=== PATIENT | female | born 1935 | race Caucasian/White ===

== ENCOUNTER 2016-10-28 05:38 | Inpatient (IN) | payer MEDICARE ==
[2016-10-28] MEDS ORDERED: Hydromorphone 1 mg/ml Ampule IV ONE (06:05)
[2016-10-28] MEDS ORDERED: Sodium Chloride 0.9% 1000 ML 1,000 ML IV STA (06:05)
[2016-10-28] MEDS ORDERED: Phenergan 25 MG INJ IV ONE (06:05)
[2016-10-28] MEDS ORDERED: Sodium Chloride 0.9% 1000 ML 1,000 ML ONE (06:12)
[2016-10-28] MEDS ORDERED: Hydromorphone 1 mg/ml Ampule ONE (06:12)
[2016-10-28] MEDS ORDERED: Phenergan 25 MG INJ ONE (06:12)
--- NOTE | 2016-10-28 06:12 | ERPHSYRPT ---
- History of Present Illness Historian: patient Exam Limitations: no limitations Patient Subjective Stated Complaint: pt states she has been vomiting all night and hasnt felt good since yesterday at supper. [facility] staff states she has a hx of bowel obstr and vomit has begun to smell like stool. Triage Nursing Assessment: pt alert and oriented to person, place, and time. repetitive speech noted. skin pink warm and dry. respirations nonlabored with lungs cta. bowel sounds to all 4 quads hypo. pt states she was passing flatus with her last bm at approx 1900 yesterday. no vomiting at this time. Timing/Duration: yesterday Quality: cramping Abdominal Pain Onset Location: generalized abdomen Severity of Pain-Max: moderate Severity of Pain-Current: moderate Modifying Factors: Improves With: eating Associated Symptoms: vomiting (fecal-smelling emesis) Previous symptoms: same symptoms as today (with prior SBO) Hx Tetanus, Diphtheria Vaccination/Date Given: Yes Hx Influenza Vaccination/Date Given: Yes Hx Pneumococcal Vaccination/Date Given: Yes Immunizations Up to Date: No <EVIN JOSE - Last Filed: 10/28/16 07:29> <JAY DE LEON - Last Filed: 10/28/16 07:44> - History of Present Illness Time Seen by Provider: 10/28/16 06:01 Physician History: FOR THE PAST 11 HOURS PT HAS HAD 3 EPISODES OF VOMITING WITHOUT BLOOD AND DIARRHEA X1 WITH MID ABDOMINAL PAIN AND NAUSEA. PT DENIES CHEST PAIN, SHORTNESS OF AIR, FEVER. (EVIN JOSE) Allergies/Adverse Reactions: No Known Drug Allergies Allergy (Verified 10/28/16 06:02) Home Medications: Potassium Chloride 20 Meq Tab [Potassium Chloride 20 MEQ TABLET] 20 meq PO BID 10/23/14 [History] Rosuvastatin Calcium [Crestor] 10 mg PO HS 10/23/14 [History] Furosemide [Lasix] 40 mg PO 0800 11/04/14 [History] Magnesium Oxide 400 mg [Mag-Ox 400] 800 mg PO 08,199906/03/15 [History] Omeprazole 20 MG [Prilosec 20 mg] 20 mg PO BID 06/03/15 [History] Acetaminophen 325 mg [Tylenol 325 mg] 650 mg PO Q4HPRN PRN 11/26/15 [ History] Docusate Sodium 100 mg [Colace 100 MG] 1 cap PO DAILY 11/26/15 [History] Lorazepam 0.5 mg [Ativan 0.5 MG] 1 tab PO HSPRN PRN 11/26/15 [History] Glucagon 1 mg [GlucaGen 1 MG] 1 mg IM UD PRN 03/31/16 [History] Na Phos,M-B/Na Phos,Di-Ba [Enema] 1 applic RC DAILY PRN PRN 03/31/16 [History] Tramadol HCl 50 mg [Ultram 50 mg] 50 mg PO Q6HPRN PRN 03/31/16 [History] Guaifenesin [Q-Tussin] 100 mg PO Q4HPRN PRN 10/28/16 [History] - Review of Systems Constitutional: No Fever Eyes: No Symptoms Ears, Nose, & Throat: No Symptoms Respiratory: No Dyspnea Cardiac: No Chest Pain Abdominal/Gastrointestinal: Abdominal Pain, Nausea, Vomiting, Diarrhea Neurological: No Symptoms Psychological: No Symptoms Endocrine: No Symptoms Hematologic/Lymphatic: No Symptoms All Other Systems: Reviewed and Negative <EVIN JOSE - Last Filed: 10/28/16 07:29> - Past Medical History Pertinent Past Medical History: Yes Neurological History: Dementia ENT History: No Pertinent History Cardiac History: High Cholesterol, Hypertension Respiratory History: No Pertinent History Endocrine Medical History: Diabetes Type II Musculoskeletal History: No Pertinent History GI Medical History: GERD History: No Pertinent History Psycho-Social History: No Pertinent History Female Reproductive Disorders: No Pertinent History Other Medical History: post procedural HTN, kidney infections, bowel obstructions - Past Surgical History Past Surgical History: Yes Neuro Surgical History: No Pertinent History Cardiac: No Pertinent History Respiratory: No Pertinent History Gastrointestinal: Cholecystectomy Musculoskeletal: No Pertinent History Female Surgical History: Hysterectomy Other Surgical History: Tonsils removed as child, son [facility] did a stomach ulcer surgery about a year ago - Social History Smoking Status: Never smoker Exposure to second hand smoke: No Drug Use: none Patient Lives Alone: No - Female History Hx Last Menstrual Period: post <EVIN JOSE - Last Filed: 10/28/16 07:29> - Physical Exam General Appearance: alert Eye Exam: PERRL/EOMI Ears, Nose, Throat Exam: pharynx normal, dry mucous membranes Neck Exam: normal inspection Respiratory Exam: lungs clear Cardiovascular Exam: normal heart sounds Gastrointestinal/Abdomen Exam: soft, tenderness (MILD DIFFUSE ABDOMINAL TENDERNESS), other (B.S. MILDLY HYPERACTIVE AND NORMOTONIC.) Back Exam: normal range of motion Extremity Exam: normal inspection Neurologic Exam: alert, cooperative Skin Exam: warm, dry SpO2 Interpretation: normal SpO2: 94 Oxygen Delivery: Room Air <DAMONEVIN VELASQUEZLASHAE - Last Filed: 10/28/16 07:29> <JAY DE LEON - Last Filed: 10/28/16 07:44> - Nursing Vital Signs Nursing Vital Signs: Initial Vital Signs Temperature 97.8 F Temperature Source Oral Pulse Rate 91 Respiratory Rate 18 Blood Pressure [] 128/68 Pain Intensity 4 - Course Nursing assessment & vital signs reviewed: Yes - CT Exams Abdomen/Pelvis CT Interpretation: Tele-radiologist Report (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 Grossly unchanged. Recurrent severe SBO with transition point not identified, likely mid ileum.) <DAMONEVIN - Last Filed: 10/28/16 07:29> - Progress Progress: unchanged Discussed with DrJulia: Ezra (accepts admit.), Other (Dr. Kenia Deluca notified with recs for NG to low wall int suction and Mefoxin 1 gm Q6 hours IV. ) Counseled pt/family regarding: lab results, diagnosis, need for follow-up, rad results <DAMONEVIN TASHA - Last Filed: 10/28/16 07:29> - Departure Time of Disposition: 07:30 Departure Disposition: In-patient Admission Critical Care Time: Yes Critical Care Time(excluding separately billable procedures): 30-74 minutes <DAMONEVIN EDLASHAE - Last Filed: 10/28/16 07:29> - Departure Critical Care Time: Yes Critical Care Time(excluding separately billable procedures): 30-74 minutes <JAY DE LEON - Last Filed: 10/28/16 07:44> - Departure Clinical Impression: Small bowel obstruction Diabetes mellitus Qualifiers: Diabetes mellitus type: type 2 Diabetes mellitus complication status: without complication Diabetes mellitus residential insulin use: unspecified residential insulin use status Qualified Code(s): E11.9 - Type 2 diabetes mellitus without complications Condition: Stable Referrals: ARI DAMICO MD [Primary Care Provider] -
[2016-10-28 06:31] LABS: BASOPHIL % 0.1 % (0.0-0.4); Eosinophil % 0.1 % (0.00-5.0); Granulocytes % 87.3 % (36.0-66.0); Lymphocytes % 8.2 % (24.0-44.0); Mean Cell Volume 89.9 fl (78-100); Mean Corpuscular Hemoglobin 28.8 pg (26-32); Mean Platelet Volume 9.6 fl (6-9.5); Monocytes % 4.3 % (0.0-12.0); Platelet Count 284 K/mm3 (150-450); Red Blood Count 5.34 M/mm3 (4.1-5.4)
[2016-10-28 06:40] LABS: Bacteria FEW /HPF (NEGATIVE); COMPLETE URINE MICROSCOPIC? YES; Collection Type CATH; Mucus SLIGHT /HPF (NEGATIVE)
[2016-10-28 06:56] LABS: ALBUMIN 4.6 g/dL (3.4-5.0); ANION GAP 15.7 MEQ/L (5-15); BILIRUBIN,TOTAL 0.4 mg/dL (0.2-1.0); Carbon Dioxide 31.5 mEq/L (21-32); Potassium 4.2 mEq/L (3.5-5.1); Total Protein 8.8 gm/dL (6.4-8.2)
[2016-10-28] MEDS ORDERED: MEFOXIN 1 Gm/ D5W 50 Ml** 50 ML IV ONE (07:44)
[2016-10-28] MEDS ORDERED: MORPHINE SULFATE 2 MG INJ IV PRN (08:55)
[2016-10-28] MEDS ORDERED: NovoLOG Insulin SQ PRN (08:55)
[2016-10-28] MEDS: PROTONIX 40 MG IV IV SCH (10:04)
[2016-10-28] MEDS: Sodium Chloride 0.9% 1000 ML 1,000 ML IV SCH (10:04)
--- NOTE | 2016-10-28 10:10 | XRAY ---
Indication: Left abdomen and pelvic pain. Nausea. Multiple contiguous images obtained through the abdomen and pelvis without contrast as ordered. Comparison: March 31, 2016. Lung bases again demonstrates minimal left base atelectasis/scarring. Heart is not enlarged and again demonstrates tiny anterior pericardial effusion/thickening. There is partially visualized known right anterior mediastinal soft tissue mass. Stable moderate-sized hiatal hernia. Noncontrasted stomach and small bowel loops again abnormally fluid distended to the level of the pelvis with asynchronous fluid leveling favoring distal small bowel obstruction. Small bowel loops are distended up to 5.3 cm. There remains little bowel gas in the colon. Stable scattered colonic diverticulosis. No free fluid/air. Stable hepatic calcified granuloma, cholecystectomy, hysterectomy, and previous reported appendectomy. 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 New Huang catheter empties the bladder. Remaining liver, pancreas, spleen, adrenal glands, kidneys, and ureters are unremarkable for noncontrast exam. Impression: 1. Again abnormal CT abdomen/pelvis exam favoring distal small bowel obstruction. 2. Stable hiatal hernia and colonic diverticulosis. 3. Partially visualized known anterior mediastinal mass that was detailed on CT chest study November 27, 2015. Comment: Preliminary interpretation was made by [facility]. No discrepancy. CTDI 21.67
[2016-10-28] MEDS: MEFOXIN 1 Gm/ D5W 50 Ml** 50 ML IV SCH ×2 (12:51→17:15)
[2016-10-28] MEDS ORDERED: Ativan 2 MG/1 ML VIAL IV ONE (13:02)
[2016-10-28] MEDS: Zofran 4 MG/2 ML VIAL IV PRN (13:16)
--- NOTE | 2016-10-28 15:03 | XRAY ---
Indication: NG tube placement. NG tube was inserted in patient's left nostril and advanced into the stomach lumen under fluoroscopic control. The tip was positioned in the antral stomach. Impression: Technically successful fluoroscopic NG tube insertion. 1.5 minute fluoroscopy used.
--- NOTE | 2016-10-28 16:39 | PCM.HP ---
History of Present Illness - Chief Complaint Chief Complaint: SBO History of Present Illness: is a 81 year old female who [facility] with a 2 day history of abdominal pain, apparently she vomited all night and vomitus smelled of feces, she has had a history of SBO in the past. She reports normal bowel movements yesterday x 3, no blood in the stool, no diarrhea of constipation. - Review of Systems Constitutional: No Fever, No Chills Respiratory: No Cough, No Short Of Breath Cardiac: No Chest Pain, No Edema, No Syncope Abdominal/Gastrointestinal: Abdominal Pain, Nausea, Vomiting, No Diarrhea, No Constipation Skin: No Rash All Other Systems: Reviewed and Negative Medications & Allergies Home Medications: Home Medication List Potassium Chloride 20 Meq Tab [Potassium Chloride 20 MEQ TABLET] 20 meq PO BID 10/23/14 [History Confirmed 10/28/16] Rosuvastatin Calcium [Crestor] 10 mg PO HS 10/23/14 [History Confirmed 10/28/16] Furosemide [Lasix] 40 mg PO DAILY 11/04/14 [History Confirmed 10/28/16] Magnesium Oxide 400 mg [Mag-Ox 400] 800 mg PO BID 06/03/15 [History Confirmed 10/28/16] Omeprazole 20 MG [Prilosec 20 mg] 20 mg PO BID 06/03/15 [History Confirmed 10/28] Acetaminophen 325 mg [Tylenol 325 mg] 650 mg PO Q4HPRN PRN 11/26/15 [ History Confirmed 10/28/16] Docusate Sodium 100 mg [Colace 100 MG] 1 cap PO DAILY 11/26/15 [History Confirmed 10/28/16] Lorazepam 0.5 mg [Ativan 0.5 MG] 1 tab PO HS 11/26/15 [History Confirmed 10/28/16] Glucagon 1 mg [GlucaGen 1 MG] 1 mg IM UD PRN 03/31/16 [History Confirmed 10/28/16] Na Phos,M-B/Na Phos,Di-Ba [Enema] 1 applic RC DAILY PRN PRN 03/31/16 [History Confirmed 10/28/16] Tramadol HCl 50 mg [Ultram 50 mg] 50 mg PO Q6HPRN PRN 03/31/16 [History Confirmed 10/28/16] Guaifenesin [Q-Tussin] 100 mg PO Q4HPRN PRN 10/28/16 [History Confirmed 10/28/16 ] Allergies/Adverse Reactions: Allergies Allergy/AdvReac Type Severity Reaction Status Date / Time No Known Drug Allergies Allergy Verified 10/28/16 06:02 - Past Medical History Past Medical History: Yes Neurological History: Dementia ENT History: No Pertinent History Cardiac History: High Cholesterol, Hypertension Respiratory History: No Pertinent History Endocrine Medical History: Diabetes Type II Musculoskelatal History: No Pertinent History GI Medical History: GERD History: No Pertinent History Pyscho-Social History: No Pertinent History Reproductive Disorders: No Pertinent History Comment: post procedural HTN, kidney infections, bowel obstructions - Female History Hx Last Menstrual Period: hysterectomy Are you now?: No - Past Surgical History Past Surgical History: Yes Neuro Surgical History: No Pertinent History Cardiac History: No Pertinent History Respiratory Surgery: No Pertinent History GI Surgical History: Cholecystectomy Musculskeletal Surgical Hx: No Pertinent History Female Surgical History: Hysterectomy Other Surgical History: Tonsils removed as child, son states [facility] did a stomach ulcer surgery about a year ago - Social History Smoking Status: Never smoker Exposure to second hand smoke: No Alcohol: None Drug Use: none - Physical Exam Vital Signs: Vital Signs - 24 hr Temp Pulse Resp BP Pulse Ox 10/28/16 12:00 98.8 F 76 18 143/74 93 L 10/28/16 09:35 98.4 F 93 H 18 184/85 93 L 10/28/16 08:55 93 L 10/28/16 08:07 88 20 130/70 10/28/16 07:40 94 L 10/28/16 07:25 91 H 18 128/68 10/28/16 06:52 80 18 96 10/28/16 05:48 97.8 F 89 18 150/66 94 L General Appearance: no apparent distress, alert Respiratory Exam: normal breath sounds, lungs clear, No respiratory distress Cardiovascular Exam: regular rate/rhythm, normal heart sounds, normal peripheral pulses Gastrointestinal/Abdomen Exam: No normal bowel sounds, No tenderness, No guarding, No rebound Extremity Exam: normal inspection, normal range of motion, pelvis stable Skin Exam: normal color, warm, dry, No rash Results - Labs Lab/Micro Results: Accuchecks Date 10/28/16 Time 11:30 Accuchecks Date 10/28/16 Time 11:30 - Radiology Impressions Radiology Exams & Impressions: Radiology Procedures Category Date Time Status NG TUBE PLACEMENT Routine Exams 10/28/16 13:05 Completed Assessment/Plan (1) Small bowel obstruction Current Visit: No Status: Acute Assessment & Plan: NG in place to LIS, NPO and surgery has been consulted. will follow at this time. receiving mefoxin Code(s): K56.69 - OTHER INTESTINAL OBSTRUCTION (2) Diabetes mellitus Current Visit: Yes Status: Chronic Qualifiers: Diabetes mellitus type: type 2 Diabetes mellitus complication status: without complication Diabetes mellitus senior living insulin use: unspecified senior living insulin use status Qualified Code(s): E11.9 - Type 2 diabetes mellitus without complications Assessment & Plan: monitor blood sugar and cover with low dose SSI Code(s): E11.9 - TYPE 2 DIABETES MELLITUS WITHOUT COMPLICATIONS
[2016-10-29] MEDS: MEFOXIN 1 Gm/ D5W 50 Ml** 50 ML IV SCH ×5 (06:05→23:00)
--- NOTE | 2016-10-29 07:37 | PCM.NOTE ---
Date and Time: 10/29/16 07 Subjective Assessment: she has some burning in her upper abdomen and the NG is bothering her. She has not had a BM but says she is passing gas but also has some confusion at times and does not recall talking with Dr. Deluca or Ezra yesterday. Objective Exam General Appearance: no apparent distress Neurologic Exam: alert, cooperative Skin Exam: warm, dry Eye Exam: No scleral icterus, No pale conjunctivae Ears, Nose, Throat Exam: moist mucous membranes Neck Exam: non-tender, supple Lymphatic Exam: No adenopathy Respiratory Exam: lungs clear Cardiovascular Exam: regular rate/rhythm, normal heart sounds, No edema Gastrointestinal/Abdomen Exam: soft, normal bowel sounds, other (NG in right nare with yellow / brown output), No tenderness, No distention, No guarding Extremity Exam: normal inspection, No calf tenderness, No pedal edema OBJECTIVE DATA Vital Signs: Vital Signs - 24 hr Temp Pulse Resp BP Pulse Ox 10/29/16 04:00 98.5 F 81 18 143/65 93 L 10/28/16 23:55 98.6 F 88 16 139/63 92 L 10/28/16 20:00 98.7 F 93 H 17 140/65 92 L 10/28/16 16:00 99.2 F 90 18 181/75 91 L 10/28/16 12:00 98.8 F 76 18 143/74 93 L 10/28/16 09:35 98.4 F 93 H 18 184/85 93 L 10/28/16 08:55 93 L 10/28/16 08:07 88 20 130/70 10/28/16 07:40 94 L Pain Assessment - Last Documented Pain Scale Used 0-10 Pain Scale Intake and Output: Intake & Output 10/26/16 10/27/16 10/28/16 10/29/16 11:59 11:59 11:59 11:59 Intake Total 0 1425 Output Total 1950 Balance 0 -525 Weight 88.195 kg 88.042 kg Lab Results: Accuchecks Date 10/29/16 Date 10/29/16 Date 10/28/16 Date 10/28/16 Time 06:00 Time 00:00 Time 11:30 Accucheck Value: 114 Accucheck Value: 159 Accucheck Value: 165 Radiology Exams: Radiology Procedures Category Date Time Status NG TUBE PLACEMENT Routine Exams 10/28/16 13:05 Completed Assessment/Plan (1) Small bowel obstruction Current Visit: Yes Status: Acute Assessment & Plan: Dr. Deluca consulted continue NG per surgery orders some discrepencie in the charting of NG output but looks like 1350 mL out NG Code(s): K56.69 - OTHER INTESTINAL OBSTRUCTION (2) Diabetes mellitus Current Visit: Yes Status: Chronic Qualifiers: Diabetes mellitus type: type 2 Diabetes mellitus complication status: without complication Diabetes mellitus local intermodal truck driver insulin use: unspecified intermediate insulin use status Qualified Code(s): E11.9 - Type 2 diabetes mellitus without complications Code(s): E11.9 - TYPE 2 DIABETES MELLITUS WITHOUT COMPLICATIONS (3) Dementia Current Visit: Yes Status: Chronic Qualifiers: Dementia type: unspecified type Code(s): F03.90 - UNSPECIFIED DEMENTIA WITHOUT BEHAVIORAL DISTURBANCE (4) Acute kidney failure Current Visit: Yes Status: Acute Assessment & Plan: secondary to dehydration continue iv hydration and NG tube repeat labs renea m
[2016-10-29] MEDS: PROTONIX 40 MG IV IV SCH (09:51)
[2016-10-29] MEDS: Sodium Chloride 0.9% 1000 ML 1,000 ML IV SCH ×4 (11:28→22:53)
[2016-10-30] MEDS: MEFOXIN 1 Gm/ D5W 50 Ml** 50 ML IV SCH ×4 (05:11→23:50)
[2016-10-30 06:05] LABS: ANION GAP 12.4 MEQ/L (5-15); Mean Cell Volume 92.5 fl (78-100); Mean Corpuscular Hemoglobin 28.9 pg (26-32); Mean Platelet Volume 9.3 fl (6-9.5); Platelet Count 245 K/mm3 (150-450); Potassium 3.6 mEq/L (3.5-5.1); Red Blood Count 4.29 M/mm3 (4.1-5.4); Red Cell Distribution Width 14.1 % (11.5-14.0); White Blood Count 9.2 K/mm3 (4.0-10.5)
[2016-10-30] MEDS: PROTONIX 40 MG IV IV SCH (09:06)
[2016-10-30] MEDS: Zofran 4 MG/2 ML VIAL IV PRN (09:44)
--- NOTE | 2016-10-30 10:05 | PCM.NOTE ---
Date and Time: 10/30/16 1000 Subjective Assessment: No nausea currently she removed her own NG tube yesterday morning about 10 am. It has been out since that time and there has been no vomiting. There is still some intermittent discomfort she states in her abdomen. no bowel movement she states she is passing flatulence Objective Exam General Appearance: no apparent distress Neurologic Exam: alert, cooperative Skin Exam: warm, dry Eye Exam: No scleral icterus, No pale conjunctivae Ears, Nose, Throat Exam: moist mucous membranes Neck Exam: non-tender, supple Respiratory Exam: normal breath sounds, lungs clear Cardiovascular Exam: regular rate/rhythm, No edema Gastrointestinal/Abdomen Exam: soft, tenderness, other (bowel sounds improved this am and normal currently intermittently dimished per nursing. has some mild diffuse tenderness mostly in the left lower quadrant it appears.), No distention, No guarding, No ecchymosis, No rebound Extremity Exam: No pedal edema, No swelling OBJECTIVE DATA Vital Signs: Vital Signs - 24 hr Temp Pulse Resp BP Pulse Ox 10/30/16 07:35 98.6 F 85 18 147/70 93 L 10/30/16 04:00 98.3 F 94 H 18 170/70 90 L 10/29/16 23:01 99 F 83 16 139/62 92 L 10/29/16 19:49 98.2 F 84 20 138/62 93 L 10/29/16 16:00 84 18 133/59 92 L 10/29/16 12:00 98.1 F 77 18 134/63 92 L Pain Assessment - Last Documented Pain Scale Used 0-10 Pain Scale Intake and Output: Intake & Output 10/27/16 10/28/16 10/29/16 10/30/16 11:59 11:59 11:59 11:59 Intake Total 0 1425 1812 Output Total 1950 650 Balance 0 -525 1162 Weight 88.195 kg 88.042 kg 93.259 kg Lab Results: Accuchecks Date 10/30/16 Date 10/30/16 Date 10/29/16 Date 10/29/16 Time 06:00 Time 00:00 Accucheck Value: 92 Accucheck Value: 97 Accucheck Value: 107 Accucheck Value: 99 Lab Results-Last 24 Hours 10/30/16 10/30/16 Range/Units 05:15 05:15 WBC 9.2 (4.0-10.5) K/mm3 RBC 4.29 (4.1-5.4) M/mm3 Hgb 12.4 (12.0-16.0) gm/dl Hct 39.7 (35-47) % MCV 92.5 (78-100) fl MCH 28.9 (26-32) pg MCHC 31.2 L (32-36) g/dl RDW 14.1 H (11.5-14.0) % Plt Count 245 (150-450) K/mm3 MPV 9.3 (6-9.5) fl Sodium 145 (136-145) mEq/L Potassium 3.6 (3.5-5.1) mEq/L Chloride 106 (98-107) mEq/L Carbon Dioxide 30.0 (21-32) mEq/L Anion Gap 12.4 (5-15) MEQ/L BUN 40 H (9-20) mg/dL Creatinine 1.40 H (0.55-1.30) mg/dl Estimated GFR 38 ML/MIN Glucose 99 (70-110) MG/DL Calcium 8.7 (8.5-10.1) mg/dL Radiology Exams: Radiology Procedures Category Date Time Status NG TUBE PLACEMENT Routine Exams 10/28/16 13:05 Completed Assessment/Plan (1) Small bowel obstruction Current Visit: Yes Status: Acute Assessment & Plan: she pulled out her NG tube yesterday there was still significant output from the tube when she pulled it. it has been out now for 24 hours no vomiting she is having better bowel sounds continue the ceftin d/c laure[place] she will try some ice chips but don't want to advance diet any further today unless doing much better and ok'd by surgery scd's and attempt ambulation protonix Code(s): K56.69 - OTHER INTESTINAL OBSTRUCTION (2) Diabetes mellitus Current Visit: Yes Status: Chronic Qualifiers: Diabetes mellitus type: type 2 Diabetes mellitus complication status: without complication Diabetes mellitus manager terminal insulin use: unspecified manager terminal insulin use status Qualified Code(s): E11.9 - Type 2 diabetes mellitus without complications Assessment & Plan: controlled currently Code(s): E11.9 - TYPE 2 DIABETES MELLITUS WITHOUT COMPLICATIONS (3) Dementia Current Visit: Yes Status: Chronic Qualifiers: Dementia type: unspecified type Code(s): F03.90 - UNSPECIFIED DEMENTIA WITHOUT BEHAVIORAL DISTURBANCE (4) Acute kidney failure Current Visit: Yes Status: Acute Assessment & Plan: continue iv hydration
[2016-10-30] MEDS: Sodium Chloride 0.9% 1000 ML 1,000 ML IV SCH (13:01)
[2016-10-31] MEDS: Sodium Chloride 0.9% 1000 ML 1,000 ML IV SCH (00:32)
[2016-10-31] MEDS: MEFOXIN 1 Gm/ D5W 50 Ml** 50 ML IV SCH ×2 (05:17→12:42)
--- NOTE | 2016-10-31 07:54 | PCM.NOTE ---
Date and Time: 10/31/16 0752 Subjective Assessment: pt pulled out her own NG tube this weekend, didn't tolerate clears. refuses to have another NG tube placed. vomited x 1 this morning despite being NPO over night Objective Exam General Appearance: no apparent distress, alert Respiratory Exam: normal breath sounds, lungs clear, No respiratory distress Cardiovascular Exam: regular rate/rhythm, normal heart sounds Gastrointestinal/Abdomen Exam: soft, No normal bowel sounds, No tenderness, No distention Extremity Exam: normal inspection, normal range of motion OBJECTIVE DATA Vital Signs: Vital Signs - 24 hr Temp Pulse Resp BP Pulse Ox 10/31/16 04:00 98.3 F 70 20 147/67 92 L 10/31/16 00:00 98.5 F 78 20 145/69 93 L 10/30/16 20:00 98.9 F 85 18 166/77 92 L 10/30/16 16:07 97.7 F 78 20 138/70 95 10/30/16 12:00 97.9 F 81 18 149/66 94 L Pain Assessment - Last Documented Pain Scale Used 0-10 Pain Scale Intake and Output: Intake & Output 10/28/16 10/29/16 10/30/16 10/31/16 11:59 11:59 11:59 11:59 Intake Total 0 1425 1812 2605 Output Total 9942 601 3981 Balance 0 -525 1162 -95 Weight 88.195 kg 88.042 kg 93.259 kg 92.306 kg Lab Results: Accuchecks Date 10/31/16 Date 10/31/16 Date 10/30/16 Date 10/30/16 Time 04:40 Time 00:00 Time 18:00 Time 12:00 Accucheck Value: 87 Accucheck Value: 93 Accucheck Value: 126 Accucheck Value: 95 Radiology Exams: Radiology Procedures Category Date Time Status ABDOMEN 2 VIEW Routine Exams 10/31/16 08:00 Ordered Assessment/Plan (1) Small bowel obstruction Current Visit: Yes Status: Acute Assessment & Plan: discussed need for decompression, patient doesn't want another NG tube. wants to drink at this time. will see surgery opinion, needs NG replaced but refuses Code(s): K56.69 - OTHER INTESTINAL OBSTRUCTION (2) Diabetes mellitus Current Visit: Yes Status: Chronic Qualifiers: Diabetes mellitus type: type 2 Diabetes mellitus complication status: without complication Diabetes mellitus penitentiary insulin use: unspecified long term care administrator insulin use status Qualified Code(s): E11.9 - Type 2 diabetes mellitus without complications Code(s): E11.9 - TYPE 2 DIABETES MELLITUS WITHOUT COMPLICATIONS
[2016-10-31] MEDS: PROTONIX 40 MG IV IV SCH (08:40)
--- NOTE | 2016-10-31 08:49 | XRAY ---
Indication: Bowel obstruction. Comparison: CT abdomen/pelvis October 28, 2016. 2 views of the abdomen demonstrates mild small bowel synchronous fluid leveling favoring ileus. There is rectal bowel gas. No focal bowel dilatation or free air. Solid organs obscured. Osseous structures intact with lumbar degenerative changes. Lung bases clear with small hiatal hernia. Impression: Small bowel synchronous fluid leveling favoring ileus. No focal bowel dilatation/obstruction. Small hiatal hernia.
[2016-10-31] MEDS ORDERED: Dulcolax 10 MG SUPP PR ONE (12:28)
[2016-10-31 16:00] VITALS: BP 163/77; PULSE 71; O2SAT 94
== END 2016-10-31 15:15 | DRG 390 ==
LOC: ED 05:38 → MED SURG 08:50
PROVIDERS: ADMIT Family Medicine; ATTEND Family Medicine
DX: K56.69 Other intestinal obstruction (principal); E11.9 Type 2 diabetes mellitus without complications; F03.90 Unspecified dementia, unspecified severity, without behavioral disturbance, psychotic disturbance, mood disturbance, and anxiety; N19 Unspecified kidney failure; E86.0 Dehydration; Z79.899 Other long term (current) drug therapy
CPT/HCPCS: 36415; 43752; 51702; 74020; 74176; 80048; 80053; 81000; 82150; 82962; 83605; 83690; 83735; 85025; 85027; 87040; 96360; 96361; 96365; 96374; 96375; 99285; J0694; J1170; J2060; J2405; J2550; A9270-GY

== ENCOUNTER 2017-03-28 11:04 | Inpatient (IN) | payer MEDICARE ==
[2017-03-28] MEDS ORDERED: Sodium Chloride 0.9% 1000 ML 1,000 ML IV SCH (12:00)
[2017-03-28] MEDS ORDERED: PROTONIX 40 MG IV IV ONE ×2 (12:00→12:11)
[2017-03-28] MEDS ORDERED: Zofran 4 MG/2 ML VIAL IV ONE (12:00)
--- NOTE | 2017-03-28 12:00 | ERPHSYRPT ---
- History of Present Illness Time Seen by Provider: 03/28/17 11:25 Historian: patient, EMS Exam Limitations: clinical condition Patient Subjective Stated Complaint: senior care reports pt began vomitng this morning. states pt has had Hx of bowel obstruction in the past. pt states she felt fine last pm at supper and this started this morning. Triage Nursing Assessment: pt pink, warm, moist. abdomen obese. bowel sounds hypoactive in bilateral lower quads. active in bilateral upper quads. pt alert and oriented x3. Physician History: Emesis yellowish and smells fecal here. Last BM last pm. Timing/Duration: today Activities at Onset: rest Quality: aching Abdominal Pain Onset Location: generalized abdomen Pain Radiation: no radiation Severity of Pain-Max: mild Severity of Pain-Current: mild Modifying Factors: Improves With: vomiting Associated Symptoms: fever/chills Previous symptoms: same symptoms as today (with prior bowel obstruction) Allergies/Adverse Reactions: No Known Drug Allergies Allergy (Verified 03/28/17 11:13) Home Medications: Potassium Chloride 20 Meq Tab [Potassium Chloride 20 MEQ TABLET] 20 meq PO BID 10/23/14 [History] Rosuvastatin Calcium [Crestor] 10 mg PO HS 10/23/14 [History] Furosemide [Lasix] 40 mg PO DAILY 11/04/14 [History] Magnesium Oxide 400 mg [Mag-Ox 400] 800 mg PO BID 06/03/15 [History] Omeprazole 20 MG [Prilosec 20 mg] 20 mg PO BID 06/03/15 [History] Acetaminophen 325 mg [Tylenol 325 mg] 650 mg PO Q4HPRN PRN 11/26/15 [ History] Docusate Sodium 100 mg [Colace 100 MG] 1 cap PO DAILY 11/26/15 [History] Lorazepam 0.5 mg [Ativan 0.5 MG] 1 tab PO HS 11/26/15 [History] Glucagon 1 mg [GlucaGen 1 MG] 1 mg IM UD PRN 03/31/16 [History] Na Phos,M-B/Na Phos,Di-Ba [Enema] 1 applic RC DAILY PRN PRN 03/31/16 [History] Guaifenesin [Q-Tussin] 100 mg PO Q4HPRN PRN 10/28/16 [History] Escitalopram Oxalate 10 mg [Lexapro 10 MG] 10 mg PO DAILY 03/28/17 [History] Hx Tetanus, Diphtheria Vaccination/Date Given: Yes (unknown) Hx Influenza Vaccination/Date Given: Yes Hx Pneumococcal Vaccination/Date Given: Yes Immunizations Up to Date: Yes - Review of Systems Constitutional: No Symptoms Eyes: No Symptoms Ears, Nose, & Throat: No Symptoms Respiratory: No Symptoms Cardiac: No Symptoms Abdominal/Gastrointestinal: Abdominal Pain, Nausea, Vomiting Genitourinary Symptoms: No Symptoms Musculoskeletal: No Symptoms Skin: No Symptoms Neurological: No Symptoms Psychological: No Symptoms Endocrine: No Symptoms Hematologic/Lymphatic: No Symptoms Immunological/Allergic: No Symptoms - Past Medical History Pertinent Past Medical History: Yes Neurological History: Dementia ENT History: No Pertinent History Cardiac History: High Cholesterol, Hypertension Respiratory History: No Pertinent History Endocrine Medical History: Diabetes Type II Musculoskeletal History: No Pertinent History GI Medical History: GERD History: No Pertinent History Psycho-Social History: No Pertinent History Female Reproductive Disorders: No Pertinent History Other Medical History: post procedural HTN, kidney infections, bowel obstructions - Past Surgical History Past Surgical History: Yes Neuro Surgical History: No Pertinent History Cardiac: No Pertinent History Respiratory: No Pertinent History Gastrointestinal: Cholecystectomy Musculoskeletal: No Pertinent History Female Surgical History: Hysterectomy Other Surgical History: Tonsils removed as child, son [facility] did a stomach ulcer surgery about a year ago - Social History Smoking Status: Never smoker Exposure to second hand smoke: No Drug Use: none Patient Lives Alone: No - Nursing Vital Signs Nursing Vital Signs: Initial Vital Signs Temperature 98.4 F 03/28/17 11:05 Pulse Rate 93 H 03/28/17 11:05 Respiratory Rate 18 03/28/17 11:05 Blood Pressure 140/80 03/28/17 11:05 O2 Sat by Pulse Oximetry 94 L 03/28/17 11:05 Pain Scale Pain Intensity 0 - Physical Exam General Appearance: mild distress Eye Exam: eyes nml inspection, No scleral icterus Ears, Nose, Throat Exam: normal ENT inspection, pharynx normal, dry mucous membranes Neck Exam: normal inspection, non-tender, supple, full range of motion Respiratory Exam: normal breath sounds, lungs clear, airway intact, No respiratory distress Cardiovascular Exam: regular rate/rhythm, normal heart sounds, normal peripheral pulses Gastrointestinal/Abdomen Exam: soft, other (quiet bowel sounds. ) Extremity Exam: normal inspection, normal range of motion, pelvis stable Neurologic Exam: alert, cooperative, normal mood/affect Skin Exam: warm, dry, pale SpO2 Interpretation: normal SpO2: 94 Oxygen Delivery: Room Air - Course Nursing assessment & vital signs reviewed: Yes Ordered Tests: Active Orders 24 hr Category Date Time Status IV Insertion STAT Care 03/28/17 11:44 Active cath [Cath for Specimen-Straight] STAT Care 03/28/17 11:45 Active ABDOMEN AND PELVIS W/0 CONTRAS [CT] Stat Exams 03/28/17 12:00 Completed CHEST 1 VIEW (PORTABLE) Stat Exams 03/28/17 12:00 Completed BLOOD CULTURE Stat Lab 03/28/17 12:05 Received CBC W DIFF Stat Lab 03/28/17 12:00 Completed CMP Stat Lab 03/28/17 12:00 Completed CULTURE,URINE Stat Lab 03/28/17 11:55 Received LIPASE Stat Lab 03/28/17 12:00 Completed Lactic Acid Stat Lab 03/28/17 13:04 Completed Manual Differential NC Stat Lab 03/28/17 12:00 Completed PROTIME WITH INR Stat Lab 03/28/17 12:00 Completed UA W/RFX UR CULTURE Stat Lab 03/28/17 11:55 Completed Medication Summary Generic Name Dose Route Start Last Admin Trade Name Freq PRN Reason Stop Dose Admin Sodium Chloride 1,000 mls @ 50 mls/hr 03/28/17 12:00 03/28/17 12:14 Sodium Chloride 0.9% 1000 Ml IV 04/27/17 11:59 50 mls/hr .Q20H LESLY Administration Discontinued Medications Generic Name Dose Route Start Last Admin Trade Name Freq PRN Reason Stop Dose Admin Ondansetron HCl 4 mg 03/28/17 12:00 03/28/17 12:14 Zofran 4 Mg/2 Ml Vial IV 03/28/17 12:01 4 mg STAT ONE Administration Ondansetron HCl Confirm 03/28/17 12:10 Zofran 4 Mg/2 Ml Vial Administered 03/28/17 12:11 Dose 4 mg .ROUTE .STK-MED ONE Pantoprazole Sodium 40 mg 03/28/17 12:00 03/28/17 12:14 Protonix 40 Mg Iv IV 03/28/17 12:01 40 mg STAT ONE Administration Pantoprazole Sodium Confirm 03/28/17 12:11 Protonix 40 Mg Iv Administered 03/28/17 12:12 Dose 40 mg IV .STK-MED ONE Lab/Rad Data: Laboratory Result Diagrams 03/28/17 12:00 03/28/17 12:00 Laboratory Results 03/28/17 03/28/17 03/28/17 Range/Units 13:04 12:00 12:00 WBC (4.0-10.5) K/mm3 RBC (4.1-5.4) M/mm3 Hgb (12.0-16.0) gm/dl Hct (35-47) % MCV (78-100) fl MCH (26-32) pg MCHC (32-36) g/dl RDW (11.5-14.0) % Plt Count (150-450) K/mm3 MPV (6-9.5) fl Segmented Neutrophils (36.0-66.0) % Band Neutrophils (0.0-2.0) % Lymphocytes (Manual) (24-44) % Monocytes (Manual) (0.0-12.0) % Differential Comment Platelet Estimate (NORMAL) INR 0.96 (0.8-3.0) Sodium 139 (136-145) mEq/L Potassium 4.1 (3.5-5.1) mEq/L Chloride 99 (98-107) mEq/L Carbon Dioxide 26.4 (21-32) mEq/L Anion Gap 17.8 H (5-15) MEQ/L BUN 34 H (9-20) mg/dL Creatinine 1.27 (0.55-1.30) mg/dl Estimated GFR 43 ML/MIN Glucose 187 H (70-110) MG/DL Lactic Acid 1.3 (0.4-2.0) Calcium 10.7 H (8.5-10.1) mg/dL Total Bilirubin 0.30 (0.2-1.0) mg/dL AST 15 (15-37) U/L ALT 18 (12-78) U/L Alkaline Phosphatase 122 H (46-116) U/L Serum Total Protein 8.9 H (6.4-8.2) gm/dL Albumin 4.8 (3.4-5.0) g/dL Lipase 132 (73-393) U/L Ur Collection Type Urine Color (YELLOW) Urine Appearance (CLEAR) Urine pH (5-6) Ur Specific Hammond (1.005-1.025) Urine Protein (Negative) Urine Ketones (NEGATIVE) Urine Blood (0-5) Santy/ul Urine Nitrite (NEGATIVE) Urine Bilirubin (NEGATIVE) Urine Urobilinogen (0-1) mg/dL Ur Leukocyte Esterase (NEGATIVE) Urine Glucose (NEGATIVE) mg/dL Specimen Received 03/28/17 03/28/17 Range/Units 12:00 11:55 WBC 20.4 H (4.0-10.5) K/mm3 RBC 5.53 H (4.1-5.4) M/mm3 Hgb 15.4 (12.0-16.0) gm/dl Hct 48.3 H (35-47) % MCV 87.3 (78-100) fl MCH 27.8 (26-32) pg MCHC 31.9 L (32-36) g/dl RDW 14.6 H (11.5-14.0) % Plt Count 298 (150-450) K/mm3 MPV 9.3 (6-9.5) fl Segmented Neutrophils 90 H (36.0-66.0) % Band Neutrophils 3 H (0.0-2.0) % Lymphocytes (Manual) 5 L (24-44) % Monocytes (Manual) 2 (0.0-12.0) % Differential Comment NORMAL Platelet Estimate NORMAL (NORMAL) INR (0.8-3.0) Sodium (136-145) mEq/L Potassium (3.5-5.1) mEq/L Chloride (98-107) mEq/L Carbon Dioxide (21-32) mEq/L Anion Gap (5-15) MEQ/L BUN (9-20) mg/dL Creatinine (0.55-1.30) mg/dl Estimated GFR ML/MIN Glucose (70-110) MG/DL Lactic Acid (0.4-2.0) Calcium (8.5-10.1) mg/dL Total Bilirubin (0.2-1.0) mg/dL AST (15-37) U/L ALT (12-78) U/L Alkaline Phosphatase (46-116) U/L Serum Total Protein (6.4-8.2) gm/dL Albumin (3.4-5.0) g/dL Lipase (73-393) U/L Ur Collection Type CATH Urine Color YELLOW (YELLOW) Urine Appearance SLIGHTLY CLOUDY (CLEAR) Urine pH 5.0 (5-6) Ur Specific Hammond 1.030 (1.005-1.025) Urine Protein TRACE (Negative) Urine Ketones NEGATIVE (NEGATIVE) Urine Blood 50 (0-5) Santy/ul Urine Nitrite NEGATIVE (NEGATIVE) Urine Bilirubin NEGATIVE (NEGATIVE) Urine Urobilinogen NORMAL (0-1) mg/dL Ur Leukocyte Esterase NEGATIVE (NEGATIVE) Urine Glucose NEGATIVE (NEGATIVE) mg/dL Specimen Received 03-28-17 1243 - Progress Progress: improved Discussed with : Tonia (accepts pt. for admission) Will see patient in: hospital (full admit) Counseled pt/family regarding: lab results, diagnosis, need for follow-up, rad results - Departure Time of Disposition: 13:30 Departure Disposition: In-patient Admission Clinical Impression: SBO (small bowel obstruction) Condition: Stable Critical Care Time: No Referrals: FAHEEM MCDONALD [Primary Care Provider] -
[2017-03-28] MEDS ORDERED: Zofran 4 MG/2 ML VIAL ONE (12:10)
[2017-03-28 12:14] LABS: INR 0.96 (0.8-3.0); PROTIME 10.9 SECONDS (9.95-12.35)
[2017-03-28 12:21] LABS: ALBUMIN 4.8 g/dL (3.4-5.0); ANION GAP 17.8 MEQ/L (5-15); BILIRUBIN,TOTAL 0.3 mg/dL (0.2-1.0); Carbon Dioxide 26.4 mEq/L (21-32); Potassium 4.1 mEq/L (3.5-5.1); Total Protein 8.9 gm/dL (6.4-8.2)
[2017-03-28 12:23] LABS: Mean Cell Volume 87.3 fl (78-100); Mean Corpuscular Hemoglobin 27.8 pg (26-32); Mean Platelet Volume 9.3 fl (6-9.5); Platelet Count 298 K/mm3 (150-450); Red Blood Count 5.53 M/mm3 (4.1-5.4); Red Cell Distribution Width 14.6 % (11.5-14.0); White Blood Count 20.4 K/mm3 (4.0-10.5)
--- NOTE | 2017-03-28 12:36 | XRAY ---
Indication: Vomiting. Comparison: November 04, 2014. Portable chest again demonstrates right apical and left base fibrosis/scarring. No focal infiltrate, consolidation, or large effusion. Heart is not enlarged. Bony thorax intact again with tiny left humeral head bone island. Impression: Stable nonacute chest with chronic features.
[2017-03-28 12:43] LABS: Collection Type CATH
[2017-03-28 12:44] LABS: ADD URINE CULTURE? YES (NO); Bilirubin NEGATIVE (NEGATIVE); Blood 50 Ery/ul (0-5); COMPLETE URINE MICROSCOPIC? NO; Glucose NEGATIVE (NEGATIVE); Leukocyte Esterase NEGATIVE (NEGATIVE)
[2017-03-28 12:47] LABS: BAND 3 % (0.0-2.0); Total Cells Counted 100
[2017-03-28 12:48] LABS: Platelet Estimate NORMAL (NORMAL)
--- NOTE | 2017-03-28 13:11 | XRAY ---
Indication: Nausea and vomiting. Multiple contiguous images obtained through the abdomen and pelvis without contrast as ordered. Comparison: October 28, 2016. Lung bases again demonstrates minimal left base atelectasis/scarring. Heart is not enlarged. Stable moderate-sized hiatal hernia. Noncontrasted stomach and small bowel loops again abnormally fluid distended with small bowel dilatation up to 5 cm. Transition point identified left mid abdomen consistent with small bowel obstruction. The more distal small bowel loops are decompressed and there remains little bowel gas in the colon. Stable scattered colonic diverticulosis. No free fluid/air. Stable hepatic calcified granuloma, cholecystectomy, hysterectomy, and previous reported appendectomy. 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 Remaining liver, pancreas, spleen, adrenal glands, kidneys, and ureters unremarkable for noncontrast exam. There remains heavy aortoiliac calcifications without AAA. Osseous structures intact again with mild degenerative changes throughout the spine and dextroscoliosis. Impression: 1. Again abnormal CT abdomen/pelvis exam favoring distal small bowel obstruction. Transition point somewhere left mid abdomen. 2. Stable hiatal hernia and colonic diverticulosis. CTDI 22.15
[2017-03-28] MEDS ORDERED: FLAGYL 500 MG IVPB 500 MG/100 ML BAG IV STA (14:05)
[2017-03-28] MEDS ORDERED: Zosyn 3.375GM/100 Ml D5W 3.375 GM/100 ML IVPB IV STA (14:05)
[2017-03-28] MEDS ORDERED: Zosyn 3.375GM/100 Ml D5W 3.375 GM/100 ML IVPB IV ONE (14:14)
[2017-03-28] MEDS ORDERED: MORPHINE SULFATE 2 MG INJ IV PRN (14:49)
[2017-03-28] MEDS ORDERED: NovoLIN R SQ PRN (14:49)
[2017-03-28] MEDS: Sodium Chloride 0.9% W/ 20 mEq KCl/LITER 1,000 ML IV SCH (16:04)
[2017-03-28] MEDS ORDERED: FEVERALL 650 MG RC PRN (17:02)
[2017-03-28] MEDS: FLAGYL 500 MG IVPB 500 MG/100 ML BAG IV SCH (21:39)
[2017-03-28] MEDS: Zosyn 3.375GM/100 Ml D5W 3.375 GM/100 ML IVPB IV SCH (21:58)
[2017-03-29] MEDS: Zosyn 3.375GM/100 Ml D5W 3.375 GM/100 ML IVPB IV SCH ×4 (02:04→17:12)
[2017-03-29] MEDS: FLAGYL 500 MG IVPB 500 MG/100 ML BAG IV SCH ×2 (02:09→05:23)
[2017-03-29] MEDS: Zofran 4 MG/2 ML VIAL IV PRN ×2 (04:30→17:16)
[2017-03-29 05:45] LABS: Mean Cell Volume 87.7 fl (78-100); Mean Corpuscular Hemoglobin 28.3 pg (26-32); Mean Platelet Volume 9.3 fl (6-9.5); Platelet Count 273 K/mm3 (150-450); Red Blood Count 4.87 M/mm3 (4.1-5.4); Red Cell Distribution Width 14.8 % (11.5-14.0); White Blood Count 16.7 K/mm3 (4.0-10.5)
--- NOTE | 2017-03-29 07:58 | PCM.HP ---
History of Present Illness - Chief Complaint Chief Complaint: Small bowel obstruction Date: 03/29/17 History of Present Illness: is a 81 year old female. in her normal state at [facility] where she suffers from mild to moderate alzheimers. She began vomiting recurrently yesterday am of fecal like material per the nursing staff and was sent to ED. She had NG placed with decompression last night and has been doing well except she is hungry and has a headache. She has not had a BM since arrival she is unsure if she has had flatulance. She does not recall discussing a mediastinal mass in the past. - Review of Systems Constitutional: No Fever, No Chills Eyes: No Symptoms Ears, Nose, & Throat: No Symptoms Respiratory: No Cough, No Short Of Breath Cardiac: No Chest Pain, No Edema, No Syncope Abdominal/Gastrointestinal: Vomiting, No Abdominal Pain, No Nausea, No Diarrhea Genitourinary Symptoms: No Dysuria Musculoskeletal: No Back Pain, No Neck Pain Skin: No Rash Neurological: No Dizziness, No Focal Weakness, No Sensory Changes Psychological: No Symptoms Endocrine: No Symptoms Hematologic/Lymphatic: No Symptoms Immunological/Allergic: No Symptoms Medications & Allergies Home Medications: Home Medication List Potassium Chloride 20 Meq Tab [Potassium Chloride 20 MEQ TABLET] 20 meq PO BID 10/23/14 [History Confirmed 03/28/17] Rosuvastatin Calcium [Crestor] 10 mg PO HS 10/23/14 [History Confirmed 03/28/17] Furosemide [Lasix] 40 mg PO DAILY 11/04/14 [History Confirmed 03/28/17] Magnesium Oxide 400 mg [Mag-Ox 400] 800 mg PO BID 06/03/15 [History Confirmed 03/28/17] Omeprazole 20 MG [Prilosec 20 mg] 20 mg PO BID 06/03/15 [History Confirmed 03/28] Acetaminophen 325 mg [Tylenol 325 mg] 650 mg PO Q4HPRN PRN 11/26/15 [ History Confirmed 03/28/17] Docusate Sodium 100 mg [Colace 100 MG] 1 cap PO DAILY 11/26/15 [History Confirmed 03/28/17] Lorazepam 0.5 mg [Ativan 0.5 MG] 0.25 mg PO HS 11/26/15 [History Confirmed 03/28/17] Glucagon 1 mg [GlucaGen 1 MG] 1 mg IM UD PRN 03/31/16 [History Confirmed 03/28/17] Na Phos,M-B/Na Phos,Di-Ba [Enema] 1 applic RC DAILY PRN PRN 03/31/16 [History Confirmed 03/28/17] Guaifenesin [Q-Tussin] 100 mg PO Q4HPRN PRN 10/28/16 [History Confirmed 03/28/17 ] Acetaminophen 325 mg [Tylenol 325 mg] 650 mg PO DAILY 03/28/17 [History Confirmed 03/28/17] Escitalopram Oxalate 10 mg [Lexapro 10 MG] 10 mg PO DAILY 03/28/17 [History Confirmed 03/28/17] Allergies/Adverse Reactions: Allergies Allergy/AdvReac Type Severity Reaction Status Date / Time No Known Drug Allergies Allergy Verified 03/28/17 11:13 - Past Medical History Past Medical History: Yes Neurological History: Dementia ENT History: No Pertinent History Cardiac History: High Cholesterol, Hypertension Respiratory History: No Pertinent History Endocrine Medical History: Diabetes Type II Musculoskelatal History: No Pertinent History GI Medical History: GERD, Other History: No Pertinent History Pyscho-Social History: No Pertinent History Reproductive Disorders: No Pertinent History Comment: post procedural HTN, kidney infections, bowel obstructions & paralytic ileus - Female History Hx Last Menstrual Period: N/A Are you now?: No - Past Surgical History Past Surgical History: Yes Neuro Surgical History: No Pertinent History Cardiac History: No Pertinent History Respiratory Surgery: No Pertinent History GI Surgical History: Cholecystectomy Musculskeletal Surgical Hx: No Pertinent History Female Surgical History: Hysterectomy Other Surgical History: Tonsils removed as child, son states [facility] did a stomach ulcer surgery about a year ago - Social History Smoking Status: Never smoker Exposure to second hand smoke: No Alcohol: None Drug Use: none - Physical Exam Vital Signs: Vital Signs - 24 hr Temp Pulse Resp BP Pulse Ox 03/29/17 04:10 98.4 F 101 H 18 141/71 92 L 03/29/17 00:27 99.1 F 106 H 18 136/71 91 L 03/28/17 20:39 98.5 F 106 H 19 150/69 91 L 03/28/17 15:28 98.2 F 99 H 18 152/69 94 L 03/28/17 14:49 98.2 F 99 H 18 152/69 94 L 03/28/17 14:09 100 H 20 156/79 03/28/17 14:05 94 L 03/28/17 12:50 91 H 20 163/74 03/28/17 12:18 97 H 16 137/67 98 03/28/17 11:05 98.4 F 93 H 18 140/80 94 L General Appearance: no apparent distress, alert Neurologic Exam: alert, oriented x 3, cooperative, normal mood/affect, nml cerebellar function, nml station & gait, sensation nml, No motor deficits Eye Exam: PERRL/EOMI, eyes nml inspection Ears, Nose, Throat Exam: normal ENT inspection, TMs normal, pharynx normal, moist mucous membranes Neck Exam: normal inspection, non-tender, supple, full range of motion Respiratory Exam: normal breath sounds, lungs clear, No respiratory distress Cardiovascular Exam: regular rate/rhythm, normal heart sounds, normal peripheral pulses Gastrointestinal/Abdomen Exam: soft, other (NG in place with yellow drainage), No normal bowel sounds (hypoactive), No tenderness, No mass Back Exam: normal inspection, normal range of motion, No CVA tenderness, No vertebral tenderness Extremity Exam: normal inspection, normal range of motion, pelvis stable Skin Exam: normal color, warm, dry, No rash Lymphatic Exam: No adenopathy Results - Labs Lab/Micro Results: Accuchecks Date 03/28/17 Time 22:04 Accucheck Value: 152 Accucheck Value: 187 Lab Results-Last 24 Hours 03/28/17 03/29/17 Range/Units 15:30 05:15 WBC 16.7 H (4.0-10.5) K/mm3 RBC 4.87 (4.1-5.4) M/mm3 Hgb 13.8 (12.0-16.0) gm/dl Hct 42.7 (35-47) % MCV 87.7 (78-100) fl MCH 28.3 (26-32) pg MCHC 32.3 (32-36) g/dl RDW 14.8 H (11.5-14.0) % Plt Count 273 (150-450) K/mm3 MPV 9.3 (6-9.5) fl Hemoglobin A1c 5.4 (4.5-6.2) Accuchecks Date 03/28/17 Time 22:04 Accucheck Value: 152 Accucheck Value: 187 - Radiology Impressions Radiology Exams & Impressions: Radiology Procedures Category Date Time Status ABDOMEN 2 VIEW Routine Exams 03/29/17 06:00 Ordered KUB Urgent Exams 03/28/17 20:10 Taken KUB Urgent Exams 03/28/17 21:30 Taken Assessment/Plan (1) Small bowel obstruction Current Visit: Yes Status: Acute Assessment & Plan: recurrent SBO currently NG in place she has no abdominal pain not septic stop the flagyl continue with just the zosyn with adequate coverage with just the zosyn appreciate surgery recommendations repeat labs in am Code(s): K56.69 - OTHER INTESTINAL OBSTRUCTION (2) Dementia Current Visit: No Status: Chronic Qualifiers: Dementia type: unspecified type Code(s): F03.90 - UNSPECIFIED DEMENTIA WITHOUT BEHAVIORAL DISTURBANCE (3) Mediastinal mass Current Visit: Yes Status: Acute Assessment & Plan: this was originally reported on a CT of the chest in 10/2015 it is unclear what the plan was at this time patient does not recall this discussion will get in touch with her daughter and POA about further work up vs expectant mgmt
--- NOTE | 2017-03-29 08:23 | CONS ---
CONSULT DATE: 03/28/2017 HISTORY: The patient is a rather poor historian so history is mainly taken from the chart. The patient currently denies any abdominal pain, denies any nausea or vomiting. She said she has been having bowel movements fine. She was in the retirement and had some vomiting. She apparently did fine at supper last night and had some vomiting this morning. PAST MEDICAL/SURGICAL HISTORY: Includes hypertension, hypercholesterolemia, diabetes mellitus type 2, history of reflux, History of kidney infection in the past. Poor historian. She does have right subcostal. She had cholecystectomy the past. She also has question of hysterectomy and had tonsillectomy in the past. The patient told us that she had some sort of stomach ulcer procedure at [facility] a year or so ago. HOME MEDICATIONS: Acetaminophen, potassium chloride, Crestor, Lasix, Prilosec, Tylenol, Colace, Advair, Glucagon, Fleet's enema PRN. She takes guaifenesin PRN as well as some Bystolic as well she also takes Lexapro. ALLERGIES: NKDA. REVIEW OF SYSTEMS: Twelve systems reviewed. She denies any chest pain. She denies any shortness of breath or palpitations. She denies any abdominal pain, denies nausea and vomiting. She said she had a bowel movement. She denies any bloody stools. She does have history of some dementia. Other systems negative or noncontributory as above and per preadmission questionnaire. SOCIAL HISTORY: No smoking or alcohol abuse currently. FAMILY HISTORY: Negative in regards to this specific problem but again the patient is a poor historian. PHYSICAL EXAMINATION: She is afebrile, vital signs stable on admission. Temperature 98.4F earlier. Pulse 93, blood pressure 140/80. GENERAL: No acute distress. HEENT: Sclera nonicteric. NECK: No JVD. CHEST: Equal excursion, nonlabored breathing. CVS: Regular rate and rhythm. ABDOMEN: She had some mild to moderate distention. No rebound. No guarding. No significant tenderness on my exam. She is quite soft. No peritoneal signs. EXTREMITIES: No significant edema. NEURO: Alert, moving extremities grossly symmetrically. LAB DATA AND TESTS: White blood cell count of 20,000, hemoglobin 15.4, PLT 298,000. Lipase 132, AST 15, ALT 18, total bilirubin 0.3, creatinine 1.27. CT scan showed some dilated loops of small bowel, no free air, no collections. There is stool and gas in the colon, question whether she has got a bowel obstruction. She said she has had bowel movements, question whether partial in nature. Either way given the fluid-filled loops of small bowel she definitely needs a trial NG decompression, conservative management, general surgeon management, NG decompression, IV hydration, bowel rest, follow serial labs, exams and films. At this time she is initially refusing NG decompression. She will talk it over with her son later this evening. I definitely recommend this as it may allow avoiding an operation or make operation much better results if needed. Unsure if she would warrant any surgical interventions if needed. At this time she will discuss with her son. She was explained that without NG tube should bowel continue to be distended could result in perforation, sepsis, peritonitis and poor chance of survival. She understands this. She will discuss with her son later this evening. If she is not agreeable to NG tube which she would need if she had any surgical intervention anyway and other option would be comfort measures as there would not be any goal for surgical intervention. She is not agreeing to NG decompression. She expressed understanding of this. So if she fails to agree I recommend trial of NG and likely I would sign off and continue comfort measures if she further deteriorates. At this time she will talk it over with her son to see if he is in agreement with decompression. Continue IV hydration, bowel rest, follow serial exams in the meantime as there is some report that she had some sort ulcer procedure at [facility]. I am waiting on those operative reports.
--- NOTE | 2017-03-29 08:28 | XRAY ---
Indication: NG tube placement. Limited KUB centered over the lower chest/upper abdomen demonstrates partially visualized NG tube tip midline projecting over the T7 segment presumed mid esophagus. Recommend further advancement into the stomach.
--- NOTE | 2017-03-29 08:29 | XRAY ---
Indication: NG tube placement. Comparison: Taken earlier in the day. Limited KUB centered over the lower chest/upper abdomen demonstrates interval advancement of the NG tube with the tip now in the mid to proximal stomach.
--- NOTE | 2017-03-29 09:41 | XRAY ---
Indication: Small bowel obstruction. Comparison: October 31, 2016. 2 views of the abdomen again demonstrates small bowel air-fluid leveling with paucity of distal colonic bowel gas favoring small bowel obstruction. Solid organs obscured. Osseous structures intact again with osteopenia and degenerative changes. There is now left base infiltrate/atelectasis. NG tube is slightly withdrawn with respect to KUB one day earlier with the catheter tip now barely in the stomach. Impression: 1. Small bowel obstruction as detailed. 2. Left lung base infiltrate/atelectasis. 3. NG tube tip barely in the stomach. Consider further advancement.
[2017-03-30] MEDS: Zosyn 3.375GM/100 Ml D5W 3.375 GM/100 ML IVPB IV SCH ×2 (00:08→05:38)
[2017-03-30] MEDS: Zofran 4 MG/2 ML VIAL IV PRN (02:45)
[2017-03-30 05:56] LABS: Mean Cell Volume 87.8 fl (78-100); Mean Platelet Volume 9.4 fl (6-9.5); Platelet Count 293 K/mm3 (150-450); Red Cell Distribution Width 14.9 % (11.5-14.0); White Blood Count 14.5 K/mm3 (4.0-10.5)
[2017-03-30 05:57] LABS: ANION GAP 14.7 MEQ/L (5-15); Carbon Dioxide 29.8 mEq/L (21-32)
[2017-03-30] MEDS ORDERED: Sodium Chloride 0.9% 1000 ML 1,000 ML IV STA (08:06)
--- NOTE | 2017-03-30 08:15 | PCM.NOTE ---
Date and Time: 03/30/17 08 Subjective Assessment: The patient is hungry but otherwise without complaints nursing reports she was having some epigastric discomfort with the ice chips. She has not had BM, unclear if any flatulance she thinks so. She has no chest pain or shortness of breath. Objective Exam General Appearance: no apparent distress, obese Neurologic Exam: alert, oriented x 3, cooperative Skin Exam: warm, dry Ears, Nose, Throat Exam: moist mucous membranes Neck Exam: non-tender, supple Respiratory Exam: normal breath sounds, lungs clear Cardiovascular Exam: regular rate/rhythm, normal heart sounds Gastrointestinal/Abdomen Exam: soft, No normal bowel sounds (hypoactive bowel sounds), No tenderness, No distention, No guarding Extremity Exam: normal inspection, No calf tenderness OBJECTIVE DATA Vital Signs: Vital Signs - 24 hr Temp Pulse Resp BP Pulse Ox 03/30/17 04:02 98.9 F 98 H 18 143/76 92 L 03/30/17 00:28 97.9 F 90 19 161/78 92 L 03/29/17 19:48 98.5 F 84 19 175/77 91 L 03/29/17 11:45 97.6 F 82 18 127/71 92 L Pain Assessment - Last Documented Pain Intensity 0 Pain Scale Used FLACC Intake and Output: Intake & Output 03/27/17 03/28/17 03/29/17 03/30/17 11:59 11:59 11:59 11:59 Intake Total 120 120 Output Total 2100 1900 Balance -1979 -178 Weight 86.727 kg 86.455 kg Lab Results: Accuchecks Date 03/30/17 Date 03/29/17 Date 03/29/17 Date 03/29/17 Time 07:29 Time 22:00 Time 16:30 Time 11:30 Accucheck Value: 146 Accucheck Value: 128 Accucheck Value: 123 Accucheck Value: 138 Lab Results-Last 24 Hours 03/30/17 03/30/17 Range/Units 05:10 05:10 WBC 14.5 H (4.0-10.5) K/mm3 RBC 5.10 (4.1-5.4) M/mm3 Hgb 14.3 (12.0-16.0) gm/dl Hct 44.8 (35-47) % MCV 87.8 (78-100) fl MCH 28.0 (26-32) pg MCHC 31.9 L (32-36) g/dl RDW 14.9 H (11.5-14.0) % Plt Count 293 (150-450) K/mm3 MPV 9.4 (6-9.5) fl Sodium 140 (136-145) mEq/L Potassium 4.0 (3.5-5.1) mEq/L Chloride 99 (98-107) mEq/L Carbon Dioxide 29.8 (21-32) mEq/L Anion Gap 14.7 (5-15) MEQ/L BUN 59 H (9-20) mg/dL Creatinine 2.26 H (0.55-1.30) mg/dl Estimated GFR 22 ML/MIN Glucose 146 H (70-110) MG/DL Calcium 9.2 (8.5-10.1) mg/dL Radiology Exams: Radiology Procedures Category Date Time Status ABDOMEN 2 VIEW Routine Exams 03/29/17 06:00 Completed KUB Urgent Exams 03/28/17 20:10 Completed KUB Urgent Exams 03/28/17 21:30 Completed Assessment/Plan (1) Small bowel obstruction Current Visit: Yes Status: Resolved Assessment & Plan: very hypoactive bowel sounds and no bm still with some NG output surgery following Her I/0 only reports 120 mL in over last 24h. She had NaCl ordered at 75mL/h it appears this was turned off at some point and possibly restarted at about 04:00 today, subsequently she has significant fluid deficit and acute kidney injury from the dehydration. Will Give 1L bolus increase rate to 100mL/h repeat labs in am monitor NG output she has soft abdomen afebrile and no other evidence of infection given edmar will hold the zosyn now and change to less nephrotoxic rocephin with the + urine culture for gram neg rods pending ID and sensitivity Code(s): K56.69 - OTHER INTESTINAL OBSTRUCTION (2) Dementia Current Visit: No Status: Chronic Qualifiers: Dementia type: unspecified type Code(s): F03.90 - UNSPECIFIED DEMENTIA WITHOUT BEHAVIORAL DISTURBANCE (3) Mediastinal mass Current Visit: Yes Status: Acute Assessment & Plan: on clinical improvement will need to further discuss with family was seen on CT 10/2015 but no follow up appears to be found in medical history she has no symptoms associated with this currently
[2017-03-30] MEDS: ROCEPHIN 1 Gm-D5w 50 ml Bag** 1 G/50 ML IVPB IV SCH (11:19)
[2017-03-30] MEDS: Sodium Chloride 0.9% W/ 20 mEq KCl/LITER 1,000 ML IV SCH ×2 (11:19→22:30)
[2017-03-30] MEDS: PROTONIX 40 MG IV IV SCH (11:19)
[2017-03-31 08:19] LABS: BASOPHIL % 0.5 % (0.0-0.4); Eosinophil % 0.4 % (0.00-5.0); Lymphocytes % 15.5 % (24.0-44.0); Mean Cell Volume 90.4 fl (78-100); Mean Corpuscular Hemoglobin 28.3 pg (26-32); Mean Platelet Volume 9.7 fl (6-9.5); Monocytes % 6.6 % (0.0-12.0); Platelet Count 235 K/mm3 (150-450); Red Blood Count 4.81 M/mm3 (4.1-5.4); Red Cell Distribution Width 14.5 % (11.5-14.0)
[2017-03-31] MEDS: Sodium Chloride 0.9% W/ 20 mEq KCl/LITER 1,000 ML IV SCH (08:35)
[2017-03-31] MEDS: PROTONIX 40 MG IV IV SCH (08:35)
[2017-03-31] MEDS: ROCEPHIN 1 Gm-D5w 50 ml Bag** 1 G/50 ML IVPB IV SCH (08:35)
[2017-03-31 12:32] LABS: ANION GAP 16.5 MEQ/L (5-15); Carbon Dioxide 27.4 mEq/L (21-32); Potassium 4.1 mEq/L (3.5-5.1)
--- NOTE | 2017-03-31 18:05 | PCM.NOTE ---
Date and Time: 03/31/17 1758 Subjective Assessment: This am she continued to feel well and was persitent in wanting to eat. She had no abdominal pain as she has not since arrival. She wanted to go back to [facility]. She was till having large amounts of NG output. At 13:00 she pulled her NG (or it became dislodged) she was demanding to be able to eat she was passing gas and had bowel sounds since last night. She was given clear liquids and tolerated well and then she pulled out her IV this evening. She continues to not have abdominal pain. Objective Exam General Appearance: no apparent distress, alert, obese Neurologic Exam: alert, cooperative, normal mood/affect, nml cerebellar function , sensation nml, No motor deficits Skin Exam: normal color, warm, dry Eye Exam: PERRL, EOMI, eyes nml inspection Ears, Nose, Throat Exam: normal ENT inspection, pharynx normal, moist mucous membranes Neck Exam: normal inspection, non-tender, supple, full range of motion Respiratory Exam: normal breath sounds, lungs clear, No respiratory distress Cardiovascular Exam: regular rate/rhythm, normal heart sounds Gastrointestinal/Abdomen Exam: soft, No tenderness, No mass Extremity Exam: normal inspection, normal range of motion Back Exam: normal inspection, normal range of motion, No CVA tenderness, No vertebral tenderness Pelvic Exam: deferred Rectal Exam: deferred OBJECTIVE DATA Vital Signs: Vital Signs - 24 hr Temp Pulse Resp BP Pulse Ox 03/31/17 11:52 98.2 F 62 19 139/61 93 L 03/31/17 04:07 98.2 F 92 H 18 190/82 96 03/31/17 00:18 98.1 F 85 19 185/85 94 L 03/30/17 20:00 97.9 F 81 18 142/70 91 L Pain Assessment - Last Documented Pain Intensity 0 Pain Scale Used 0-10 Pain Scale Intake and Output: Intake & Output 03/29/17 03/30/17 03/31/17 04/01/17 11:59 11:59 11:59 11:59 Intake Total 674 325 7158 Output Total 2100 1900 2450 Balance -1980 -1780 -172 Weight 86.727 kg 86.455 kg 90.855 kg 86.455 kg Lab Results: Accuchecks Date 03/30/17 Time 22:00 Accucheck Value: 79 Accucheck Value: 87 Accucheck Value: 89 Accucheck Value: 95 Lab Results-Last 24 Hours 03/31/17 03/31/17 Range/Units 08:12 08:12 WBC 11.0 H (4.0-10.5) K/mm3 RBC 4.81 (4.1-5.4) M/mm3 Hgb 13.6 (12.0-16.0) gm/dl Hct 43.5 (35-47) % MCV 90.4 (78-100) fl MCH 28.3 (26-32) pg MCHC 31.3 L (32-36) g/dl RDW 14.5 H (11.5-14.0) % Plt Count 235 (150-450) K/mm3 MPV 9.7 H (6-9.5) fl Gran % 77.0 H (36.0-66.0) % Lymphocytes % 15.5 L (24.0-44.0) % Monocytes % 6.6 (0.0-12.0) % Eosinophils % 0.4 (0.00-5.0) % Basophils % 0.5 (0.0-0.4) % Basophils # 0.05 (0-0.4) Sodium 143 (136-145) mEq/L Potassium 4.1 (3.5-5.1) mEq/L Chloride 103 (98-107) mEq/L Carbon Dioxide 27.4 (21-32) mEq/L Anion Gap 16.5 H (5-15) MEQ/L BUN 41 H (9-20) mg/dL Creatinine 1.15 (0.55-1.30) mg/dl Estimated GFR 48 ML/MIN Glucose 101 (70-110) MG/DL Calcium 9.1 (8.5-10.1) mg/dL Radiology Exams: Radiology Procedures Category Date Time Status UGI W/SMALL BOWEL FOLLOW THRU Urgent Exams 04/04/17 Ordered Multi-Disciplinary Progress Notes: Multi-Disciplinary Progress Notes 03/31/17 08:50 (created 03/31/17 13:42) Case Management Note by Susan Rodriguez FAMILY CONTINUE TO PLAN FOR PT TO RETURN TO [facility] ON DISCHARGE. PT REPORTS FEELING BETTER. HOPING FOR N/G TUBE TO BE REMOVED TODAY. DENIES ADDNL NEEDS AT PRESENT. WILL FOLLOW. Initialized on 03/31/17 13:42 - END OF NOTE Assessment/Plan (1) Small bowel obstruction Current Visit: Yes Status: Resolved Assessment & Plan: normal bowel sounds today passing gas she has self d/c her NG at noon and then after demanding to eat for all afternoon she was given trial of clears and after this she pulled out her IV. Surgery is following van balbuena she was to have small bowel follow through but can't have until Monday. She wants to go back to [facility]' She has recurrent partial SBO and typically resolve in a couple days if stable and tolerating po tomorrow we could go back to [facility] with small bowel follow through as an outpatient Code(s): K56.69 - OTHER INTESTINAL OBSTRUCTION (2) Dementia Current Visit: Yes Status: Chronic Qualifiers: Dementia type: unspecified type Assessment & Plan: mild she usually feeds herself does her own activities, she is wheechair bound. she does well with her day to day tasks at [facility] as well Code(s): F03.90 - UNSPECIFIED DEMENTIA WITHOUT BEHAVIORAL DISTURBANCE (3) Mediastinal mass Current Visit: Yes Status: Acute Assessment & Plan: we discussed this in detail today from the CT of the chest in 10/2015 without follow up she stated she did not want any evaluation of this at this time she wants to go home to [facility] and does not want to have any work up or recheck on this mass until she gets better and is eating again. she is asymptomatic it was found incidentally in 2016 and she is unaware of any and no evidence of any f/u on it in the medical records. we discussed possible complications of not diagnosing properly such as invasion of a mass into the heart or lungs blocking the blood supply causing pain bleeding or and she says she understands but is doing well now and doesn' t want it done now. will f/u as outpatient and contact her brother as well
[2017-04-01 07:23] VITALS: BP 138/80; PULSE 86; O2SAT 95
[2017-04-01] MEDS: ROCEPHIN 1 Gm-D5w 50 ml Bag** 1 G/50 ML IVPB IV SCH (08:10)
[2017-04-01] MEDS: PROTONIX 40 MG IV IV SCH (08:11)
--- NOTE | 2017-04-01 13:53 | PCM.DS ---
Discharge Summary Date of Admission: 03/28/17 14:31 Admitting Physician: DREW MCDONALD Consults: Consults on Case 03/28/17 16:05 Consult Surgery ROUTINE Primary Care Provider: DREW MCDONALD Allergies Allergies No Known Drug Allergies Allergy (Verified 03/28/17 11:13) Hospital Summary - Hospital Course Hospital Course: Pt of Dr. Debbie Mcdonald admitted from [facility] with SBO. Surgery was consulted and pt had NG tube which she then self d/c'd. She has been tolerating CLD since then , ate 100% today with no issues. she also had a small bowel movement this morning (all confirmed by nurse and [employer]PACK[employer] MANAGER). She will be transferred back to [facility], with possible small bowel follow through as outpatient. - Vitals & Intake/Output Vital Signs: Vital Signs Temperature 97.6 F 04/01/17 07:22 Pulse Rate 86 04/01/17 07:22 Respiratory Rate 20 04/01/17 07:22 Blood Pressure 138/80 04/01/17 07:22 O2 Sat by Pulse Oximetry 95 04/01/17 07:22 Intake & Output: Intake & Output 03/30/17 03/31/17 04/01/17 04/02/17 11:59 11:59 11:59 11:59 Intake Total 120 2278 860 Output Total 1900 2450 900 Balance -1780 -172 -40 Weight 86.455 kg 90.855 kg 86.545 kg - Lab Result Diagrams: 03/31/17 08:12 03/31/17 08:12 Lab Results-Last 24 Hrs: Accuchecks Date 04/01/17 Date 04/01/17 Date 03/31/17 Time 11:30 Time 07:30 Time 22:00 Accucheck Value: 101 Accucheck Value: 108 Accucheck Value: 84 Accucheck Value: 79 Micro Results-Entire Visit: Accuchecks Date 04/01/17 Date 04/01/17 Date 03/31/17 Time 11:30 Time 07:30 Time 22:00 Accucheck Value: 101 Accucheck Value: 108 Accucheck Value: 84 Accucheck Value: 79 - Radiology Exams Ordered Rad Exams-Entire Visit: Radiology Procedures Category Date Time Status UGI W/SMALL BOWEL FOLLOW THRU Urgent Exams 04/04/17 Ordered - Procedures and Test Procedures and Tests throughout Hospitalization: Therapy Orders & Screens 03/28/17 17:07 ST Screen per Nursing Assess once Comment: Protocol Order Physician Instructions: Greater than [address] Admission Screening Reason For Exam: Triggered on Admission Diagnosis: Small bowel obstruction CVA/Dyshpagia/Aphasia: No Cognitive Deficits: Yes Dehydration/Nutrition Deficit: No Reflux: Yes Oral-Motor Difficulties: No Pneumonia: No Halfway Resident: Yes Total Points: 11 Discharge Exam General Appearance: no apparent distress Neurologic Exam: alert, cooperative Skin Exam: normal color, warm, dry Eye Exam: eyes nml inspection Respiratory Exam: normal breath sounds, lungs clear, No crackles/rales, No rhonchi, No wheezing Cardiovascular Exam: regular rate/rhythm, normal heart sounds, No murmur Gastrointestinal/Abdomen Exam: soft, normal bowel sounds, No tenderness, No distention, No mass, No guarding, No rebound Extremity Exam: No swelling, No tenderness Final Diagnosis/Problem List - Final Discharge Diagnosis/Problem (1) Small bowel obstruction Current Visit: Yes Status: Acute Assessment & Plan: Appears to have resolved. Would advance her diet slowly, would do full liquids x 1 day then bland diet for 2-3 days then back to her normal diet. (2) Mediastinal mass Current Visit: Yes Status: Acute Assessment & Plan: Dr. Mcdonald discussed with pt at length per his notes, he will discuss any workup outpatient. (3) Dementia Current Visit: Yes Status: Chronic (4) Diabetes mellitus Current Visit: No Status: Chronic Assessment & Plan: [phone] here. Back to [facility] on home meds. - Discharge Disposition: Skilled Care @ [facility] Condition: Stable Prescriptions: Continue Rosuvastatin Calcium [Crestor] 10 mg PO HS Potassium Chloride 20 Meq Tab [Potassium Chloride 20 MEQ TABLET] 20 meq PO BID Furosemide [Lasix] 40 mg PO DAILY Omeprazole 20 MG [Prilosec 20 mg] 20 mg PO BID Magnesium Oxide 400 mg [Mag-Ox 400] 800 mg PO BID Lorazepam 0.5 mg [Ativan 0.5 MG] 0.25 mg PO HS Docusate Sodium 100 mg [Colace 100 MG] 1 cap PO DAILY Acetaminophen 325 mg [Tylenol 325 mg] 650 mg PO Q4HPRN PRN PRN Reason: Pain And/Or Fever Glucagon 1 mg [GlucaGen 1 MG] 1 mg IM UD PRN PRN Reason: Hypoglycemia Na Phos,M-B/Na Phos,Di-Ba [Enema] 1 applic RC DAILY PRN PRN PRN Reason: Constipation Guaifenesin [Q-Tussin] 100 mg PO Q4HPRN PRN PRN Reason: Cough Escitalopram Oxalate 10 mg [Lexapro 10 MG] 10 mg PO DAILY Acetaminophen 325 mg [Tylenol 325 mg] 650 mg PO DAILY Follow up with: DREW MCDONALD [Primary Care Provider] - 1 Week Forms: Patient Portal Information
== END 2017-04-01 14:15 | DRG 388 ==
LOC: ED 11:04 → MED SURG 14:31
PROVIDERS: ADMIT Family Medicine; ATTEND Family Medicine
DX: K56.60 Unspecified intestinal obstruction (principal); J98.59 Other diseases of mediastinum, not elsewhere classified; F03.90 Unspecified dementia, unspecified severity, without behavioral disturbance, psychotic disturbance, mood disturbance, and anxiety; E11.9 Type 2 diabetes mellitus without complications; Z79.4 Long term (current) use of insulin; I10 Essential (primary) hypertension; K21.9 Gastro-esophageal reflux disease without esophagitis
CPT/HCPCS: 36000; 36415; 71010; 74000; 74020; 74176; 80048; 80053; 81002; 82962; 83036; 83605; 83690; 85025; 85027; 85610; 87040; 87077; 87086; 87186; 96360; 96361; 96374; 96375; 99285; J0696; J2405; J2543; P9612

== ENCOUNTER 2017-04-29 04:51 | Inpatient (IN) | payer MEDICARE ==
[2017-04-29] MEDS ORDERED: Zofran 4 MG/2 ML VIAL IV ONE (05:11)
[2017-04-29] MEDS ORDERED: Sodium Chloride 0.9% 1000 ML 1,000 ML IV STA (05:11)
[2017-04-29] MEDS ORDERED: Pepcid 20 MG VIAL IV ONE ×2 (05:11→05:50)
--- NOTE | 2017-04-29 05:38 | ERPHSYRPT ---
- History of Present Illness Time Seen by Provider: 04/29/17 05:35 Historian: patient, EMS Exam Limitations: no limitations Patient Subjective Stated Complaint: pt states she was fine ate supper and then this am she vomted undigested food times 2 no pain no diarrhea no fever staff at [facility] worried about a bowel obstruction which pt has had before Triage Nursing Assessment: pt is awake and alert and able to answer questions states she feels fine on arr Physician History: pt states she was fine ate supper and then this am she vomited undigested food X 2 no pain no diarrhea no fever staff at [facility] worried about a bowel obstruction which patient has had before. no abdominal distension Timing/Duration: today Activities at Onset: none Severity of Pain-Max: none Severity of Pain-Current: none Modifying Factors: Improves With: nothing Associated Symptoms: nausea, vomiting Previous symptoms: same symptoms as today (of bowel obstruction) Allergies/Adverse Reactions: No Known Drug Allergies Allergy (Verified 04/29/17 05:25) Home Medications: Potassium Chloride 20 Meq Tab [Potassium Chloride 20 MEQ TABLET] 20 meq PO BID 10/23/14 [History] Rosuvastatin Calcium [Crestor] 10 mg PO HS 10/23/14 [History] Furosemide [Lasix] 40 mg PO DAILY 11/04/14 [History] Magnesium Oxide 400 mg [Mag-Ox 400] 800 mg PO BID 06/03/15 [History] Omeprazole 20 MG [Prilosec 20 mg] 20 mg PO BID 06/03/15 [History] Acetaminophen 325 mg [Tylenol 325 mg] 650 mg PO Q4HPRN PRN 11/26/15 [ History] Docusate Sodium 100 mg [Colace 100 MG] 1 cap PO DAILY 11/26/15 [History] Lorazepam 0.5 mg [Ativan 0.5 MG] 0.25 mg PO HS 11/26/15 [History] Glucagon 1 mg [GlucaGen 1 MG] 1 mg IM UD PRN 03/31/16 [History] Sodium Phosphate,[place]-Dibasic [Enema] 1 applic RC DAILY PRN PRN 03/31/16 [ History] Guaifenesin [Q-Tussin] 100 mg PO Q4HPRN PRN 10/28/16 [History] Acetaminophen 325 mg [Tylenol 325 mg] 650 mg PO DAILY 03/28/17 [History] Escitalopram Oxalate 10 mg [Lexapro 10 MG] 10 mg PO DAILY 03/28/17 [History] Hx Tetanus, Diphtheria Vaccination/Date Given: Yes (unknown) Hx Influenza Vaccination/Date Given: Yes Hx Pneumococcal Vaccination/Date Given: Yes - Review of Systems Constitutional: No Fever, No Chills Eyes: No Symptoms Ears, Nose, & Throat: No Symptoms Respiratory: No Cough, No Dyspnea Cardiac: No Chest Pain, No Edema, No Syncope Abdominal/Gastrointestinal: Nausea, Vomiting, No Abdominal Pain, No Diarrhea Genitourinary Symptoms: No Dysuria Musculoskeletal: No Back Pain, No Neck Pain Skin: No Rash Neurological: No Dizziness, No Focal Weakness, No Sensory Changes Psychological: No Symptoms Endocrine: No Symptoms All Other Systems: Reviewed and Negative - Past Medical History Pertinent Past Medical History: Yes Neurological History: Dementia ENT History: No Pertinent History Cardiac History: High Cholesterol, Hypertension Respiratory History: No Pertinent History Endocrine Medical History: Diabetes Type II Musculoskeletal History: No Pertinent History GI Medical History: GERD, Other History: No Pertinent History Psycho-Social History: No Pertinent History Female Reproductive Disorders: No Pertinent History Other Medical History: post procedural HTN, kidney infections, bowel obstructions & paralytic ileus - Past Surgical History Past Surgical History: Yes Neuro Surgical History: No Pertinent History Cardiac: No Pertinent History Respiratory: No Pertinent History Gastrointestinal: Cholecystectomy Musculoskeletal: No Pertinent History Female Surgical History: Hysterectomy Other Surgical History: Tonsils removed as child, son [facility] did a stomach ulcer surgery about a year ago - Social History Smoking Status: Never smoker Exposure to second hand smoke: No Drug Use: none Patient Lives Alone: No - Female History Hx Last Menstrual Period: na - Nursing Vital Signs Nursing Vital Signs: Initial Vital Signs Temperature 98 F 04/29/17 05:00 Pulse Rate 96 H 04/29/17 05:00 Respiratory Rate 16 04/29/17 05:00 Blood Pressure 143/94 04/29/17 05:00 O2 Sat by Pulse Oximetry 95 04/29/17 05:00 Pain Scale Pain Intensity 0 - Physical Exam General Appearance: no apparent distress, alert Eye Exam: PERRL/EOMI, eyes nml inspection Ears, Nose, Throat Exam: normal ENT inspection, pharynx normal, moist mucous membranes Neck Exam: normal inspection, non-tender, supple, full range of motion Respiratory Exam: normal breath sounds, lungs clear, No respiratory distress Cardiovascular Exam: regular rate/rhythm, normal heart sounds Gastrointestinal/Abdomen Exam: soft, No tenderness, No mass Back Exam: normal inspection, normal range of motion, No CVA tenderness, No vertebral tenderness Extremity Exam: normal inspection, normal range of motion, pelvis stable Neurologic Exam: alert, oriented x 3, cooperative, normal mood/affect, nml cerebellar function, sensation nml, No motor deficits Skin Exam: normal color, warm, dry SpO2: 95 Oxygen Delivery: Room Air - Course Nursing assessment & vital signs reviewed: Yes - CT Exams Abdomen/Pelvis CT Interpretation: Tele-radiologist Report Ordered Tests: Active Orders 24 hr Category Date Time Status ABDOMEN AND PELVIS W/0 CONTRAS [CT] Stat Exams 04/29/17 05:12 Taken AMYLASE Stat Lab 04/29/17 05:55 Completed CBC W DIFF Stat Lab 04/29/17 05:55 Completed CMP Stat Lab 04/29/17 05:55 Completed LIPASE Stat Lab 04/29/17 05:55 Completed Lactic Acid Stat Lab 04/29/17 05:55 Completed Manual Differential NC Stat Lab 04/29/17 05:55 Completed TROPONIN Stat Lab 04/29/17 05:55 Completed UA W/ MICROSCOPIC Stat Lab 04/29/17 05:40 Results Transfer Order Routine Transfer 04/29/17 Ordered Medication Summary Generic Name Dose Route Start Last Admin Trade Name Freq PRN Reason Stop Dose Admin Ceftriaxone Sodium/Dextrose 1 g in 50 mls @ 100 mls/hr 04/29/17 06:22 Rocephin 1 Gm-D5w 50 Ml Bag IV 04/29/17 06:51 STAT STA Discontinued Medications Generic Name Dose Route Start Last Admin Trade Name Freq PRN Reason Stop Dose Admin Famotidine 20 mg 04/29/17 05:11 04/29/17 05:52 Pepcid 20 Mg Vial IV 04/29/17 05:12 20 mg STAT ONE Administration Famotidine Confirm 04/29/17 05:50 Pepcid 20 Mg Vial Administered 04/29/17 05:51 Dose 20 mg IV .STK-MED ONE Sodium Chloride 1,000 mls @ 999 mls/hr 04/29/17 05:11 04/29/17 05:51 Sodium Chloride 0.9% 1000 Ml IV 04/29/17 06:11 999 mls/hr .Q1H1M STA Administration Sodium Chloride Confirm 04/29/17 05:50 Sodium Chloride 0.9% 1000 Ml Administered 04/29/17 05:51 Dose 1,000 mls @ ud .ROUTE .STK-MED ONE Ceftriaxone Sodium/Dextrose Confirm 04/29/17 06:30 Rocephin 1 Gm-D5w 50 Ml Bag Administered 04/29/17 06:31 Dose 1 g in 50 mls @ ud IV .STK-MED ONE Ondansetron HCl 4 mg 04/29/17 05:11 04/29/17 05:52 Zofran 4 Mg/2 Ml Vial IV 04/29/17 05:12 4 mg STAT ONE Administration Ondansetron HCl Confirm 04/29/17 05:49 Zofran 4 Mg/2 Ml Vial Administered 04/29/17 05:50 Dose 4 mg .ROUTE .STK-MED ONE Lab/Rad Data: Laboratory Result Diagrams 04/29/17 05:55 04/29/17 05:55 Laboratory Results 04/29/17 04/29/17 04/29/17 Range/Units 05:55 05:55 05:55 WBC (4.0-10.5) K/mm3 RBC (4.1-5.4) M/mm3 Hgb (12.0-16.0) gm/dl Hct (35-47) % MCV (78-100) fl MCH (26-32) pg MCHC (32-36) g/dl RDW (11.5-14.0) % Plt Count (150-450) K/mm3 MPV (6-9.5) fl Sodium 141 (136-145) mEq/L Potassium 4.3 (3.5-5.1) mEq/L Chloride 101 (98-107) mEq/L Carbon Dioxide 27.4 (21-32) mEq/L Anion Gap 16.6 H (5-15) MEQ/L BUN 26 H (9-20) mg/dL Creatinine 1.20 (0.55-1.30) mg/dl Estimated GFR 46 ML/MIN Glucose 185 H (70-110) MG/DL Lactic Acid 1.7 (0.4-2.0) Calcium 10.6 H (8.5-10.1) mg/dL Total Bilirubin 0.30 (0.2-1.0) mg/dL AST 15 (15-37) U/L ALT 13 (12-78) U/L Alkaline Phosphatase 110 (46-116) U/L Troponin I < 0.017 (0.000-0.056) ng/ml Serum Total Protein 8.2 (6.4-8.2) gm/dL Albumin 4.5 (3.4-5.0) g/dL Amylase 71 (25-115) U/L Lipase 145 (73-393) U/L Ur Collection Type Urine Color Urine Appearance Urine pH Ur Specific [place] Urine Protein Urine Ketones Urine Blood Urine Nitrite Urine Bilirubin Urine Urobilinogen Ur Leukocyte Esterase Urine Glucose Specimen Received 04/29/17 04/29/17 Range/Units 05:55 05:40 WBC 16.4 H (4.0-10.5) K/mm3 RBC 5.38 (4.1-5.4) M/mm3 Hgb 15.1 (12.0-16.0) gm/dl Hct 47.5 H (35-47) % MCV 88.3 (78-100) fl MCH 28.1 (26-32) pg MCHC 31.8 L (32-36) g/dl RDW 15.2 H (11.5-14.0) % Plt Count 242 (150-450) K/mm3 MPV 9.9 H (6-9.5) fl Sodium (136-145) mEq/L Potassium (3.5-5.1) mEq/L Chloride (98-107) mEq/L Carbon Dioxide (21-32) mEq/L Anion Gap (5-15) MEQ/L BUN (9-20) mg/dL Creatinine (0.55-1.30) mg/dl Estimated GFR ML/MIN Glucose (70-110) MG/DL Lactic Acid (0.4-2.0) Calcium (8.5-10.1) mg/dL Total Bilirubin (0.2-1.0) mg/dL AST (15-37) U/L ALT (12-78) U/L Alkaline Phosphatase (46-116) U/L Troponin I (0.000-0.056) ng/ml Serum Total Protein (6.4-8.2) gm/dL Albumin (3.4-5.0) g/dL Amylase (25-115) U/L Lipase (73-393) U/L Ur Collection Type Pending Urine Color Pending Urine Appearance Pending Urine pH Pending Ur Specific [place] Pending Urine Protein Pending Urine Ketones Pending Urine Blood Pending Urine Nitrite Pending Urine Bilirubin Pending Urine Urobilinogen Pending Ur Leukocyte Esterase Pending Urine Glucose Pending Specimen Received Pending - Progress Progress: improved, re-examined (normal GI exam) Counseled pt/family regarding: lab results, diagnosis, need for follow-up, rad results - Departure Time of Disposition: 06:32 Departure Disposition: Observation Clinical Impression: Small bowel obstruction Condition: Stable Critical Care Time: Yes Critical Care Time(excluding separately billable procedures): 30-74 minutes Referrals: DREW MCDNOALD [Primary Care Provider] -
[2017-04-29] MEDS ORDERED: Zofran 4 MG/2 ML VIAL ONE (05:49)
[2017-04-29] MEDS ORDERED: Sodium Chloride 0.9% 1000 ML 1,000 ML ONE (05:50)
[2017-04-29 06:02] LABS: Mean Cell Volume 88.3 fl (78-100); Mean Corpuscular Hemoglobin 28.1 pg (26-32); Mean Platelet Volume 9.9 fl (6-9.5); Platelet Count 242 K/mm3 (150-450); Red Blood Count 5.38 M/mm3 (4.1-5.4); Red Cell Distribution Width 15.2 % (11.5-14.0); White Blood Count 16.4 K/mm3 (4.0-10.5)
[2017-04-29 06:14] LABS: Collection Type VOID
[2017-04-29 06:15] LABS: Bilirubin NEGATIVE (NEGATIVE); Glucose NEGATIVE (NEGATIVE); Leukocyte Esterase TRACE (NEGATIVE)
[2017-04-29 06:18] LABS: Blood 250 Ery/ul (0-5); COMPLETE URINE MICROSCOPIC? YES
[2017-04-29] MEDS ORDERED: ROCEPHIN 1 Gm-D5w 50 ml Bag** 1 G/50 ML IVPB IV STA (06:22)
[2017-04-29 06:29] LABS: ALBUMIN 4.5 g/dL (3.4-5.0); ANION GAP 16.6 MEQ/L (5-15); BILIRUBIN,TOTAL 0.3 mg/dL (0.2-1.0); Carbon Dioxide 27.4 mEq/L (21-32); Potassium 4.3 mEq/L (3.5-5.1); Total Protein 8.2 gm/dL (6.4-8.2)
[2017-04-29] MEDS ORDERED: ROCEPHIN 1 Gm-D5w 50 ml Bag** 1 G/50 ML IVPB IV ONE (06:30)
[2017-04-29 06:34] LABS: ADD URINE CULTURE? YES (NO); Bacteria FEW /HPF (NEGATIVE); Epithelial Cells MODERATE /HPF (FEW); WBC 0-2 /HPF (0-5)
[2017-04-29 07:00] LABS: BAND 2 % (0.0-2.0); Basophil 1 % (0.0-1.0); Eosinophil 1 % (0.00-3.0); Platelet Estimate NORMAL (NORMAL); Total Cells Counted 100
[2017-04-29] MEDS ORDERED: Phenergan 25 MG INJ ONE (07:30)
[2017-04-29] MEDS ORDERED: Zofran 4 MG/2 ML VIAL IV PRN (07:32)
[2017-04-29] MEDS ORDERED: Phenergan 25 MG INJ IV PRN (07:32)
[2017-04-29] MEDS ORDERED: ROCEPHIN 1 Gm-D5w 50 ml Bag** 1 G/50 ML IVPB IV SCH (10:00)
[2017-04-29] MEDS: Sodium Chloride 0.9% W/ 20 mEq KCl/LITER 1,000 ML IV SCH (10:20)
--- NOTE | 2017-04-29 11:22 | PCM.HP ---
History of Present Illness - Chief Complaint Chief Complaint: small bowel obstruction History of Present Illness: is a 81 year old female pt of Dr. Jere Lovelace from [facility] who came to ER last night after vomiting undigested food. She has a history of SBO , was here within the past few months with an NG placed. She gradually resolved and was sent back to [facility]. She is refusing the NG tube at this time. She tells me this morning she feels "fine" that nothing has been painful. She says she continues to have bowel movements. She is oriented to place. Knows it is March, thought it was "Monday or Monday" (today is Monday) and for the year she responded, "1996... but I know that's not right." - Review of Systems Abdominal/Gastrointestinal: Vomiting All Other Systems: Reviewed and Negative (however, pt with some disorientation) Medications & Allergies Home Medications: Home Medication List Potassium Chloride 20 Meq Tab [Potassium Chloride 20 MEQ TABLET] 20 meq PO BID 10/23/14 [History Confirmed 04/29/17] Rosuvastatin Calcium [Crestor] 10 mg PO HS 10/23/14 [History Confirmed 04/29/17] Furosemide [Lasix] 40 mg PO DAILY 11/04/14 [History Confirmed 04/29/17] Magnesium Oxide 400 mg [Mag-Ox 400] 800 mg PO BID 06/03/15 [History Confirmed 04/29/17] Omeprazole 20 MG [Prilosec 20 mg] 20 mg PO BID 06/03/15 [History Confirmed 04/29] Acetaminophen 325 mg [Tylenol 325 mg] 650 mg PO DAILY 11/26/15 [History Confirmed 04/29/17] Docusate Sodium 100 mg [Colace 100 MG] 1 cap PO DAILY 11/26/15 [History Confirmed 04/29/17] Glucagon 1 mg [GlucaGen 1 MG] 1 mg IM UD PRN 03/31/16 [History Confirmed 04/29/17] Guaifenesin [Q-Tussin] 100 mg PO Q4HPRN PRN 10/28/16 [History Confirmed 04/29/17 ] Acetaminophen 325 mg [Tylenol 325 mg] 650 mg PO HS 03/28/17 [History Confirmed 04/29/17] Atorvastatin Calcium 20 mg PO HS 04/29/17 [History Confirmed 04/29/17] Allergies/Adverse Reactions: Allergies Allergy/AdvReac Type Severity Reaction Status Date / Time No Known Drug Allergies Allergy Verified 04/29/17 05:25 - Past Medical History Past Medical History: Yes Neurological History: Dementia ENT History: No Pertinent History Cardiac History: High Cholesterol, Hypertension Respiratory History: No Pertinent History Endocrine Medical History: Diabetes Type II Musculoskelatal History: No Pertinent History GI Medical History: GERD, Other History: No Pertinent History Pyscho-Social History: No Pertinent History Reproductive Disorders: No Pertinent History Comment: post procedural HTN, kidney infections, bowel obstructions & paralytic ileus - Female History Hx Last Menstrual Period: na - Past Surgical History Past Surgical History: Yes Neuro Surgical History: No Pertinent History Cardiac History: No Pertinent History Respiratory Surgery: No Pertinent History GI Surgical History: Cholecystectomy Musculskeletal Surgical Hx: No Pertinent History Female Surgical History: Hysterectomy Other Surgical History: Tonsils removed as child, [facility] did a stomach ulcer surgery about a year ago - Social History Smoking Status: Never smoker Exposure to second hand smoke: No Alcohol: None Drug Use: none - Physical Exam Vital Signs: Vital Signs - 24 hr Temp Pulse Resp BP Pulse Ox 04/29/17 07:46 98 F 86 20 180/95 96 04/29/17 07:36 98 F 86 20 180/95 95 General Appearance: no apparent distress, alert Neurologic Exam: cooperative, other (oriented to place, only partially oriented to time) Eye Exam: eyes nml inspection Neck Exam: normal inspection Respiratory Exam: normal breath sounds, lungs clear, No crackles/rales, No rhonchi, No wheezing Cardiovascular Exam: regular rate/rhythm, normal heart sounds, No murmur Gastrointestinal/Abdomen Exam: soft, distention, other (bowel sounds hypoactive) , No tenderness, No mass, No guarding, No rebound Back Exam: normal inspection Extremity Exam: No pedal edema, No swelling Skin Exam: normal color, warm, dry Results - Labs Lab/Micro Results: Accuchecks Date 04/29/17 Time 11:02 Accucheck Value: 141 Accuchecks Date 04/29/17 Time 11:02 Accucheck Value: 141 Assessment/Plan (1) Small bowel obstruction Current Visit: Yes Status: Acute Assessment & Plan: With leukocytosis. changed IV rocephin to zosyn. She is refusing NG tube. Surgery has been consulted, thank you. I explained to the patient that there could be some concern for malignancy with this recurrent SBO. Will have nursing get ahold of her family to discuss with them. Code(s): K56.69 - OTHER INTESTINAL OBSTRUCTION (2) Dementia Current Visit: No Status: Chronic Qualifiers: Dementia type: unspecified type Code(s): F03.90 - UNSPECIFIED DEMENTIA WITHOUT BEHAVIORAL DISTURBANCE (3) Diabetes mellitus Current Visit: No Status: Chronic Qualifiers: Diabetes mellitus type: type 2 Diabetes mellitus complication status: without complication Diabetes mellitus rn long term care insulin use: unspecified care home insulin use status Qualified Code(s): E11.9 - Type 2 diabetes mellitus without complications Assessment & Plan: will observe. First accucheck 141 here. Code(s): E11.9 - TYPE 2 DIABETES MELLITUS WITHOUT COMPLICATIONS (4) Renal failure Current Visit: No Status: Chronic Qualifiers: Renal failure chronicity: chronic Chronic kidney disease stage: stage 3 ( moderate) Qualified Code(s): N18.3 - Chronic kidney disease, stage 3 (moderate ) Assessment & Plan: Will observe. (5) Elevated blood pressure reading Current Visit: Yes Status: Acute Assessment & Plan: she's not on antihypertensives at [facility]. Will add IV medicine now as her BP has been 173/103, 180/95. Code(s): R03.0 - ELEVATED BLOOD-PRESSURE READING, W/O DIAGNOSIS OF HTN
[2017-04-29] MEDS ORDERED: TRANDATE 100 MG/20 ML MDV FOR DRIP IV PRN (11:45)
[2017-04-29] MEDS: PROTONIX 40 MG IV IV SCH (11:53)
[2017-04-29] MEDS: Lasix 20 MG/2 ML IV SCH (11:54)
[2017-04-29] MEDS: Zosyn 3.375GM/100 Ml D5W 3.375 GM/100 ML IVPB IV SCH ×4 (11:55→23:31)
[2017-04-29] MEDS: ENOXAPARIN SODIUM SQ SCH (12:19)
--- NOTE | 2017-04-29 20:18 | XRAY ---
Indication: Emesis. History of bowel obstruction. Multiple contiguous axial images obtained through the abdomen and pelvis without contrast as ordered. Comparison: March 28, 2017. Lung bases again demonstrates minimal left base atelectasis/scarring. Heart is not enlarged. Stable moderate-sized hiatal hernia. Noncontrasted stomach and small bowel loops again abnormally fluid distended with small bowel dilatation today up to 5.3 cm. Transition point identified left lower abdomen consistent with small bowel obstruction. The more distal small bowel loops are decompressed and there remains little bowel gas in the colon. Stable scattered colonic diverticulosis. No free fluid/air. Stable hepatic calcified granuloma, cholecystectomy, hysterectomy, and previous reported appendectomy. 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 Remaining liver, pancreas, spleen, adrenal glands, kidneys, and ureters unremarkable for noncontrast exam. There remains heavy aortoiliac calcifications without AAA. Osseous structures intact again with mild degenerative changes throughout the spine and scoliosis. Impression: 1. Again abnormal CT abdomen/pelvis exam favoring distal small bowel obstruction similar in appearance to the previous study. 2. Stable hiatal hernia and colonic diverticulosis. Comment: Preliminary interpretation was made by C. No discrepancy. CTDI 21.19
--- NOTE | 2017-04-29 21:14 | XRAY ---
Indication: NG tube placement. Comparison: March 28, 2017. Portable chest demonstrates new NG tube traversing the chest with the tip coiled in the stomach. Stable right apical and left base fibrosis/scarring. Remaining lungs clear. Heart is not enlarged. Vascularity normal. Impression: New NG tube tip coiled in the stomach. Remaining chest nonacute again with chronic features. Comment: Preliminary interpretation was made by [facility]. No discrepancy.
[2017-04-30] MEDS: Zosyn 3.375GM/100 Ml D5W 3.375 GM/100 ML IVPB IV SCH ×3 (05:36→21:16)
[2017-04-30 06:55] LABS: BASOPHIL % 0.2 % (0.0-0.4); Eosinophil % 0.7 % (0.00-5.0); Granulocytes % 69.3 % (36.0-66.0); Lymphocytes % 20.9 % (24.0-44.0); Mean Cell Volume 90.8 fl (78-100); Mean Corpuscular Hemoglobin 28.3 pg (26-32); Mean Platelet Volume 9.7 fl (6-9.5); Monocytes % 8.9 % (0.0-12.0); Platelet Count 267 K/mm3 (150-450); Red Blood Count 4.48 M/mm3 (4.1-5.4); Red Cell Distribution Width 15.6 % (11.5-14.0); White Blood Count 9.2 K/mm3 (4.0-10.5)
[2017-04-30 07:14] LABS: ALBUMIN 3.4 g/dL (3.4-5.0); ANION GAP 9.6 MEQ/L (5-15); BILIRUBIN,TOTAL 0.4 mg/dL (0.2-1.0); Carbon Dioxide 31.5 mEq/L (21-32); Potassium 4.3 mEq/L (3.5-5.1); Total Protein 6.6 gm/dL (6.4-8.2)
[2017-04-30] MEDS: Sodium Chloride 0.9% W/ 20 mEq KCl/LITER 1,000 ML IV SCH (08:40)
[2017-04-30] MEDS ORDERED: FLUZONE HIGH-DOSE 2017-18 SYR IM ONE (10:00)
[2017-04-30] MEDS: ENOXAPARIN SODIUM SQ SCH (10:00)
--- NOTE | 2017-04-30 11:27 | PCM.NOTE ---
Date and Time: 04/30/17 1122 Subjective Assessment: Pt got her NG yesterday. Still has no complaints today. Is oriented to place but thinks the month is October. Doesn't remember seeing me yesterday. Dr. Basil Deluca saw her yesterday, would like to consider conservative treatment. - Review of Systems Constitutional: No Fever Abdominal/Gastrointestinal: No Abdominal Pain Objective Exam General Appearance: no apparent distress, alert Neurologic Exam: cooperative, disoriented (to time) Skin Exam: normal color, warm, dry Ears, Nose, Throat Exam: other (NG in place) Neck Exam: normal inspection Respiratory Exam: normal breath sounds, lungs clear, No crackles/rales, No rhonchi, No wheezing Cardiovascular Exam: regular rate/rhythm, normal heart sounds, No murmur Gastrointestinal/Abdomen Exam: soft, normal bowel sounds, No tenderness, No distention, No mass, No guarding, No rebound Extremity Exam: No pedal edema, No swelling OBJECTIVE DATA Vital Signs: Vital Signs - 24 hr Temp Pulse Resp BP Pulse Ox 04/30/17 11:13 98 F 86 20 148/88 96 04/30/17 07:23 97.7 F 77 20 160/72 96 04/30/17 04:00 98.4 F 81 18 137/64 97 04/30/17 00:00 98.1 F 86 20 138/66 94 L 04/29/17 20:00 98.4 F 92 H 18 141/61 93 L 04/29/17 16:02 97.8 F 96 H 18 140/66 97 04/29/17 12:36 97.8 F 86 20 174/88 94 L Pain Assessment - Last Documented Pain Intensity 0 Pain Scale Used 0-10 Pain Scale Intake and Output: Intake & Output 04/27/17 04/28/17 04/29/17 04/30/17 11:59 11:59 11:59 11:59 Intake Total 3638 Output Total 1200 Balance 2438 Lab Results: Accuchecks Date 04/30/17 Date 04/30/17 Date 04/29/17 Time 01:12 Time 22:00 Time 15:59 Accucheck Value: 112 Accucheck Value: 118 Lab Results-Last 24 Hours 04/30/17 04/30/17 Range/Units 05:35 05:35 WBC 9.2 (4.0-10.5) K/mm3 RBC 4.48 (4.1-5.4) M/mm3 Hgb 12.7 (12.0-16.0) gm/dl Hct 40.7 (35-47) % MCV 90.8 (78-100) fl MCH 28.3 (26-32) pg MCHC 31.2 L (32-36) g/dl RDW 15.6 H (11.5-14.0) % Plt Count 267 (150-450) K/mm3 MPV 9.7 H (6-9.5) fl Gran % 69.3 H (36.0-66.0) % Lymphocytes % 20.9 L (24.0-44.0) % Monocytes % 8.9 (0.0-12.0) % Eosinophils % 0.7 (0.00-5.0) % Basophils % 0.2 (0.0-0.4) % Basophils # 0.02 (0-0.4) Sodium 144 (136-145) mEq/L Potassium 4.3 (3.5-5.1) mEq/L Chloride 107 (98-107) mEq/L Carbon Dioxide 31.5 (21-32) mEq/L Anion Gap 9.6 (5-15) MEQ/L BUN 31 H (9-20) mg/dL Creatinine 1.34 H (0.55-1.30) mg/dl Estimated GFR 40 ML/MIN Glucose 118 H (70-110) MG/DL Calcium 8.6 (8.5-10.1) mg/dL Total Bilirubin 0.40 (0.2-1.0) mg/dL AST 14 L (15-37) U/L ALT 14 (12-78) U/L Alkaline Phosphatase 86 (46-116) U/L Serum Total Protein 6.6 (6.4-8.2) gm/dL Albumin 3.4 (3.4-5.0) g/dL Radiology Exams: Radiology Procedures Category Date Time Status CHEST 1 VIEW (PORTABLE) Stat Exams 04/29/17 19:19 Completed Multi-Disciplinary Progress Notes: Multi-Disciplinary Progress Notes 04/29/17 14:26 Case Management Note by Alida Salvador DISCHARGE PLAN REVIEWED. PT NORMALLY LIVES AT [facility], ET DOES RECIEVE HELP WITH HER ADL'S, BUT IS ALERT AND MOSTLY ORIENTED AND MAKES HER OWN DECISIONS. PLAN TO RETURN TO [facility] AT PRE EPISODIC LEVEL OF FUNCTION. WILL CONTINUE TO MONITOR FOR ALL D/C NEEDS. Initialized on 04/29/17 14:26 - END OF NOTE Assessment/Plan (1) Small bowel obstruction Current Visit: Yes Status: Acute Assessment & Plan: Clinically, she looks like she feels better than yesterday. Conservative mgmt per surgery, thank you. NG in place. Code(s): K56.69 - OTHER INTESTINAL OBSTRUCTION (2) Dementia Current Visit: No Status: Chronic Qualifiers: Dementia type: unspecified type Code(s): F03.90 - UNSPECIFIED DEMENTIA WITHOUT BEHAVIORAL DISTURBANCE (3) Diabetes mellitus Current Visit: No Status: Chronic Qualifiers: Diabetes mellitus type: type 2 Diabetes mellitus complication status: without complication Diabetes mellitus supervisor intermediates insulin use: unspecified prison insulin use status Qualified Code(s): E11.9 - Type 2 diabetes mellitus without complications Assessment & Plan: BS 112-140 here. Code(s): E11.9 - TYPE 2 DIABETES MELLITUS WITHOUT COMPLICATIONS (4) Renal failure Current Visit: No Status: Chronic Qualifiers: Renal failure chronicity: chronic Chronic kidney disease stage: stage 3 ( moderate) Qualified Code(s): N18.3 - Chronic kidney disease, stage 3 (moderate ) Assessment & Plan: Cr is 1.34, slightly higher than yesterday. Will increase her fluids slightly, from 100cc/hr to 125 cc/hr. (5) HTN (hypertension) Current Visit: Yes Status: Acute Assessment & Plan: BP up to 160s systolic, interspersed with some 130s-140s systolic. I will go ahead and start her on a low dose clonidine patch, will avoid oral as she can't take it currently and she has had multiple SBO so could take this med regardless of ability to take po. Code(s): I10 - ESSENTIAL (PRIMARY) HYPERTENSION
[2017-04-30] MEDS ORDERED: Catapres-TTS 1 PATCH TOP SCH (11:30)
[2017-04-30] MEDS: PROTONIX 40 MG IV IV SCH (11:34)
[2017-04-30] MEDS: Lasix 20 MG/2 ML IV SCH (11:34)
[2017-04-30] MEDS: Lactated Ringers 1,000 ML IV SCH ×2 (12:37→21:16)
[2017-05-01] MEDS: Zosyn 3.375GM/100 Ml D5W 3.375 GM/100 ML IVPB IV SCH (06:29)
[2017-05-01 06:45] LABS: Mean Cell Volume 91.6 fl (78-100); Mean Corpuscular Hemoglobin 28.4 pg (26-32); Mean Platelet Volume 9.3 fl (6-9.5); Platelet Count 213 K/mm3 (150-450); Red Blood Count 4.18 M/mm3 (4.1-5.4); White Blood Count 6.9 K/mm3 (4.0-10.5)
[2017-05-01 06:52] LABS: ANION GAP 13.9 MEQ/L (5-15); BLOOD UREA NITROGEN 22 mg/dL (9-20); CHLORIDE 109 mEq/L (98-107); Carbon Dioxide 26.7 mEq/L (21-32); Glucose 91 MG/DL (70-110); Potassium 3.6 mEq/L (3.5-5.1); SODIUM 146 mEq/L (136-145)
--- NOTE | 2017-05-01 09:07 | XRAY ---
Indication: Follow-up small bowel obstruction. Comparison: March 29, 2017. 2 views of the abdomen again demonstrates central small bowel air-fluid leveling less distended today. There is distal colonic/rectal bowel gas. Solid organs unremarkable. Osseous structures intact again with osteopenia, degenerative changes, and scoliosis. Impression: Partial small bowel obstruction improved since the previous study and the more recent CT abdomen/pelvis 3 days ago.
[2017-05-01] MEDS ORDERED: ZOFRAN ODT 4 MG PO PRN (12:50)
--- NOTE | 2017-05-01 12:56 | CONS ---
CONSULT DATE: 05/01/2017 REASON FOR CONSULT: Bowel obstruction. HISTORY: The patient was in a few weeks ago with bowel obstruction. She was here nearly two weeks. She had a very slow resolution of an ileus I think secondary to a urinary tract infection or stress fracture. She now presents with abdominal distention and vomiting. She initially refused nasogastric tube. A nasogastric tube was placed. It is fairly clear. Her abdomen has very mild distention. Her labs are normal. She appears nontoxic. She is alert and oriented. Her abdomen has no peritoneal signs. IMPRESSION: Recurrent partial small bowel obstruction. PLAN: She is basically not a surgical candidate and I would suspect this will resolve on its own as it has in the past. We are available if needed.
[2017-05-01] MEDS: Levofloxacin 250MG Tablet PO SCH (13:52)
[2017-05-01] MEDS: ENOXAPARIN SODIUM SQ SCH (13:52)
[2017-05-01] MEDS: Protonix 40MG Tablet PO SCH (13:52)
[2017-05-01] MEDS: PROTONIX 40 MG IV IV SCH (13:57)
--- NOTE | 2017-05-01 17:59 | PCM.NOTE ---
Date and Time: 05/01/17 1754 Subjective Assessment: she denies any pain and had some clear liquids for lunch and just had full liquids for dinner she has not had a bowel movement. she continues to be slightly more confused then her baseline she thinks she is in [place] now. she is easily redirected she does not recall the last few days events acurately and as very confused yesterday it appears. Objective Exam General Appearance: no apparent distress, alert Neurologic Exam: alert, oriented x 3, cooperative, normal mood/affect, nml cerebellar function, sensation nml, No motor deficits Skin Exam: normal color, warm, dry Eye Exam: PERRL, EOMI, eyes nml inspection Ears, Nose, Throat Exam: normal ENT inspection, pharynx normal, moist mucous membranes Neck Exam: normal inspection, non-tender, supple, full range of motion Respiratory Exam: normal breath sounds, lungs clear, No respiratory distress Cardiovascular Exam: regular rate/rhythm, normal heart sounds Gastrointestinal/Abdomen Exam: soft, normal bowel sounds, No tenderness, No mass Extremity Exam: normal inspection, normal range of motion Back Exam: normal inspection, normal range of motion, No CVA tenderness, No vertebral tenderness Pelvic Exam: deferred Rectal Exam: deferred OBJECTIVE DATA Vital Signs: Vital Signs - 24 hr Temp Pulse Resp BP Pulse Ox 05/01/17 16:10 97.6 F 97 H 20 146/84 96 05/01/17 13:20 97.8 F 89 20 170/88 98 05/01/17 07:29 98 F 90 20 168/84 96 05/01/17 04:00 97.9 F 82 20 139/74 96 04/30/17 23:43 98.2 F 78 20 138/90 95 04/30/17 20:00 98.1 F 99 H 20 156/84 95 Pain Assessment - Last Documented Pain Intensity 0 Pain Scale Used 0-10 Pain Scale Intake and Output: Intake & Output 04/29/17 04/30/17 05/01/17 05/02/17 11:59 11:59 11:59 11:59 Intake Total 3638 1265 1080 Output Total 1200 500 700 Balance 2438 765 380 Lab Results: Accuchecks Date 04/30/17 Time 21:00 Accucheck Value: 85 Accucheck Value: 79 Accucheck Value: 80 Accucheck Value: 78 Lab Results-Last 24 Hours 05/01/17 05/01/17 Range/Units 05:35 05:35 WBC 6.9 (4.0-10.5) K/mm3 RBC 4.18 (4.1-5.4) M/mm3 Hgb 11.9 L (12.0-16.0) gm/dl Hct 38.3 (35-47) % MCV 91.6 (78-100) fl MCH 28.4 (26-32) pg MCHC 31.1 L (32-36) g/dl RDW 15.0 H (11.5-14.0) % Plt Count 213 (150-450) K/mm3 MPV 9.3 (6-9.5) fl Sodium 146 H (136-145) mEq/L Potassium 3.6 (3.5-5.1) mEq/L Chloride 109 H (98-107) mEq/L Carbon Dioxide 26.7 (21-32) mEq/L Anion Gap 13.9 (5-15) MEQ/L BUN 22 H (9-20) mg/dL Creatinine 0.95 (0.55-1.30) mg/dl Estimated GFR > 60 ML/MIN Glucose 91 (70-110) MG/DL Calcium 9.0 (8.5-10.1) mg/dL Radiology Exams: Radiology Procedures Category Date Time Status ABDOMEN 2 VIEW Routine Exams 05/01/17 06:00 Completed CHEST 1 VIEW (PORTABLE) Stat Exams 04/29/17 19:19 Completed Multi-Disciplinary Progress Notes: Multi-Disciplinary Progress Notes 05/01/17 10:00 (created 05/01/17 15:43) Case Management Note by Susan Rodriguez DISCHARGE PLAN REVIEWED, PT/SON CONTINUE TO PLAN FOR PT TO RETURN TO [facility] ON DISCHARGE. DECLINED ADDNL NEEDS. WILL FOLLOW FOR ALL DC NEEDS. Initialized on 05/01/17 15:43 - END OF NOTE Assessment/Plan (1) Small bowel obstruction Current Visit: Yes Status: Acute Assessment & Plan: advancing diet as tolerated still no bm she self removed the NG and the iv and refused reinsertion if able to tolerate full diet without vomiting will be stable for d/c back to [facility] will work on follow up with surgery given her multiple recurrences resulting in hospitalization Code(s): K56.69 - OTHER INTESTINAL OBSTRUCTION * DO NOT USE * (2) HTN (hypertension) Current Visit: Yes Status: Chronic Code(s): I10 - ESSENTIAL (PRIMARY) HYPERTENSION (3) Dementia Current Visit: Yes Status: Chronic Qualifiers: Dementia type: unspecified type Assessment & Plan: mild Code(s): F03.90 - UNSPECIFIED DEMENTIA WITHOUT BEHAVIORAL DISTURBANCE (4) UTI (urinary tract infection) Current Visit: Yes Status: Acute Assessment & Plan: change to po levaquin Code(s): N39.0 - URINARY TRACT INFECTION, SITE NOT SPECIFIED (5) Delirium Current Visit: Yes Status: Acute Assessment & Plan: secondary to infection sbo and the chronic dementia Code(s): R41.0 - DISORIENTATION, UNSPECIFIED
[2017-05-02 04:47] VITALS: PULSE 67
[2017-05-02 07:56] VITALS: BP 170/74; O2SAT 97
--- NOTE | 2017-05-02 08:16 | PCM.DCORD ---
- Discharge Discharge Date: 05/02/17 Disposition: DC TO [facility] Condition: Stable Prescriptions: New Lorazepam 0.5 mg [Ativan 0.5 MG] 0.25 mg PO HS #15 tablet Ciprofloxacin HCl [Cipro] 250 mg PO BID #10 tablet Escitalopram Oxalate 10 mg [Lexapro 10 MG] 10 mg PO DAILY #30 tablet Continue Potassium Chloride 20 Meq Tab [Potassium Chloride 20 MEQ TABLET] 20 meq PO BID Furosemide [Lasix] 40 mg PO DAILY Omeprazole 20 MG [Prilosec 20 mg] 20 mg PO BID Magnesium Oxide 400 mg [Mag-Ox 400] 800 mg PO BID Docusate Sodium 100 mg [Colace 100 MG] 1 cap PO DAILY Acetaminophen 325 mg [Tylenol 325 mg] 650 mg PO DAILY Acetaminophen 325 mg [Tylenol 325 mg] 650 mg PO HS Atorvastatin Calcium 20 mg PO HS Discontinued Rosuvastatin Calcium [Crestor] 10 mg PO HS Glucagon 1 mg [GlucaGen 1 MG] 1 mg IM UD PRN PRN Reason: Hypoglycemia Guaifenesin [Q-Tussin] 100 mg PO Q4HPRN PRN PRN Reason: Cough Additional Instructions: PT RECEIVED THE FLU VAC HERE ON APR 30, 2017 Follow up with: DREW MCDONALD [Primary Care Provider] - Forms: Patient Portal Information
[2017-05-02] MEDS: Levofloxacin 250MG Tablet PO SCH (10:05)
[2017-05-02] MEDS: Protonix 40MG Tablet PO SCH (10:05)
[2017-05-02] MEDS: ENOXAPARIN SODIUM SQ SCH (10:05)
--- NOTE | 2017-05-02 21:30 | PCM.DS ---
Discharge Summary Date of Admission: 04/29/17 13:15 Date of Discharge: 05/02/17 Admitting Physician: MANDY CARLSON Primary Care Provider: DREW MCDONALD Allergies Allergies No Known Drug Allergies Allergy (Verified 04/29/17 05:25) Hospital Summary - Hospital Course Hospital Course: she was admitted with recurrent sbo placed an ng and iv fluids surgery consulted and she improved with no pain vomiting resolved. She was found to be drinking the irrigation water on Monday then pulled out her NG and her IV as she wanted to eat. Started on po Monday at lunch advanced to softs by Monday am with no abdominal pain nausea or vomiting and normal bowel sounds. She states she has a had a bowel movement that she did herself but none of the aides can confirm this. She has difficulty with confusion that is a little worse then when she is at her normal room at [facility] it is improved today but on Monday she felt she was in [place]. SHe suffers from mild dementia. She won't allow another IV placed. WIth tolerating po now she will likely due better mental status in her regular environment and willd/[facility]. work on surgery f/u with the recurrent obstructions at the same place becoming more frequent. considering checking x-ray abdominal if she would consider it but she is doing better now. She did have uti will continue cipro to complete coarse. - Vitals & Intake/Output Vital Signs: Vital Signs Temperature 98.4 F 05/02/17 07:55 Pulse Rate 67 05/02/17 07:55 Respiratory Rate 18 05/02/17 07:55 Blood Pressure 170/74 05/02/17 07:55 O2 Sat by Pulse Oximetry 97 05/02/17 07:55 Intake & Output: Intake & Output 04/30/17 05/01/17 05/02/17 05/03/17 11:59 11:59 11:59 11:59 Intake Total 3638 1265 2000 Output Total 1200 500 900 Balance 2438 765 1100 - Lab Result Diagrams: 05/01/17 05:35 05/01/17 05:35 Lab Results-Last 24 Hrs: Accuchecks Date 05/01/17 Time 22:00 Accucheck Value: 88 Micro Results-Entire Visit: Accuchecks Date 05/01/17 Time 22:00 Accucheck Value: 88 - Radiology Exams Ordered Rad Exams-Entire Visit: Radiology Procedures Category Date Time Status ABDOMEN 2 VIEW Routine Exams 05/01/17 06:00 Completed Discharge Exam General Appearance: no apparent distress Neurologic Exam: alert, cooperative, other (oriented to place and situation and person not oriented to time) Skin Exam: warm, dry Eye Exam: No EOMI Ears, Nose, Throat Exam: moist mucous membranes Neck Exam: non-tender, supple Respiratory Exam: normal breath sounds, lungs clear Cardiovascular Exam: regular rate/rhythm, normal heart sounds Gastrointestinal/Abdomen Exam: soft, normal bowel sounds, No tenderness, No distention, No mass Extremity Exam: normal inspection, No calf tenderness Final Diagnosis/Problem List - Final Discharge Diagnosis/Problem (1) Small bowel obstruction Status: Acute (2) HTN (hypertension) Status: Chronic (3) Dementia Status: Chronic (4) UTI (urinary tract infection) Status: Acute (5) Delirium Status: Acute - Discharge Discharge Date: 05/02/17 Disposition: CT TO [facility] Condition: Stable Prescriptions: New Lorazepam 0.5 mg [Ativan 0.5 MG] 0.25 mg PO HS #15 tablet Ciprofloxacin HCl [Cipro] 250 mg PO BID #10 tablet Escitalopram Oxalate 10 mg [Lexapro 10 MG] 10 mg PO DAILY #30 tablet Continue Potassium Chloride 20 Meq Tab [Potassium Chloride 20 MEQ TABLET] 20 meq PO BID Furosemide [Lasix] 40 mg PO DAILY Omeprazole 20 MG [Prilosec 20 mg] 20 mg PO BID Magnesium Oxide 400 mg [Mag-Ox 400] 800 mg PO BID Docusate Sodium 100 mg [Colace 100 MG] 1 cap PO DAILY Acetaminophen 325 mg [Tylenol 325 mg] 650 mg PO DAILY Acetaminophen 325 mg [Tylenol 325 mg] 650 mg PO HS Atorvastatin Calcium 20 mg PO HS Discontinued Rosuvastatin Calcium [Crestor] 10 mg PO HS Glucagon 1 mg [GlucaGen 1 MG] 1 mg IM UD PRN PRN Reason: Hypoglycemia Guaifenesin [Q-Tussin] 100 mg PO Q4HPRN PRN PRN Reason: Cough Additional Instructions: [facility]AYLE[facility]ER [facility] PRISON ORDERS: PT RECEIVED THE FLU VAC ON APR 30, 2017 SOFT DIET TOLERATED CONTINUE ALL PREVIOUS PRISON ORDERS SEE ATTACHED MED LIST FOR CURRENT MED ORDERS Follow up with: DREW MCDONALD [Primary Care Provider] - Forms: Patient Portal Information
== END 2017-05-02 11:05 | DRG 389 ==
LOC: ED 04:51 → MED SURG 07:20 → OBSVTOIN 13:15
PROVIDERS: ADMIT Family Medicine; ATTEND Family Medicine
DX: K56.699 Other intestinal obstruction unspecified as to partial versus complete obstruction (principal); N39.0 Urinary tract infection, site not specified; I12.9 Hypertensive chronic kidney disease with stage 1 through stage 4 chronic kidney disease, or unspecified chronic kidney disease; N18.3 Chronic kidney disease, stage 3 (moderate); F03.90 Unspecified dementia, unspecified severity, without behavioral disturbance, psychotic disturbance, mood disturbance, and anxiety; R41.0 Disorientation, unspecified; E11.9 Type 2 diabetes mellitus without complications; R03.0 Elevated blood-pressure reading, without diagnosis of hypertension; K21.9 Gastro-esophageal reflux disease without esophagitis; Z79.899 Other long term (current) drug therapy
CPT/HCPCS: 36415; 71010; 74020; 74176; 80048; 80053; 81000; 82150; 82962; 83605; 83690; 84484; 85025; 85027; 87077; 87086; 87186; 96360; 96365; 99285; G0008; J0696; J1650; J1940; J2405; J2543; J2550; 90662; A9270-GY

== ENCOUNTER 2017-07-28 11:45 | Inpatient (IN) | payer MEDICARE ==
--- NOTE | 2017-07-28 12:01 | ERPHSYRPT ---
- History of Present Illness Time Seen by Provider: 07/28/17 11:54 Source: patient, EMS Exam Limitations: no limitations Patient Subjective Stated Complaint: stated had one diarrhea episode this morning Triage Nursing Assessment: c/o having diarrhea x 1 this morning, states stools usually loose, no fevers, no c/o abd pain, no nausea or vomiting Physician History: The patient is an 81-year-old female from a local alf brought in by ambulance for one loose stool 4 hours ago. She denies any abdominal pain. She denies fever. She denies nausea or vomiting. Her past medical history is significant for high cholesterol, hypertension, early Alzheimer's, CHF, and abdominal pain. After discussion with her family doctor, Dr. Jere Mcdonald, my initial patient report of one loose stool with no vomiting was an air. The alf had discussed the patient's condition with her primary doctor this morning. The initial report was that of vomiting several times and severe abdominal pain. Timing/Duration: today Severity: mild Modifying Factors: Improves With: nothing Associated Symptoms: other (loose BM) Allergies/Adverse Reactions: No Known Drug Allergies Allergy (Verified 04/29/17 05:25) Home Medications: Potassium Chloride 20 Meq Tab [Potassium Chloride 20 MEQ TABLET] 20 meq PO BID 10/23/14 [History] Furosemide [Lasix] 40 mg PO DAILY 11/04/14 [History] Magnesium Oxide 400 mg [Mag-Ox 400] 800 mg PO BID 06/03/15 [History] Omeprazole 20 MG [Prilosec 20 mg] 20 mg PO BID 06/03/15 [History] Acetaminophen 325 mg [Tylenol 325 mg] 650 mg PO DAILY 11/26/15 [History] Docusate Sodium 100 mg [Colace 100 MG] 1 cap PO DAILY 11/26/15 [History] Acetaminophen 325 mg [Tylenol 325 mg] 650 mg PO HS 03/28/17 [History] Atorvastatin Calcium 20 mg PO HS 04/29/17 [History] Hx Tetanus, Diphtheria Vaccination/Date Given: Yes Hx Influenza Vaccination/Date Given: Yes Hx Pneumococcal Vaccination/Date Given: Yes Immunizations Up to Date: Yes - Review of Systems Constitutional: No Fever, No Chills Eyes: No Symptoms Ears, Nose, & Throat: No Symptoms Respiratory: No Cough, No Dyspnea Cardiac: No Chest Pain, No Edema, No Syncope Abdominal/Gastrointestinal: Other (loose stool), No Abdominal Pain, No Nausea, No Vomiting, No Diarrhea Genitourinary Symptoms: No Dysuria Musculoskeletal: No Back Pain, No Neck Pain Skin: No Rash Neurological: No Dizziness, No Focal Weakness, No Sensory Changes Psychological: No Symptoms Endocrine: No Symptoms Hematologic/Lymphatic: No Symptoms Immunological/Allergic: No Symptoms All Other Systems: Reviewed and Negative - Past Medical History Pertinent Past Medical History: Yes Neurological History: Dementia ENT History: No Pertinent History Cardiac History: High Cholesterol, Hypertension Respiratory History: No Pertinent History Endocrine Medical History: Diabetes Type II Musculoskeletal History: No Pertinent History GI Medical History: GERD, Other History: No Pertinent History Psycho-Social History: No Pertinent History Female Reproductive Disorders: No Pertinent History Other Medical History: post procedural HTN, kidney infections, bowel obstructions & paralytic ileus - Past Surgical History Past Surgical History: Yes Neuro Surgical History: No Pertinent History Cardiac: No Pertinent History Respiratory: No Pertinent History Gastrointestinal: Cholecystectomy Musculoskeletal: No Pertinent History Female Surgical History: Hysterectomy Other Surgical History: Tonsils removed as child, [facility] did a stomach ulcer surgery about a year ago - Social History Smoking Status: Never smoker Exposure to second hand smoke: No Drug Use: none Patient Lives Alone: No - Female History Hx Now: No - Nursing Vital Signs Nursing Vital Signs: Initial Vital Signs Temperature 98.6 F 07/28/17 11:47 Pulse Rate 92 H 07/28/17 11:47 Respiratory Rate 18 07/28/17 11:47 Blood Pressure 143/70 07/28/17 11:47 O2 Sat by Pulse Oximetry 94 L 07/28/17 11:47 Pain Scale Pain Intensity 0 - Physical Exam General Appearance: no apparent distress, alert Eye Exam: PERRL/EOMI, eyes nml inspection Ears, Nose, Throat Exam: normal ENT inspection, TMs normal, pharynx normal, moist mucous membranes Neck Exam: normal inspection, non-tender, supple, full range of motion Respiratory Exam: normal breath sounds, lungs clear, No respiratory distress Cardiovascular Exam: regular rate/rhythm, normal heart sounds, normal peripheral pulses Gastrointestinal/Abdomen Exam: soft, normal bowel sounds, No tenderness, No mass Pelvic Exam: not done Rectal Exam: not done Back Exam: normal inspection, normal range of motion, No CVA tenderness, No vertebral tenderness Extremity Exam: normal inspection, normal range of motion, pelvis stable Neurologic Exam: alert, oriented x 3, cooperative, normal mood/affect, nml cerebellar function, nml station & gait, sensation nml, No motor deficits Skin Exam: normal color, warm, dry, No rash Lymphatic Exam: No adenopathy SpO2 Interpretation: normal SpO2: 94 Oxygen Delivery: Room Air - Radiology Exams Chest X-ray Interpretation: Reviewed by me, Teleradiologist Report, Negative (Per Dr Hidalgo) Abdomen X-ray Interpretation: Reviewed by me, Teleradiologist Report, Other (Air fluid levels in small and large bowels, ileus versus eneterocolitis. Obstruction not completely excluded. Per Dr Hidalgo.) - CT Exams Abdomen/Pelvis CT Interpretation: Tele-radiologist Report, Other (fluid distended small bowel loops with decompressed distal ileum and colon favoring small bowel obsrtruction per Dr Hidalgo.) Ordered Tests: Active Orders 24 hr Category Date Time Status ABDOMEN AND PELVIS W/0 CONTRAS [CT] Stat Exams 07/28/17 13:33 Completed OBSTR/ACUTE ABDOMEN SERIES Stat Exams 07/28/17 12:04 Completed CBC W DIFF Stat Lab 07/28/17 12:23 Completed CMP Stat Lab 07/28/17 12:23 Completed CULTURE,URINE Stat Lab 07/28/17 13:15 Received UA W/ MICROSCOPIC Stat Lab 07/28/17 13:15 Completed Lab/Rad Data: Laboratory Result Diagrams 07/28/17 12:23 07/28/17 12:23 Laboratory Results 07/28/17 07/28/17 07/28/17 Range/Units 13:15 12:23 12:23 WBC 20.7 H (4.0-10.5) K/mm3 RBC 4.66 (4.1-5.4) M/mm3 Hgb 13.0 (12.0-16.0) gm/dl Hct 42.2 (35-47) % MCV 90.6 (78-100) fl MCH 27.9 (26-32) pg MCHC 30.8 L (32-36) g/dl RDW 13.6 (11.5-14.0) % Plt Count 260 (150-450) K/mm3 MPV 9.3 (6-9.5) fl Gran % 93.6 H (36.0-66.0) % Lymphocytes % 3.4 L (24.0-44.0) % Monocytes % 2.9 (0.0-12.0) % Eosinophils % 0.0 (0.00-5.0) % Basophils % 0.1 (0.0-0.4) % Basophils # 0.03 (0-0.4) Sodium 143 (136-145) mEq/L Potassium 3.9 (3.5-5.1) mEq/L Chloride 103 (98-107) mEq/L Carbon Dioxide 27.2 (21-32) mEq/L Anion Gap 16.6 H (5-15) MEQ/L BUN 32 H (9-20) mg/dL Creatinine 1.21 (0.55-1.30) mg/dl Estimated GFR 46 ML/MIN Glucose 158 H (70-110) MG/DL Calcium 9.6 (8.5-10.1) mg/dL Total Bilirubin 0.40 (0.2-1.0) mg/dL AST 16 (15-37) U/L ALT 17 (12-78) U/L Alkaline Phosphatase 109 (46-116) U/L Serum Total Protein 7.4 (6.4-8.2) gm/dL Albumin 3.9 (3.4-5.0) g/dL Ur Collection Type VOID Urine Color YELLOW (YELLOW) Urine Appearance HAZY (CLEAR) Urine pH 5.0 (5-6) Ur Specific [place] 1.015 (1.005-1.025) Urine Protein TRACE (Negative) Urine Ketones NEGATIVE (NEGATIVE) Urine Blood 250 (0-5) Santy/ul Urine Nitrite NEGATIVE (NEGATIVE) Urine Bilirubin NEGATIVE (NEGATIVE) Urine Urobilinogen NORMAL (0-1) mg/dL Ur Leukocyte Esterase TRACE (NEGATIVE) Urine Microscopic RBC 2-5 (0-2) /HPF Urine Microscopic WBC 10-15 (0-5) /HPF Ur Epithelial Cells PACKED (FEW) /HPF Urine Bacteria MODERATE (NEGATIVE) /HPF Urine Culture Reflexed YES (NO) Urine Glucose NEGATIVE (NEGATIVE) mg/dL Specimen Received 07/28/17 1315 - Progress Progress: improved Discussed with : Tonia Will see patient in: hospital (observation) Counseled pt/family regarding: lab results, diagnosis, rad results - Departure Time of Disposition: 15:34 Departure Disposition: Observation (per Dr Bhanu Mcdonald) Clinical Impression: Small bowel obstruction, UTI (urinary tract infection) Condition: Stable Critical Care Time: No Referrals: DREW MCDONALD [Primary Care Provider] -
[2017-07-28 12:35] LABS: BASOPHIL % 0.1 % (0.0-0.4); Basophil (Absolute #) 0.03 (0-0.4); Eosinophil (Absolute #) 0.01 (0-0.5); Granulocyte Absolute (ANC) 19.35 (1.4-6.9); Granulocytes % 93.6 % (36.0-66.0); Hematocrit 42.2 % (35-47); Lymphocyte (Absolute #) 0.71 (1.0-4.6); Lymphocytes % 3.4 % (24.0-44.0); Mean Cell Volume 90.6 fl (78-100); Mean Corpuscular Hemoglobin 27.9 pg (26-32); Mean Corpuscular Hgb Concent. 30.8 g/dl (32-36); Mean Platelet Volume 9.3 fl (6-9.5); Monocyte (Absolute #) 0.61 (0.0-1.3); Monocytes % 2.9 % (0.0-12.0); Platelet Count 260 K/mm3 (150-450); Red Blood Count 4.66 M/mm3 (4.1-5.4); Red Cell Distribution Width 13.6 % (11.5-14.0); White Blood Count 20.7 K/mm3 (4.0-10.5)
[2017-07-28 13:04] LABS: ALBUMIN 3.9 g/dL (3.4-5.0); ANION GAP 16.6 MEQ/L (5-15); BILIRUBIN,TOTAL 0.4 mg/dL (0.2-1.0); Calcium 9.6 mg/dL (8.5-10.1); Carbon Dioxide 27.2 mEq/L (21-32); Creatinine 1 1.21 mg/dl (0.55-1.30); Potassium 3.9 mEq/L (3.5-5.1); Total Protein 7.4 gm/dL (6.4-8.2)
--- NOTE | 2017-07-28 13:20 | XRAY ---
Indication: Loose stools. Comparison: May 01, 2017. 2 views of the abdomen now demonstrates mild air distended transverse colon and mid small bowel loop with air fluid leveling, ileus versus enterocolitis. Obstruction not completely excluded. Solid organs unremarkable. Osseous structures intact again with osteopenia, degenerative changes, and scoliosis. Single PA chest demonstrates stable left costophrenic angle fibrosis/scarring. Right apical fibrosis/scarring. Remaining heart and lungs unremarkable. Bony thorax intact. Impression: 1. Air distended small and large bowel loop as detailed with fluid leveling, ileus versus enterocolitis. Obstruction not completely excluded in the right clinical setting. 2. Nonacute 1V chest with chronic features.
[2017-07-28 13:33] LABS: Appearance HAZY (CLEAR); Bilirubin NEGATIVE (NEGATIVE); Blood 250 Ery/ul (0-5); Glucose NEGATIVE (NEGATIVE); Ketones NEGATIVE (NEGATIVE); Leukocyte Esterase TRACE (NEGATIVE); Nitrite NEGATIVE (NEGATIVE); Protein,Urine Dip TRACE (Negative); Specific Gravity 1.015 (1.005-1.025); Urobilinogen NORMAL mg/dL (0-1)
[2017-07-28 13:34] LABS: Bacteria MODERATE /HPF (NEGATIVE); Epithelial Cells PACKED /HPF (FEW)
--- NOTE | 2017-07-28 14:14 | XRAY ---
Indication: Loose stools. History of bowel obstruction. Multiple contiguous axial images obtained through the abdomen and pelvis without contrast as ordered. Comparison: April 29, 2017. Lung bases again demonstrates minimal left base atelectasis/scarring. Heart is not enlarged. Stable moderate-sized hiatal hernia with partial intrathoracic stomach. Noncontrasted stomach unremarkable. The small bowel loops are again abnormally fluid distended with dilatation today up to 5 cm with synchronous fluid leveling. The distal ileal bowel loops and colon are again decompressed with little colonic bowel gas. Stable scattered colonic diverticulosis. No free fluid/air. Stable hepatic calcified granuloma, cholecystectomy, hysterectomy, and previous reported appendectomy. 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 Remaining liver, pancreas, spleen, adrenal glands, kidneys, and ureters unremarkable for noncontrast exam. Stable heavy aortoiliac calcifications without AAA. Osseous structures intact again with mild degenerative changes throughout the spine and mild dextroscoliosis. Impression: 1. Again abnormal fluid distended small bowel loops to the level of the left lower quadrant with decompressed distal ileum and colon favoring small bowel obstruction. 2. Stable hiatal hernia and colonic diverticulosis. CTDI 22.16
[2017-07-28] MEDS ORDERED: TYLENOL 325 MG PO PRN (16:19)
[2017-07-28] MEDS: Sodium Chloride 0.9% 1000 ML 1,000 ML IV SCH (16:56)
[2017-07-28] MEDS: ROCEPHIN 1 Gm-D5w 50 ml Bag** 1 G/50 ML IVPB IV SCH (16:56)
--- NOTE | 2017-07-28 17:30 | PCM.HP ---
History of Present Illness - Chief Complaint Chief Complaint: small bowel obstruction Date: 07/28/17 History of Present Illness: is a 81 year old female. with recurrent small bowel obstructions but has been ruled not a surgical candidate multiple previous episodes by general surgery. This am she was at [facility] and had recurrent vomiting large amounts of foul smelling brown liquid about 3 times over 1 hour and was confused. She was sent to ED for further evaluation. She did have bowel movement that was liquid last night and has had BM in ED as well. She denies pain. She states she is hungry right now. She does not remember vomiting. - Review of Systems Constitutional: No Fever, No Chills Eyes: No Symptoms Ears, Nose, & Throat: No Symptoms Respiratory: No Cough, No Short Of Breath Cardiac: No Chest Pain, No Edema, No Syncope Abdominal/Gastrointestinal: Vomiting, Diarrhea, No Abdominal Pain, No Nausea Genitourinary Symptoms: No Dysuria Musculoskeletal: No Back Pain, No Neck Pain Skin: No Rash Neurological: No Dizziness, No Focal Weakness, No Sensory Changes Psychological: No Symptoms Endocrine: No Symptoms Hematologic/Lymphatic: No Symptoms Immunological/Allergic: No Symptoms Medications & Allergies Home Medications: Home Medication List Potassium Chloride 20 Meq Tab [Potassium Chloride 20 MEQ TABLET] 20 meq PO BID 10/23/14 [History Confirmed 07/28/17] Furosemide [Lasix] 40 mg PO DAILY 11/04/14 [History Confirmed 07/28/17] Magnesium Oxide 400 mg [Mag-Ox 400] 800 mg PO BID 06/03/15 [History Confirmed 07/28/17] Acetaminophen 325 mg [Tylenol 325 mg] 650 mg PO DAILY 11/26/15 [History Confirmed 07/28/17] Docusate Sodium 100 mg [Colace 100 MG] 1 cap PO DAILY 11/26/15 [History Confirmed 07/28/17] Acetaminophen 325 mg [Tylenol 325 mg] 650 mg PO HS 03/28/17 [History Confirmed 07/28/17] Atorvastatin Calcium 20 mg PO HS 04/29/17 [History Confirmed 07/28/17] Escitalopram Oxalate 10 mg [Lexapro 10 MG] 10 mg PO DAILY #30 tablet [Rx Confirmed 07/28/17] Lorazepam 0.5 mg [Ativan 0.5 MG] 0.25 mg PO HS #15 tablet 05/02/17 [Rx Confirmed 07/28/17] Pantoprazole 20 mg [Protonix 20MG Tablet] 20 mg PO BID 07/28/17 [History Confirmed 07/28/17] Allergies/Adverse Reactions: Allergies Allergy/AdvReac Type Severity Reaction Status Date / Time No Known Drug Allergies Allergy Verified 04/29/17 05:25 - Past Medical History Past Medical History: Yes Neurological History: Dementia ENT History: No Pertinent History Cardiac History: High Cholesterol, Hypertension Respiratory History: No Pertinent History Endocrine Medical History: Diabetes Type II Musculoskelatal History: No Pertinent History GI Medical History: GERD, Other History: No Pertinent History Pyscho-Social History: No Pertinent History Reproductive Disorders: No Pertinent History Comment: post procedural HTN, kidney infections, bowel obstructions & paralytic ileus - Female History Are you now?: No - Past Surgical History Past Surgical History: Yes Neuro Surgical History: No Pertinent History Cardiac History: No Pertinent History Respiratory Surgery: No Pertinent History GI Surgical History: Cholecystectomy Genitourinary Surgical Hx: No Pertinent History Musculskeletal Surgical Hx: No Pertinent History Female Surgical History: Hysterectomy Other Surgical History: Tonsils removed as child, son states [facility] did a stomach ulcer surgery about a year ago - Social History Smoking Status: Never smoker Exposure to second hand smoke: No Alcohol: None Drug Use: none - Physical Exam Vital Signs: Vital Signs - 24 hr Temp Pulse Resp BP Pulse Ox 07/28/17 16:27 97.8 F 87 20 141/63 95 07/28/17 15:39 94 L 07/28/17 15:06 90 18 153/75 94 L 07/28/17 13:56 90 20 101/68 97 07/28/17 13:24 90 18 145/75 96 07/28/17 12:41 88 18 172/92 93 L 07/28/17 11:47 98.6 F 92 H 18 143/70 94 L General Appearance: no apparent distress, alert, obese Neurologic Exam: alert, cooperative, normal mood/affect, nml cerebellar function , nml station & gait, sensation nml, other (oriented to place no time she does not recall the events from this morning), No motor deficits Eye Exam: PERRL/EOMI, eyes nml inspection, No scleral icterus, No pale conjunctivae Ears, Nose, Throat Exam: normal ENT inspection, pharynx normal, moist mucous membranes Neck Exam: normal inspection, non-tender, supple, full range of motion Respiratory Exam: normal breath sounds, lungs clear, No respiratory distress Cardiovascular Exam: regular rate/rhythm, normal heart sounds, normal peripheral pulses Gastrointestinal/Abdomen Exam: soft, tenderness (right lower and upper quadrant tenderness , hypoactive bowel sounds), No distention, No mass, No guarding Back Exam: normal inspection, normal range of motion, No CVA tenderness, No vertebral tenderness Extremity Exam: normal inspection, normal range of motion, pelvis stable Skin Exam: normal color, warm, dry, No rash Lymphatic Exam: No adenopathy Assessment/Plan (1) Small bowel obstruction Current Visit: Yes Status: Acute Assessment & Plan: she has had multiple recurrences over the last several years always with CT showing at same area. Multiple previous general surgery consults have discussed and decided not surgical candidate. This time she was only symptomatic 1 hour prior to being sent to ED and she is now having BM and is not vomiting since arrival or nauseated or pain and thus we did not place NG tube as she usually tries to pull it out after placed. She has hypoactive bowel sounds will allow ice chips only small sips of water with meds and will need NG if starts vomiting. Advance diet as bowel sounds improve She generally has resolution of her symptoms in short peroid of time 24 - 48 hours and is very anxious to go back to [facility] already at this time Code(s): K56.69 - OTHER INTESTINAL OBSTRUCTION * DO NOT USE * (2) UTI (urinary tract infection) Current Visit: Yes Status: Acute Assessment & Plan: Rocephin. possible contaminated sample as has packed epi cells. monitor culture Code(s): N39.0 - URINARY TRACT INFECTION, SITE NOT SPECIFIED (3) HTN (hypertension) Current Visit: Yes Status: Chronic Code(s): I10 - ESSENTIAL (PRIMARY) HYPERTENSION (4) Diabetes mellitus Current Visit: Yes Status: Chronic Code(s): E11.9 - TYPE 2 DIABETES MELLITUS WITHOUT COMPLICATIONS (5) Dementia Current Visit: Yes Status: Chronic Code(s): F03.90 - UNSPECIFIED DEMENTIA WITHOUT BEHAVIORAL DISTURBANCE
[2017-07-28] MEDS: TYLENOL 325 MG PO SCH (21:38)
[2017-07-28] MEDS: Klor Con 10 MEQ PO SCH (21:39)
[2017-07-28] MEDS: Protonix 20MG Tablet PO SCH (21:40)
[2017-07-28] MEDS: MAG-OX 400 PO SCH (21:40)
[2017-07-28] MEDS: Ativan 0.5 MG PO SCH (21:40)
[2017-07-28] MEDS: ZOCOR 20MG PO SCH (21:41)
[2017-07-29] MEDS: Sodium Chloride 0.9% 1000 ML 1,000 ML IV SCH (03:30)
[2017-07-29 05:54] LABS: BASOPHIL % 0.1 % (0.0-0.4); Basophil (Absolute #) 0.02 (0-0.4); Eosinophil % 0.8 % (0.00-5.0); Eosinophil (Absolute #) 0.11 (0-0.5); Granulocyte Absolute (ANC) 11.16 (1.4-6.9); Granulocytes % 81.2 % (36.0-66.0); Hematocrit 39.3 % (35-47); Hemoglobin 12.1 gm/dl (12.0-16.0); Lymphocyte (Absolute #) 1.55 (1.0-4.6); Lymphocytes % 11.3 % (24.0-44.0); Mean Cell Volume 91.4 fl (78-100); Mean Corpuscular Hemoglobin 28.1 pg (26-32); Mean Corpuscular Hgb Concent. 30.8 g/dl (32-36); Mean Platelet Volume 10.5 fl (6-9.5); Monocyte (Absolute #) 0.91 (0.0-1.3); Monocytes % 6.6 % (0.0-12.0); Platelet Count 153 K/mm3 (150-450); Red Cell Distribution Width 13.7 % (11.5-14.0); White Blood Count 13.8 K/mm3 (4.0-10.5)
[2017-07-29 06:17] LABS: ANION GAP 16.1 MEQ/L (5-15); Calcium 8.8 mg/dL (8.5-10.1); Carbon Dioxide 27.5 mEq/L (21-32); Creatinine 1 1.23 mg/dl (0.55-1.30); Potassium 4.5 mEq/L (3.5-5.1)
[2017-07-29] MEDS: MAG-OX 400 PO SCH ×2 (10:29→21:44)
[2017-07-29] MEDS: Lasix 40 MG PO SCH (10:29)
[2017-07-29] MEDS: Protonix 20MG Tablet PO SCH ×2 (10:29→21:43)
[2017-07-29] MEDS: Klor Con 10 MEQ PO SCH ×2 (10:29→21:43)
[2017-07-29] MEDS: ROCEPHIN 1 Gm-D5w 50 ml Bag** 1 G/50 ML IVPB IV SCH (10:29)
[2017-07-29] MEDS: Lexapro 10 MG PO SCH (10:29)
[2017-07-29] MEDS: TYLENOL 325 MG PO SCH ×2 (10:29→21:44)
[2017-07-29] MEDS: ZOCOR 20MG PO SCH (21:43)
[2017-07-29] MEDS: Ativan 0.5 MG PO SCH (21:44)
[2017-07-30] MEDS: Sodium Chloride 0.9% 1000 ML 1,000 ML IV SCH ×3 (02:39→09:25)
[2017-07-30 06:36] LABS: Hematocrit 34.9 % (35-47); Hemoglobin 10.6 gm/dl (12.0-16.0); Mean Cell Volume 93.3 fl (78-100); Mean Corpuscular Hemoglobin 28.3 pg (26-32); Mean Corpuscular Hgb Concent. 30.4 g/dl (32-36); Mean Platelet Volume 9.3 fl (6-9.5); Platelet Count 214 K/mm3 (150-450); Red Blood Count 3.74 M/mm3 (4.1-5.4); Red Cell Distribution Width 13.5 % (11.5-14.0); White Blood Count 7.4 K/mm3 (4.0-10.5)
[2017-07-30 06:54] LABS: ANION GAP 13.2 MEQ/L (5-15); BILIRUBIN,TOTAL 0.4 mg/dL (0.2-1.0); Calcium 8.1 mg/dL (8.5-10.1); Carbon Dioxide 25.3 mEq/L (21-32); Creatinine 1 1.01 mg/dl (0.55-1.30); Potassium 3.7 mEq/L (3.5-5.1); Total Protein 5.9 gm/dL (6.4-8.2)
[2017-07-30] MEDS: Lasix 40 MG PO SCH (08:28)
[2017-07-30] MEDS: Klor Con 10 MEQ PO SCH ×2 (08:28→21:15)
[2017-07-30] MEDS: TYLENOL 325 MG PO SCH ×2 (08:28→21:16)
[2017-07-30] MEDS: Protonix 20MG Tablet PO SCH ×2 (08:28→21:16)
[2017-07-30] MEDS: ROCEPHIN 1 Gm-D5w 50 ml Bag** 1 G/50 ML IVPB IV SCH (08:29)
[2017-07-30] MEDS: MAG-OX 400 PO SCH ×2 (08:34→21:16)
[2017-07-30] MEDS: Lexapro 10 MG PO SCH (08:41)
[2017-07-30] MEDS: BACTRIM DS TABLET PO SCH ×2 (09:26→21:17)
[2017-07-30 19:46] VITALS: O2SAT 94
[2017-07-30] MEDS: Ativan 0.5 MG PO SCH (21:15)
[2017-07-30] MEDS: ZOCOR 20MG PO SCH (21:17)
[2017-07-31 03:38] VITALS: PULSE 73
--- NOTE | 2017-07-31 09:45 | PCM.DS ---
Discharge Summary Date of Admission: 07/29/17 09:38 Admitting Physician: DREW MCDONALD Primary Care Provider: DREW MCDONALD Allergies Allergies No Known Drug Allergies Allergy (Verified 04/29/17 05:25) Hospital Summary - Hospital Course Hospital Course: patient was admitted with abdominal pain, low grade SBO. resolved quickly and doing much better now. was found to have UTI, pansensitive E coli on bactrim. patient had a bowel movement on date of discharge and the date prior, has normal bowel sounds and tolerating full liquid diet. advised to advance diet, back to [facility] this afternoon if tolerates ok - Vitals & Intake/Output Vital Signs: Vital Signs Temperature 97.8 F 07/31/17 08:00 Pulse Rate 73 07/31/17 08:00 Respiratory Rate 16 07/31/17 08:00 Blood Pressure 159/71 07/31/17 08:00 O2 Sat by Pulse Oximetry 94 L 07/31/17 08:00 Oxygen-Last Documented O2 Percentage 2 Liters = 28% Intake & Output: Intake & Output 07/28/17 07/29/17 07/30/17 07/31/17 11:59 11:59 11:59 11:59 Intake Total 3009 1180 Output Total 300 1000 Balance 2709 180 Weight 90.174 kg - Lab Result Diagrams: 07/30/17 05:35 07/30/17 05:35 Discharge Exam General Appearance: no apparent distress, alert Skin Exam: normal color, warm, dry Respiratory Exam: normal breath sounds Cardiovascular Exam: regular rate/rhythm, normal heart sounds Gastrointestinal/Abdomen Exam: soft, No tenderness, No mass Extremity Exam: normal inspection, normal range of motion Final Diagnosis/Problem List - Final Discharge Diagnosis/Problem (1) Small bowel obstruction Current Visit: Yes Status: Acute (2) UTI (urinary tract infection) Current Visit: Yes Status: Acute - Discharge Disposition: DC TO [facility] Condition: Stable Prescriptions: New Smz/Tmp Ds Tablet [Bactrim Ds Tablet] 1 tab PO BID #8 tablet Continue Potassium Chloride 20 Meq Tab [Potassium Chloride 20 MEQ TABLET] 20 meq PO BID Furosemide [Lasix] 40 mg PO DAILY Magnesium Oxide 400 mg [Mag-Ox 400] 800 mg PO BID Docusate Sodium 100 mg [Colace 100 MG] 1 cap PO DAILY Acetaminophen 325 mg [Tylenol 325 mg] 650 mg PO DAILY Acetaminophen 325 mg [Tylenol 325 mg] 650 mg PO HS Atorvastatin Calcium 20 mg PO HS Lorazepam 0.5 mg [Ativan 0.5 MG] 0.25 mg PO HS #15 tablet Escitalopram Oxalate 10 mg [Lexapro 10 MG] 10 mg PO DAILY #30 tablet Pantoprazole 20 mg [Protonix 20MG Tablet] 20 mg PO BID Follow up with: DREW MCDONALD [Primary Care Provider] -
[2017-07-31] MEDS: Protonix 20MG Tablet PO SCH (10:43)
[2017-07-31] MEDS: Klor Con 10 MEQ PO SCH (10:44)
[2017-07-31] MEDS: BACTRIM DS TABLET PO SCH (10:44)
[2017-07-31] MEDS: MAG-OX 400 PO SCH (10:45)
[2017-07-31] MEDS: Lexapro 10 MG PO SCH (10:45)
[2017-07-31] MEDS: Lasix 40 MG PO SCH (10:45)
[2017-07-31] MEDS: TYLENOL 325 MG PO SCH (10:45)
[2017-07-31] MEDS ORDERED: Lantus Insulin SQ SCH (12:06)
[2017-07-31] MEDS ORDERED: NovoLOG Insulin SQ STA (12:09)
[2017-07-31 13:07] VITALS: BP 160/72
== END 2017-07-31 13:30 | DRG 389 ==
LOC: ED 11:45 → MED SURG 16:09 → OBSVTOIN 07-29 09:38
PROVIDERS: ADMIT Family Medicine; ATTEND Family Medicine
DX: K56.609 Unspecified intestinal obstruction, unspecified as to partial versus complete obstruction (principal); N39.0 Urinary tract infection, site not specified; I10 Essential (primary) hypertension; E11.9 Type 2 diabetes mellitus without complications; K21.9 Gastro-esophageal reflux disease without esophagitis; F03.90 Unspecified dementia, unspecified severity, without behavioral disturbance, psychotic disturbance, mood disturbance, and anxiety; Z79.899 Other long term (current) drug therapy
CPT/HCPCS: 36415; 74022; 74176; 80048; 80053; 81000; 83605; 85025; 85027; 87077; 87086; 87186; 99285; G0378; J0696; A9270-GY

== ENCOUNTER 2018-03-27 18:53 | Inpatient (IN) | payer MEDICARE ==
--- NOTE | 2018-03-27 19:41 | ERPHSYRPT ---
- History of Present Illness Time Seen by Provider: 03/27/18 19:35 Historian: patient, EMS, [facility] records Patient Subjective Stated Complaint: AT LUNCH TODAY WAS HAVING SOME ABDOMINAL CRAMPING AND ONE EPISODE OF VOMITING. ALSO HAVING SOME NAUSEA. Triage Nursing Assessment: TO ROOM PER EMS COT. SKIN W/D, COLOR NORMAL, RESP EASY. ABD SOFT, NONTENDER. NORMAL BOWEL SOUNDS. LAST BM WAS YESTERDAY. Physician History: The patient is an 82-year-old female brought in by EMS from a local [facility] complaining that while having lunch today she experienced abdominal cramping and then one episode of vomiting. She still was having some nausea so only had a half a glass of tea for supper. Currently she denies any problems. She states that she would like to go back to the [facility] soon because is her bedtime and she's sleepy. She denies fever or chills. She denies diarrhea. Her past medical history is significant for dementia, high cholesterol, GERD, diabetes, hypertension, and small bowel obstruction. Timing/Duration: today, gradual onset, improved Activities at Onset: none Quality: aching Abdominal Pain Onset Location: epigastric Pain Radiation: no radiation Severity of Pain-Max: mild Severity of Pain-Current: none Modifying Factors: Improves With: vomiting Associated Symptoms: nausea, vomiting, No diarrhea, No fever/chills Previous symptoms: no prior history Allergies/Adverse Reactions: No Known Drug Allergies Allergy (Verified 03/27/18 19:06) Home Medications: Potassium Chloride 20 Meq Tab [Potassium Chloride 20 MEQ TABLET] 20 meq PO BID 10/23/14 [History] Furosemide [Lasix] 40 mg PO DAILY 11/04/14 [History] Magnesium Oxide 400 mg [Mag-Ox 400] 800 mg PO BID 06/03/15 [History] Acetaminophen 325 mg [Tylenol 325 mg] 650 mg PO DAILY 11/26/15 [History] Docusate Sodium 100 mg [Colace 100 MG] 1 cap PO DAILY 11/26/15 [History] Acetaminophen 325 mg [Tylenol 325 mg] 650 mg PO HS 03/28/17 [History] Atorvastatin Calcium 20 mg PO HS 04/29/17 [History] Pantoprazole 20 mg [Protonix 20MG Tablet] 20 mg PO BID 07/28/17 [History] Brimonidine Tartrate/Timolol [Combigan 0.2%-0.5% Eye Drops] 1 drop OP BID [History] Hx Tetanus, Diphtheria Vaccination/Date Given: No Hx Influenza Vaccination/Date Given: Yes Hx Pneumococcal Vaccination/Date Given: Yes - Review of Systems Constitutional: No Fever, No Chills Eyes: No Symptoms Ears, Nose, & Throat: No Symptoms Respiratory: No Cough, No Dyspnea Cardiac: No Chest Pain, No Edema, No Syncope Abdominal/Gastrointestinal: Abdominal Pain, Nausea, Vomiting, No Diarrhea Genitourinary Symptoms: No Dysuria Musculoskeletal: No Back Pain, No Neck Pain Skin: No Rash Neurological: No Dizziness, No Focal Weakness, No Sensory Changes Psychological: No Symptoms Endocrine: No Symptoms Hematologic/Lymphatic: No Symptoms Immunological/Allergic: No Symptoms All Other Systems: Reviewed and Negative - Past Medical History Pertinent Past Medical History: Yes Neurological History: Dementia ENT History: No Pertinent History Cardiac History: High Cholesterol, Hypertension Respiratory History: No Pertinent History Endocrine Medical History: Diabetes Type II Musculoskeletal History: No Pertinent History GI Medical History: GERD, Other History: No Pertinent History Psycho-Social History: No Pertinent History Female Reproductive Disorders: No Pertinent History Other Medical History: post procedural HTN, kidney infections, bowel obstructions & paralytic ileus - Past Surgical History Past Surgical History: Yes Neuro Surgical History: No Pertinent History Cardiac: No Pertinent History Respiratory: No Pertinent History Gastrointestinal: Cholecystectomy Genitourinary: No Pertinent History Musculoskeletal: No Pertinent History Female Surgical History: Hysterectomy Other Surgical History: Tonsils removed as child, son [facility] did a stomach ulcer surgery about a year ago - Social History Smoking Status: Never smoker Exposure to second hand smoke: No Drug Use: none Patient Lives Alone: No - Female History Hx Now: No - Nursing Vital Signs Nursing Vital Signs: Initial Vital Signs Temperature 98.8 F 03/27/18 18:55 Pulse Rate 95 H 03/27/18 18:55 Respiratory Rate 16 03/27/18 18:55 Blood Pressure 165/99 03/27/18 18:55 O2 Sat by Pulse Oximetry 93 L 03/27/18 18:55 Pain Scale Pain Intensity 0 - Physical Exam General Appearance: no apparent distress, alert Eye Exam: PERRL/EOMI, eyes nml inspection Ears, Nose, Throat Exam: normal ENT inspection, pharynx normal, moist mucous membranes Neck Exam: normal inspection, non-tender, supple, full range of motion Respiratory Exam: normal breath sounds, lungs clear, No respiratory distress Cardiovascular Exam: regular rate/rhythm, normal heart sounds Gastrointestinal/Abdomen Exam: soft, normal bowel sounds, No tenderness, No mass Pelvic Exam: not done Rectal Exam: not done Back Exam: normal inspection, normal range of motion, No CVA tenderness, No vertebral tenderness Extremity Exam: normal inspection, normal range of motion, pelvis stable Neurologic Exam: alert, oriented x 3, cooperative, normal mood/affect, nml cerebellar function, sensation nml, No motor deficits Skin Exam: normal color, warm, dry SpO2 Interpretation: normal SpO2: 93 Oxygen Delivery: Room Air - Radiology Exams Abdomen X-ray Interpretation: Interpreted by me, Other (dialated loops of small bowel) - CT Exams Abdomen/Pelvis CT Interpretation: Tele-radiologist Report (per Dr Barker), Other (small bowel obstruction; rectosigmoid wall thickening that may represent malignant rectal meoplasm; right pericardiophrenic mass) Ordered Tests: Active Orders 24 hr Category Date Time Status Cath for Specimen-Straight STAT Care 03/27/18 21:28 Active IV Insertion STAT Care 03/27/18 19:45 Active ABDOMEN AND PELVIS W/0 CONTRAS [CT] Stat Exams 03/28/18 00:33 Taken OBSTR/ACUTE ABDOMEN SERIES Stat Exams 03/27/18 19:46 Taken CBC W DIFF Stat Lab 03/27/18 20:00 Completed CMP Stat Lab 03/27/18 20:00 Completed CULTURE,URINE Stat Lab 03/27/18 21:32 Received LIPASE Stat Lab 03/27/18 20:00 Completed Lactic Acid Stat Lab 03/27/18 20:00 Completed TROPONIN Q3H Lab 03/27/18 20:00 Completed UA W/ MICROSCOPIC Stat Lab 03/27/18 21:32 Completed Medication Summary Discontinued Medications Generic Name Dose Route Start Last Admin Trade Name Freq PRN Reason Stop Dose Admin Famotidine 20 mg 03/27/18 19:45 03/27/18 19:55 Pepcid 20 Mg Vial IV 03/27/18 19:46 20 mg STAT ONE Administration Famotidine Confirm 03/27/18 19:50 Pepcid 20 Mg Vial Administered 03/27/18 19:51 Dose 20 mg IV .STK-MED ONE Sodium Chloride 1,000 mls @ 999 mls/hr 03/27/18 19:45 03/27/18 19:55 Sodium Chloride 0.9% 1000 Ml IV 03/27/18 20:45 999 mls/hr .Q1H1M STA Administration Sodium Chloride Confirm 03/27/18 19:51 Sodium Chloride 0.9% 1000 Ml Administered 03/27/18 19:52 Dose 1,000 mls @ ud .ROUTE .STK-MED ONE Ondansetron HCl 4 mg 03/27/18 19:45 03/27/18 19:55 Zofran 4 Mg/2 Ml Vial IV 03/27/18 19:46 4 mg STAT ONE Administration Ondansetron HCl Confirm 03/27/18 19:50 Zofran 4 Mg/2 Ml Vial Administered 03/27/18 19:51 Dose 4 mg .ROUTE .STK-MED ONE Lab/Rad Data: Laboratory Result Diagrams 03/27/18 20:00 03/27/18 20:00 Laboratory Results 03/27/18 03/27/18 03/27/18 Range/Units 21:32 20:00 20:00 WBC (4.0-10.5) K/mm3 RBC (4.1-5.4) M/mm3 Hgb (12.0-16.0) gm/dl Hct (35-47) % MCV (78-100) fl MCH (26-32) pg MCHC (32-36) g/dl RDW (11.5-14.0) % Plt Count (150-450) K/mm3 MPV (6-9.5) fl Gran % (36.0-66.0) % Eos # (Auto) (0-0.5) Absolute Lymphs (auto) (1.0-4.6) Absolute Monos (auto) (0.0-1.3) Lymphocytes % (24.0-44.0) % Monocytes % (0.0-12.0) % Eosinophils % (0.00-5.0) % Basophils % (0.0-0.4) % Absolute Granulocytes (1.4-6.9) Basophils # (0-0.4) Sodium 140 (137-145) mmol/L Potassium 4.4 (3.5-5.1) mmol/L Chloride 100 (98-107) mmol/L Carbon Dioxide 28 (22-30) mmol/L Anion Gap 15.6 H (5-15) MEQ/L BUN 36 H (7-17) mg/dL Creatinine 1.15 H (0.52-1.04) mg/dL Estimated GFR 48.1 ML/MIN Glucose 161 H (74-106) mg/dL Lactic Acid (0.4-2.0) Calcium 10.2 (8.4-10.2) mg/dL Total Bilirubin 0.50 (0.2-1.3) mg/dL AST 19 (14-36) U/L ALT 14 (0-35) U/L Alkaline Phosphatase 123 (38-126) U/L Troponin I < 0.012 (0.000-0.034) ng/mL Serum Total Protein 7.9 (6.3-8.2) g/dL Albumin 4.7 (3.5-5.0) g/dL Lipase 63 (23-300) U/L Ur Collection Type CATH Urine Color YELLOW (YELLOW) Urine Appearance CLEAR (CLEAR) Urine pH 5.0 (5-6) Ur Specific [place] 1.025 (1.005-1.025) Urine Protein NEGATIVE (Negative) Urine Ketones NEGATIVE (NEGATIVE) Urine Blood 250 (0-5) Santy/ul Urine Nitrite NEGATIVE (NEGATIVE) Urine Bilirubin SMALL (NEGATIVE) Urine Urobilinogen NORMAL (0-1) mg/dL Ur Leukocyte Esterase 1+ (NEGATIVE) Urine Microscopic RBC 15-25 (0-2) /HPF Urine Microscopic WBC 2-5 (0-5) /HPF Ur Epithelial Cells MODERATE (FEW) /HPF Urine Bacteria MODERATE (NEGATIVE) /HPF Hyaline Casts 5-10 (0-2) /LPF Urine Mucus MODERATE (NEGATIVE) /HPF Urine Culture Reflexed YES (NO) Urine Glucose NEGATIVE (NEGATIVE) mg/dL Specimen Received 03/27/18 2130 03/27/18 03/27/18 Range/Units 20:00 20:00 WBC 20.7 H (4.0-10.5) K/mm3 RBC 5.04 (4.1-5.4) M/mm3 Hgb 14.7 (12.0-16.0) gm/dl Hct 44.7 (35-47) % MCV 88.7 (78-100) fl MCH 29.2 (26-32) pg MCHC 32.9 (32-36) g/dl RDW 13.9 (11.5-14.0) % Plt Count 319 (150-450) K/mm3 MPV 8.7 (6-9.5) fl Gran % 88.9 H (36.0-66.0) % Eos # (Auto) 0.05 (0-0.5) Absolute Lymphs (auto) 1.43 (1.0-4.6) Absolute Monos (auto) 0.76 (0.0-1.3) Lymphocytes % 6.9 L (24.0-44.0) % Monocytes % 3.7 (0.0-12.0) % Eosinophils % 0.2 (0.00-5.0) % Basophils % 0.3 (0.0-0.4) % Absolute Granulocytes 18.44 H (1.4-6.9) Basophils # 0.06 (0-0.4) Sodium (137-145) mmol/L Potassium (3.5-5.1) mmol/L Chloride (98-107) mmol/L Carbon Dioxide (22-30) mmol/L Anion Gap (5-15) MEQ/L BUN (7-17) mg/dL Creatinine (0.52-1.04) mg/dL Estimated GFR ML/MIN Glucose (74-106) mg/dL Lactic Acid 1.2 (0.4-2.0) Calcium (8.4-10.2) mg/dL Total Bilirubin (0.2-1.3) mg/dL AST (14-36) U/L ALT (0-35) U/L Alkaline Phosphatase (38-126) U/L Troponin I (0.000-0.034) ng/mL Serum Total Protein (6.3-8.2) g/dL Albumin (3.5-5.0) g/dL Lipase (23-300) U/L Ur Collection Type Urine Color (YELLOW) Urine Appearance (CLEAR) Urine pH (5-6) Ur Specific [place] (1.005-1.025) Urine Protein (Negative) Urine Ketones (NEGATIVE) Urine Blood (0-5) Santy/ul Urine Nitrite (NEGATIVE) Urine Bilirubin (NEGATIVE) Urine Urobilinogen (0-1) mg/dL Ur Leukocyte Esterase (NEGATIVE) Urine Microscopic RBC (0-2) /HPF Urine Microscopic WBC (0-5) /HPF Ur Epithelial Cells (FEW) /HPF Urine Bacteria (NEGATIVE) /HPF Hyaline Casts (0-2) /LPF Urine Mucus (NEGATIVE) /HPF Urine Culture Reflexed (NO) Urine Glucose (NEGATIVE) mg/dL Specimen Received - Progress Progress: unchanged Discussed with Dr.: Salvador (for Fernando Isbell (Hernando Deluca will see pt in AM) Counseled pt/family regarding: lab results, diagnosis, rad results - Departure Time of Disposition: 01:52 Departure Disposition: In-patient Admission (Dr Franco for Dr Brown. Dr Hernando Deluca to see pt in AM.) Clinical Impression: Small bowel obstruction Condition: Good Critical Care Time: No Referrals: SHWETA PEREZ [Primary Care Provider] -
[2018-03-27] MEDS ORDERED: Zofran 4 MG/2 ML VIAL IV ONE (19:45)
[2018-03-27] MEDS ORDERED: Pepcid 20 MG VIAL IV ONE ×2 (19:45→19:50)
[2018-03-27] MEDS ORDERED: Sodium Chloride 0.9% 1000 ML 1,000 ML IV STA (19:45)
[2018-03-27] MEDS ORDERED: Zofran 4 MG/2 ML VIAL ONE (19:50)
[2018-03-27] MEDS ORDERED: Sodium Chloride 0.9% 1000 ML 1,000 ML ONE (19:51)
[2018-03-27 20:08] LABS: BASOPHIL % 0.3 % (0.0-0.4); Basophil (Absolute #) 0.06 (0-0.4); Eosinophil % 0.2 % (0.00-5.0); Eosinophil (Absolute #) 0.05 (0-0.5); Granulocyte Absolute (ANC) 18.44 (1.4-6.9); Granulocytes % 88.9 % (36.0-66.0); Hematocrit 44.7 % (35-47); Hemoglobin 14.7 gm/dl (12.0-16.0); Lymphocyte (Absolute #) 1.43 (1.0-4.6); Lymphocytes % 6.9 % (24.0-44.0); Mean Cell Volume 88.7 fl (78-100); Mean Corpuscular Hemoglobin 29.2 pg (26-32); Mean Corpuscular Hgb Concent. 32.9 g/dl (32-36); Mean Platelet Volume 8.7 fl (6-9.5); Monocyte (Absolute #) 0.76 (0.0-1.3); Monocytes % 3.7 % (0.0-12.0); Platelet Count 319 K/mm3 (150-450); Red Blood Count 5.04 M/mm3 (4.1-5.4); Red Cell Distribution Width 13.9 % (11.5-14.0); White Blood Count 20.7 K/mm3 (4.0-10.5)
[2018-03-27 20:31] LABS: ALBUMIN 4.7 g/dL (3.5-5.0); ANION GAP 15.6 MEQ/L (5-15); BILIRUBIN,TOTAL 0.5 mg/dL (0.2-1.3); Calcium 10.2 mg/dL (8.4-10.2); Creatinine 1 1.15 mg/dL (0.52-1.04); Potassium 4.4 mmol/L (3.5-5.1); Total Protein 7.9 g/dL (6.3-8.2)
[2018-03-27 21:47] LABS: Appearance CLEAR (CLEAR); Bilirubin SMALL (NEGATIVE); Blood 250 Ery/ul (0-5); Glucose NEGATIVE (NEGATIVE); Ketones NEGATIVE (NEGATIVE); Leukocyte Esterase 1+ (NEGATIVE); Nitrite NEGATIVE (NEGATIVE); Protein,Urine Dip NEGATIVE (Negative); Specific Gravity 1.025 (1.005-1.025); Urobilinogen NORMAL mg/dL (0-1)
[2018-03-27 21:48] LABS: Bacteria MODERATE /HPF (NEGATIVE); Epithelial Cells MODERATE /HPF (FEW); Mucus MODERATE /HPF (NEGATIVE); RBC 15-25 /HPF (0-2)
[2018-03-28] MEDS ORDERED: Zofran 4 MG/2 ML VIAL IV PRN (03:21)
[2018-03-28] MEDS ORDERED: Sodium Chloride 0.9% 1000 ML 1,000 ML IV SCH (03:21)
[2018-03-28] MEDS ORDERED: MORPHINE SULFATE 2 MG INJ IV PRN (03:21)
[2018-03-28] MEDS ORDERED: Sodium Chloride 0.9% 1000 ML 1,000 ML ONE (03:25)
--- NOTE | 2018-03-28 08:29 | PCM.HP ---
History of Present Illness - Chief Complaint Chief Complaint: small bowel obstruction Date: 03/28/18 History of Present Illness: is a 82 year old female. who suffers from dementia living at [facility] and has history of recurrent small bowel obstructions. She had episode of abdominal pain and vomiting after lunch yesterday and was not feeling well all afternoon was sweating and refusing dinner so was sent to ED and found to have partial small bowel obstruction. She did not have ng placed at that time. This am she says she has no pain and is hungry. Her last bm was yesterday. She does not know if she passes gas. she denies any nausea. - Review of Systems Constitutional: Chills, No Fever Eyes: No Symptoms Ears, Nose, & Throat: No Symptoms Respiratory: No Cough, No Short Of Breath Cardiac: No Chest Pain, No Edema, No Syncope Abdominal/Gastrointestinal: No Abdominal Pain, No Nausea, No Vomiting, No Diarrhea Genitourinary Symptoms: No Dysuria Musculoskeletal: No Back Pain, No Neck Pain Skin: No Rash Neurological: No Dizziness, No Focal Weakness, No Sensory Changes Psychological: No Symptoms Endocrine: No Symptoms Hematologic/Lymphatic: No Symptoms Immunological/Allergic: No Symptoms Medications & Allergies Home Medications: Home Medication List Potassium Chloride 20 Meq Tab [Potassium Chloride 20 MEQ TABLET] 20 meq PO BID 10/23/14 [History Confirmed 03/27/18] Furosemide [Lasix] 40 mg PO DAILY 11/04/14 [History Confirmed 03/27/18] Magnesium Oxide 400 mg [Mag-Ox 400] 800 mg PO BID 06/03/15 [History Confirmed 03/27/18] Acetaminophen 325 mg [Tylenol 325 mg] 650 mg PO DAILY 11/26/15 [History Confirmed 03/27/18] Docusate Sodium 100 mg [Colace 100 MG] 1 cap PO DAILY 11/26/15 [History Confirmed 03/27/18] Acetaminophen 325 mg [Tylenol 325 mg] 650 mg PO HS 03/28/17 [History Confirmed 03/27/18] Atorvastatin Calcium 20 mg PO HS 04/29/17 [History Confirmed 03/27/18] Escitalopram Oxalate 10 mg [Lexapro 10 MG] 10 mg PO DAILY #30 tablet [Rx Confirmed 03/27/18] Lorazepam 0.5 mg [Ativan 0.5 MG] 0.25 mg PO HS #15 tablet 05/02/17 [Rx Confirmed 03/27/18] Pantoprazole 20 mg [Protonix 20MG Tablet] 20 mg PO BID 07/28/17 [History Confirmed 03/27/18] Smz/Tmp Ds Tablet [Bactrim Ds Tablet] 1 tab PO BID #8 tablet 07/31/17 [Rx Confirmed 03/27/18] Brimonidine Tartrate/Timolol [Combigan 0.2%-0.5% Eye Drops] 1 drop OP BID [History Confirmed 03/27/18] Acetaminophen 325 mg [Tylenol 325 mg] 650 mg PO Q4HPRN PRN 03/28/18 [ History Confirmed 03/28/18] Sodium Phosphate,Owen-Dibasic [Enema] 1 applic [place] DIRECTIONS UNKNOWN PRN [History Confirmed 03/28/18] Allergies/Adverse Reactions: Allergies Allergy/AdvReac Type Severity Reaction Status Date / Time No Known Drug Allergies Allergy Verified 03/27/18 19:06 - Past Medical History Past Medical History: Yes Neurological History: Dementia ENT History: No Pertinent History Cardiac History: High Cholesterol, Hypertension Respiratory History: No Pertinent History Endocrine Medical History: Diabetes Type II Musculoskelatal History: No Pertinent History GI Medical History: GERD, Other History: No Pertinent History Pyscho-Social History: No Pertinent History Reproductive Disorders: No Pertinent History Comment: post procedural HTN, kidney infections, bowel obstructions & paralytic ileus. recalled from previous stay, pt confused - Female History Are you now?: No - Past Surgical History Past Surgical History: Yes Neuro Surgical History: No Pertinent History Cardiac History: No Pertinent History Respiratory Surgery: No Pertinent History GI Surgical History: Cholecystectomy Genitourinary Surgical Hx: No Pertinent History Musculskeletal Surgical Hx: No Pertinent History Female Surgical History: Hysterectomy Other Surgical History: Tonsils removed as child, son states [facility] did a stomach ulcer surgery about a year ago - Social History Smoking Status: Never smoker Exposure to second hand smoke: No Alcohol: None Drug Use: none - Physical Exam Vital Signs: Vital Signs - 24 hr Temp Pulse Resp BP Pulse Ox 03/28/18 07:50 97 03/28/18 07:10 99.0 F 84 16 141/63 97 03/28/18 03:33 98.5 F 90 18 133/63 90 L 03/28/18 02:40 93 L 03/28/18 02:26 104 H 18 146/80 93 L 03/28/18 02:04 84 20 130/95 94 L 03/28/18 00:20 87 18 171/101 93 L 03/27/18 22:30 76 18 176/81 92 L 03/27/18 21:12 88 16 161/77 93 L 03/27/18 20:23 86 16 152/81 94 L 03/27/18 19:44 94 H 152/81 94 L 03/27/18 18:55 98.8 F 95 H 16 165/99 93 L Oxygen-Last 24 hours O2 Percentage 2 Liters = 28% General Appearance: no apparent distress, alert, obese Neurologic Exam: alert, oriented x 3, cooperative, normal mood/affect, nml cerebellar function, nml station & gait, sensation nml, No motor deficits Eye Exam: PERRL/EOMI, eyes nml inspection Ears, Nose, Throat Exam: normal ENT inspection, pharynx normal, moist mucous membranes Neck Exam: normal inspection, non-tender, supple, full range of motion Respiratory Exam: normal breath sounds, lungs clear, No respiratory distress Cardiovascular Exam: regular rate/rhythm, normal heart sounds, normal peripheral pulses Gastrointestinal/Abdomen Exam: soft, normal bowel sounds, No tenderness, No mass Back Exam: normal inspection, normal range of motion, No CVA tenderness, No vertebral tenderness Extremity Exam: normal inspection, normal range of motion, pelvis stable Skin Exam: normal color, warm, dry, No rash Lymphatic Exam: No adenopathy Results - Labs Lab/Micro Results: Lab Results-Last 24 Hours 03/27/18 03/27/18 03/27/18 Range/Units 20:00 20:00 20:00 WBC 20.7 H (4.0-10.5) K/mm3 RBC 5.04 (4.1-5.4) M/mm3 Hgb 14.7 (12.0-16.0) gm/dl Hct 44.7 (35-47) % MCV 88.7 (78-100) fl MCH 29.2 (26-32) pg MCHC 32.9 (32-36) g/dl RDW 13.9 (11.5-14.0) % Plt Count 319 (150-450) K/mm3 MPV 8.7 (6-9.5) fl Gran % 88.9 H (36.0-66.0) % Eos # (Auto) 0.05 (0-0.5) Absolute Lymphs (auto) 1.43 (1.0-4.6) Absolute Monos (auto) 0.76 (0.0-1.3) Lymphocytes % 6.9 L (24.0-44.0) % Monocytes % 3.7 (0.0-12.0) % Eosinophils % 0.2 (0.00-5.0) % Basophils % 0.3 (0.0-0.4) % Absolute Granulocytes 18.44 H (1.4-6.9) Basophils # 0.06 (0-0.4) Sodium 140 (137-145) mmol/L Potassium 4.4 (3.5-5.1) mmol/L Chloride 100 (98-107) mmol/L Carbon Dioxide 28 (22-30) mmol/L Anion Gap 15.6 H (5-15) MEQ/L BUN 36 H (7-17) mg/dL Creatinine 1.15 H (0.52-1.04) mg/dL Estimated GFR 48.1 ML/MIN Glucose 161 H (74-106) mg/dL Lactic Acid 1.2 (0.4-2.0) Calcium 10.2 (8.4-10.2) mg/dL Total Bilirubin 0.50 (0.2-1.3) mg/dL AST 19 (14-36) U/L ALT 14 (0-35) U/L Alkaline Phosphatase 123 (38-126) U/L Troponin I (0.000-0.034) ng/mL Serum Total Protein 7.9 (6.3-8.2) g/dL Albumin 4.7 (3.5-5.0) g/dL Lipase 63 (23-300) U/L Ur Collection Type Urine Color (YELLOW) Urine Appearance (CLEAR) Urine pH (5-6) Ur Specific [place] (1.005-1.025) Urine Protein (Negative) Urine Ketones (NEGATIVE) Urine Blood (0-5) Santy/ul Urine Nitrite (NEGATIVE) Urine Bilirubin (NEGATIVE) Urine Urobilinogen (0-1) mg/dL Ur Leukocyte Esterase (NEGATIVE) Urine Microscopic RBC (0-2) /HPF Urine Microscopic WBC (0-5) /HPF Ur Epithelial Cells (FEW) /HPF Urine Bacteria (NEGATIVE) /HPF Hyaline Casts (0-2) /LPF Urine Mucus (NEGATIVE) /HPF Urine Culture Reflexed (NO) Urine Glucose (NEGATIVE) mg/dL Specimen Received 03/27/18 03/27/18 Range/Units 20:00 21:32 WBC (4.0-10.5) K/mm3 RBC (4.1-5.4) M/mm3 Hgb (12.0-16.0) gm/dl Hct (35-47) % MCV (78-100) fl MCH (26-32) pg MCHC (32-36) g/dl RDW (11.5-14.0) % Plt Count (150-450) K/mm3 MPV (6-9.5) fl Gran % (36.0-66.0) % Eos # (Auto) (0-0.5) Absolute Lymphs (auto) (1.0-4.6) Absolute Monos (auto) (0.0-1.3) Lymphocytes % (24.0-44.0) % Monocytes % (0.0-12.0) % Eosinophils % (0.00-5.0) % Basophils % (0.0-0.4) % Absolute Granulocytes (1.4-6.9) Basophils # (0-0.4) Sodium (137-145) mmol/L Potassium (3.5-5.1) mmol/L Chloride (98-107) mmol/L Carbon Dioxide (22-30) mmol/L Anion Gap (5-15) MEQ/L BUN (7-17) mg/dL Creatinine (0.52-1.04) mg/dL Estimated GFR ML/MIN Glucose (74-106) mg/dL Lactic Acid (0.4-2.0) Calcium (8.4-10.2) mg/dL Total Bilirubin (0.2-1.3) mg/dL AST (14-36) U/L ALT (0-35) U/L Alkaline Phosphatase (38-126) U/L Troponin I < 0.012 (0.000-0.034) ng/mL Serum Total Protein (6.3-8.2) g/dL Albumin (3.5-5.0) g/dL Lipase (23-300) U/L Ur Collection Type CATH Urine Color YELLOW (YELLOW) Urine Appearance CLEAR (CLEAR) Urine pH 5.0 (5-6) Ur Specific [place] 1.025 (1.005-1.025) Urine Protein NEGATIVE (Negative) Urine Ketones NEGATIVE (NEGATIVE) Urine Blood 250 (0-5) Santy/ul Urine Nitrite NEGATIVE (NEGATIVE) Urine Bilirubin SMALL (NEGATIVE) Urine Urobilinogen NORMAL (0-1) mg/dL Ur Leukocyte Esterase 1+ (NEGATIVE) Urine Microscopic RBC 15-25 (0-2) /HPF Urine Microscopic WBC 2-5 (0-5) /HPF Ur Epithelial Cells MODERATE (FEW) /HPF Urine Bacteria MODERATE (NEGATIVE) /HPF Hyaline Casts 5-10 (0-2) /LPF Urine Mucus MODERATE (NEGATIVE) /HPF Urine Culture Reflexed YES (NO) Urine Glucose NEGATIVE (NEGATIVE) mg/dL Specimen Received 03/27/18 4730 - Radiology Impressions Radiology Exams & Impressions: Radiology Procedures Category Date Time Status ABDOMEN 2 VIEW Routine Exams 03/28/18 15:00 Ordered ABDOMEN AND PELVIS W/0 CONTRAS [CT] Stat Exams 03/28/18 00:33 Taken OBSTR/ACUTE ABDOMEN SERIES Stat Exams 03/27/18 19:46 Taken - Other Procedures and Tests Respiratory Therapy 03/28/18 06:42 Oxygen NASAL CANNULA 2 lpm Respiratory Therapy Assessment DAILY Assessment/Plan (1) Small bowel obstruction, partial Current Visit: Yes Status: Acute Assessment & Plan: she has recurrent small bowel obstruction but was not seen as surgical candidate in the past. She usually quickly resolves with ng and diet restriction she did not have ng placed last night and this am has no abdominal pain or tenderness and normal bowel sound and denies nausea. She had the leukocytossis and is a poor historian with her dementia. It has been 8 months since her last episode. she currently refuses the ng however we can probably suggest it if she has any increased symptoms this will likely expedite her healing. with her improved symptoms already however will leave npo and repeat xray this afternoon monitor for bm or worsening symptoms. in distant past it looks like she had slightly abnormal thyroid levels will repeat this Code(s): K56.600 - PARTIAL INTESTINAL OBSTRUCTION, UNSPECIFIED TO CAUSE (2) Dementia Current Visit: Yes Status: Chronic Code(s): F03.90 - UNSPECIFIED DEMENTIA WITHOUT BEHAVIORAL DISTURBANCE (3) HTN (hypertension) Current Visit: Yes Status: Chronic Code(s): I10 - ESSENTIAL (PRIMARY) HYPERTENSION
[2018-03-28] MEDS ORDERED: TYLENOL 325 MG PO PRN (08:52)
[2018-03-28] MEDS ORDERED: MEDICATION INTERVENTION MC SCH (09:30)
--- NOTE | 2018-03-28 09:46 | XRAY ---
Indication: Abdominal pain, nausea, and vomiting. Multiple contiguous axial images obtained through the abdomen and pelvis without contrast as ordered. Comparison: July 28, 2017. Lung bases again demonstrates bibasilar fibrosis/scarring. No infiltrate or effusion. Heart is not enlarged. Stable moderate hiatal hernia with partial intrathoracic stomach. Stomach is mildly fluid distended with a few intraluminal medication/pills. Small bowel loops are again abnormally fluid distended today up to 4.5 cm. Transition point seen infraumbilical midline concerning for partial small bowel obstruction. No free fluid/air. Again previous appendectomy, hysterectomy, and cholecystectomy. Colon is mildly fluid distended with stable scattered diverticulosis. Remaining liver, pancreas, spleen, adrenal glands, kidneys, ureters, and bladder appear unremarkable for noncontrast exam. Stable heavy aortoiliac calcifications without AAA. Osseous structures intact again with mild degenerative changes throughout the spine and mild scoliosis. No ventral or inguinal hernias. Impression: 1. Again abnormal fluid distended small bowel loops with transition point in the anterior mid abdomen concerning for partial small bowel obstruction. 2. Stable hiatal hernia and colonic diverticulosis. Comment: Preliminary interpretation was made by [facility]. No critical discrepancy. CT DI 27.93
--- NOTE | 2018-03-28 09:50 | XRAY ---
Indication: Abdominal pain, nausea, and vomiting. Comparison: July 28, 2017. 2 views of the abdomen again demonstrates small and large bowel air-fluid leveling. No focal bowel dilatation or free air. Solid organs unremarkable. Osseous structures intact again with osteopenia, degenerative changes, and scoliosis. Single AP chest demonstrates stable left costophrenic angle and right apical fibrosis/scarring. No focal infiltrate, consolidation, or large effusion. Heart is not enlarged. Bony thorax intact again with mild osteopenia and degenerative changes. Impression: 1. Again small and large bowel air-fluid leveling. See same-day CT abdomen/pelvis exam. 2. Stable nonacute 1 view chest with chronic features.
[2018-03-28] MEDS ORDERED: NON-FORMULARY ITEM (Brimonidine Tartrate/Timolol [Combigan 0.2%-0.5% Eye Drops] 1 DROP) OP SCH (10:00)
[2018-03-28] MEDS: MAG-OX 400 PO SCH ×2 (10:38→22:15)
[2018-03-28] MEDS: PROTONIX 40 MG IV IV SCH (10:39)
[2018-03-28] MEDS: Colace 100 MG PO SCH (10:39)
[2018-03-28] MEDS: Lexapro 10 MG PO SCH (10:39)
[2018-03-28] MEDS: Lasix 40 MG PO SCH (10:39)
[2018-03-28] MEDS: TYLENOL 325 MG PO SCH ×2 (10:39→22:15)
[2018-03-28] MEDS: D5W/0.45NS W/ 20mEq KCl 1000 ML 1,000 ML IV SCH ×2 (10:41→21:06)
[2018-03-28 13:17] LABS: BASOPHIL % 0.1 % (0.0-0.4); Basophil (Absolute #) 0.02 (0-0.4); Eosinophil % 0.9 % (0.00-5.0); Eosinophil (Absolute #) 0.15 (0-0.5); Granulocyte Absolute (ANC) 12.24 (1.4-6.9); Granulocytes % 76.5 % (36.0-66.0); Hematocrit 36.1 % (35-47); Hemoglobin 11.8 gm/dl (12.0-16.0); Lymphocyte (Absolute #) 2.25 (1.0-4.6); Mean Cell Volume 90.5 fl (78-100); Mean Corpuscular Hgb Concent. 32.7 g/dl (32-36); Mean Platelet Volume 8.8 fl (6-9.5); Monocyte (Absolute #) 1.36 (0.0-1.3); Monocytes % 8.5 % (0.0-12.0); Platelet Count 278 K/mm3 (150-450); Red Blood Count 3.99 M/mm3 (4.1-5.4); Red Cell Distribution Width 13.8 % (11.5-14.0)
[2018-03-28 13:19] LABS: Mean Corpuscular Hemoglobin 29.5 pg (26-32)
[2018-03-28 13:47] LABS: Calcium 7.8 mg/dL (8.4-10.2); Creatinine 1 1.06 mg/dL (0.52-1.04); Potassium 3.7 mmol/L (3.5-5.1)
--- NOTE | 2018-03-28 15:42 | XRAY ---
Indication: Follow-up small bowel obstruction. Uncontrollable bowel movements. Comparison: Taken one day earlier. 2 views of the abdomen demonstrates slight increasing air distended small/large bowel loops again with fluid leveling now obscuring solid organs. No focal bowel dilatation or free air. Osseous structures again demonstrates osteopenia, degenerative changes, scoliosis. Impression: Slight worsening small/large bowel air fluid leveling again without focal dilatation.
[2018-03-28] MEDS ORDERED: NON-FORMULARY ITEM (Atorvastatin Calcium [Atorvastatin Calcium] 20 MG) PO SCH (22:00)
[2018-03-28] MEDS: ZOCOR 20MG PO SCH (22:14)
[2018-03-28] MEDS: Ativan 0.5 MG PO SCH (22:15)
[2018-03-29 05:49] LABS: BASOPHIL % 0.3 % (0.0-0.4); Basophil (Absolute #) 0.03 (0-0.4); Eosinophil % 1.9 % (0.00-5.0); Granulocyte Absolute (ANC) 7.34 (1.4-6.9); Granulocytes % 68.6 % (36.0-66.0); Hematocrit 35.3 % (35-47); Hemoglobin 11.2 gm/dl (12.0-16.0); Lymphocyte (Absolute #) 2.43 (1.0-4.6); Lymphocytes % 22.7 % (24.0-44.0); Mean Cell Volume 91.9 fl (78-100); Mean Corpuscular Hgb Concent. 31.7 g/dl (32-36); Mean Platelet Volume 8.9 fl (6-9.5); Monocytes % 6.5 % (0.0-12.0); Platelet Count 258 K/mm3 (150-450); Red Blood Count 3.84 M/mm3 (4.1-5.4); White Blood Count 10.7 K/mm3 (4.0-10.5)
[2018-03-29 05:58] LABS: Mean Corpuscular Hemoglobin 29.1 pg (26-32)
[2018-03-29 06:03] LABS: ANION GAP 9.5 MEQ/L (5-15); BLOOD UREA NITROGEN 24 mg/dL (7-17); CHLORIDE 107 mmol/L (98-107); Calcium 7.8 mg/dL (8.4-10.2); Carbon Dioxide 28 mmol/L (22-30); Creatinine 1 0.92 mg/dL (0.52-1.04); Glucose 135 mg/dL (74-106); Potassium 3.6 mmol/L (3.5-5.1); SODIUM 141 mmol/L (137-145)
[2018-03-29 06:33] LABS: TSH, 3RD Generation 1.8 mIU/L (0.47-4.68)
[2018-03-29] MEDS: D5W/0.45NS W/ 20mEq KCl 1000 ML 1,000 ML IV SCH ×2 (07:00→17:12)
--- NOTE | 2018-03-29 08:28 | PCM.NOTE ---
Date and Time: 03/29/18825 Subjective Assessment: feeling well has had 2 BM now and no abdominal pain or nausea she is hungry currently. no vomiting hx limited by her dementia she doesn't recall when she was admitted or when her bowel movement was just thinks she had one Objective Exam General Appearance: obese Neurologic Exam: alert, oriented x 3, cooperative Skin Exam: warm, dry Ears, Nose, Throat Exam: moist mucous membranes Neck Exam: non-tender, supple Respiratory Exam: normal breath sounds, lungs clear Cardiovascular Exam: regular rate/rhythm, normal heart sounds Gastrointestinal/Abdomen Exam: soft, normal bowel sounds, No tenderness, No distention, No mass, No guarding Extremity Exam: normal inspection, No calf tenderness, No pedal edema OBJECTIVE DATA Vital Signs: Vital Signs - 24 hr Temp Pulse Resp BP Pulse Ox 03/29/18 07:22 98.3 F 89 22 171/74 95 03/29/18 04:00 98.7 F 75 18 144/64 94 L 03/29/18 00:00 97.9 F 75 17 111/56 93 L 03/28/18 20:10 90 L 03/28/18 20:00 98.0 F 94 H 20 154/64 92 L 03/28/18 16:00 98.9 F 86 16 154/67 90 L 03/28/18 11:27 98.5 F 73 16 144/64 96 Oxygen-Last 24 hours O2 Percentage 2 Liters = 28% Pain Assessment - Last Documented Pain Intensity 7 Pain Scale Used FLACC Intake and Output: Intake & Output 03/26/18 03/27/18 03/28/18 03/29/18 11:59 11:59 11:59 11:59 Intake Total 0 936 Balance 0 936 Weight 103.4 kg Lab Results: Lab Results-Last 24 Hours 03/28/18 03/28/18 03/29/18 Range/Units 12:43 12:43 05:43 WBC 16.0 H 10.7 H (4.0-10.5) K/mm3 RBC 3.99 L 3.84 L (4.1-5.4) M/mm3 Hgb 11.8 L 11.2 L (12.0-16.0) gm/dl Hct 36.1 35.3 (35-47) % MCV 90.5 91.9 (78-100) fl MCH 29.5 29.1 (26-32) pg MCHC 32.7 31.7 L (32-36) g/dl RDW 13.8 14.0 (11.5-14.0) % Plt Count 278 258 (150-450) K/mm3 MPV 8.8 8.9 (6-9.5) fl Gran % 76.5 H 68.6 H (36.0-66.0) % Eos # (Auto) 0.15 0.20 (0-0.5) Absolute Lymphs (auto) 2.25 2.43 (1.0-4.6) Absolute Monos (auto) 1.36 H 0.70 (0.0-1.3) Lymphocytes % 14.0 L 22.7 L (24.0-44.0) % Monocytes % 8.5 6.5 (0.0-12.0) % Eosinophils % 0.9 1.9 (0.00-5.0) % Basophils % 0.1 0.3 (0.0-0.4) % Absolute Granulocytes 12.24 H 7.34 H (1.4-6.9) Basophils # 0.02 0.03 (0-0.4) Sodium 140 (137-145) mmol/L Potassium 3.7 (3.5-5.1) mmol/L Chloride 104 (98-107) mmol/L Carbon Dioxide 26 (22-30) mmol/L Anion Gap 14.0 (5-15) MEQ/L BUN 35 H (7-17) mg/dL Creatinine 1.06 H (0.52-1.04) mg/dL Estimated GFR 52.9 ML/MIN Glucose 130 H (74-106) mg/dL Calcium 7.8 L (8.4-10.2) mg/dL Magnesium (1.6-2.3) mg/dL TSH 3rd Generation (0.47-4.68) mIU/L 03/29/18 03/29/18 Range/Units 05:43 05:43 WBC (4.0-10.5) K/mm3 RBC (4.1-5.4) M/mm3 Hgb (12.0-16.0) gm/dl Hct (35-47) % MCV (78-100) fl MCH (26-32) pg MCHC (32-36) g/dl RDW (11.5-14.0) % Plt Count (150-450) K/mm3 MPV (6-9.5) fl Gran % (36.0-66.0) % Eos # (Auto) (0-0.5) Absolute Lymphs (auto) (1.0-4.6) Absolute Monos (auto) (0.0-1.3) Lymphocytes % (24.0-44.0) % Monocytes % (0.0-12.0) % Eosinophils % (0.00-5.0) % Basophils % (0.0-0.4) % Absolute Granulocytes (1.4-6.9) Basophils # (0-0.4) Sodium 141 (137-145) mmol/L Potassium 3.6 (3.5-5.1) mmol/L Chloride 107 (98-107) mmol/L Carbon Dioxide 28 (22-30) mmol/L Anion Gap 9.5 (5-15) MEQ/L BUN 24 H (7-17) mg/dL Creatinine 0.92 (0.52-1.04) mg/dL Estimated GFR > 60.0 ML/MIN Glucose 135 H (74-106) mg/dL Calcium 7.8 L (8.4-10.2) mg/dL Magnesium 1.9 (1.6-2.3) mg/dL TSH 3rd Generation 1.800 (0.47-4.68) mIU/L Radiology Exams: Radiology Procedures Category Date Time Status ABDOMEN 2 VIEW Routine Exams 03/28/18 15:00 Completed ABDOMEN AND PELVIS W/0 CONTRAS [CT] Stat Exams 03/28/18 00:33 Completed OBSTR/ACUTE ABDOMEN SERIES Stat Exams 03/27/18 19:46 Completed Assessment/Plan (1) Small bowel obstruction, partial Current Visit: Yes Status: Acute Assessment & Plan: improving advance diet as tolerated back to millers when tolerating po well Code(s): K56.600 - PARTIAL INTESTINAL OBSTRUCTION, UNSPECIFIED TO CAUSE (2) Dementia Current Visit: Yes Status: Chronic Code(s): F03.90 - UNSPECIFIED DEMENTIA WITHOUT BEHAVIORAL DISTURBANCE (3) HTN (hypertension) Current Visit: Yes Status: Chronic Code(s): I10 - ESSENTIAL (PRIMARY) HYPERTENSION
[2018-03-29] MEDS: Lasix 40 MG PO SCH (09:04)
[2018-03-29] MEDS: Colace 100 MG PO SCH (09:04)
[2018-03-29] MEDS: MAG-OX 400 PO SCH ×2 (09:05→22:39)
[2018-03-29] MEDS: PROTONIX 40 MG IV IV SCH (09:05)
[2018-03-29] MEDS: Lexapro 10 MG PO SCH (09:05)
[2018-03-29] MEDS: TYLENOL 325 MG PO SCH ×2 (09:05→22:38)
[2018-03-29] MEDS: Ativan 0.5 MG PO SCH (22:39)
[2018-03-29] MEDS: ZOCOR 20MG PO SCH (22:39)
[2018-03-30] MEDS: D5W/0.45NS W/ 20mEq KCl 1000 ML 1,000 ML IV SCH (04:10)
[2018-03-30 05:27] LABS: Hematocrit 34.4 % (35-47); Hemoglobin 10.9 gm/dl (12.0-16.0); Mean Corpuscular Hgb Concent. 31.7 g/dl (32-36); Mean Platelet Volume 8.6 fl (6-9.5); Platelet Count 252 K/mm3 (150-450); Red Cell Distribution Width 13.8 % (11.5-14.0); White Blood Count 8.3 K/mm3 (4.0-10.5)
[2018-03-30 05:33] LABS: Mean Corpuscular Hemoglobin 29.4 pg (26-32)
[2018-03-30 05:51] LABS: ANION GAP 9.6 MEQ/L (5-15); BLOOD UREA NITROGEN 11 mg/dL (7-17); CHLORIDE 107 mmol/L (98-107); Calcium 8.1 mg/dL (8.4-10.2); Carbon Dioxide 31 mmol/L (22-30); Creatinine 1 0.79 mg/dL (0.52-1.04); Glucose 122 mg/dL (74-106); SODIUM 144 mmol/L (137-145)
[2018-03-30 07:44] VITALS: BP 151/71; PULSE 77; O2SAT 94
--- NOTE | 2018-03-30 08:03 | PCM.DCORD ---
- Discharge Discharge Date: 03/30/18 Disposition: DC TO [facility] Condition: Good Prescriptions: New Ciprofloxacin HCl [Cipro] 250 mg PO BID #10 tablet Continue Potassium Chloride 20 Meq Tab [Potassium Chloride 20 MEQ TABLET] 20 meq PO BID Furosemide [Lasix] 40 mg PO DAILY Magnesium Oxide 400 mg [Mag-Ox 400] 800 mg PO BID Docusate Sodium 100 mg [Colace 100 MG] 1 cap PO DAILY Acetaminophen 325 mg [Tylenol 325 mg] 650 mg PO DAILY Acetaminophen 325 mg [Tylenol 325 mg] 650 mg PO HS Atorvastatin Calcium 20 mg PO HS Lorazepam 0.5 mg [Ativan 0.5 MG] 0.25 mg PO HS #15 tablet Escitalopram Oxalate 10 mg [Lexapro 10 MG] 10 mg PO DAILY #30 tablet Pantoprazole 20 mg [Protonix 20MG Tablet] 20 mg PO BID Brimonidine Tartrate/Timolol [Combigan 0.2%-0.5% Eye Drops] 1 drop OP BID Acetaminophen 325 mg [Tylenol 325 mg] 650 mg PO Q4HPRN PRN PRN Reason: Pain And/Or Fever Sodium Phosphate,[place]-Dibasic [Enema] 1 applic [place] DIRECTIONS UNKNOWN PRN PRN Reason: Constipation Discontinued Smz/Tmp Ds Tablet [Bactrim Ds Tablet] 1 tab PO BID #8 tablet Follow up with: SHWETA PEREZ [Primary Care Provider] - 1 Week
[2018-03-30] MEDS: Lexapro 10 MG PO SCH (08:34)
[2018-03-30] MEDS: PROTONIX 40 MG IV IV SCH (08:34)
[2018-03-30] MEDS: MAG-OX 400 PO SCH (08:34)
[2018-03-30] MEDS: Colace 100 MG PO SCH (08:35)
[2018-03-30] MEDS: Lasix 40 MG PO SCH (08:35)
[2018-03-30] MEDS: TYLENOL 325 MG PO SCH (08:35)
--- NOTE | 2018-04-03 22:58 | PCM.DS ---
Discharge Summary Date of Admission: 03/28/18 03:18 Date of Discharge: 03/30/18 Admitting Physician: DREW MCDONALD Primary Care Provider: SHWETA PEREZ Allergies Allergies No Known Drug Allergies Allergy (Verified 03/27/18 19:06) Hospital Summary - Hospital Course Hospital Course: presented with hx of recurrent bowel obstructions with 1 day history of vomiting and food intolerence fatigue and pain. the ct showed partial obstruction. she was placed npo. no ng was placed initially she was pain free and hungry on day 1 so ng was not placed and she did have small bm and had 2 gm on day 1 and diet was advanced to clear she tolerated and wbc improved to normal and tolerated full breakfast and was discharged. She has been previously evaluated by surgery and not been deemened a surgical candidate and with her rapid improvement this time they were not consulted on this visit. She struggled with her dementia she knew she was in the hospital but did not know why and didn't know where the hospital was or the year. She did know she lived at [facility] and wanted to go back there. She was discharged in good condition. Her ua was consistent with UTI and culture was + as well and she was started on cipro at discharge the e. coli was sensitive to this - Vitals & Intake/Output Vital Signs: Vital Signs Temperature 98.6 F 03/30/18 07:43 Pulse Rate 77 03/30/18 07:43 Respiratory Rate 16 03/30/18 07:43 Blood Pressure 151/71 03/30/18 07:43 O2 Sat by Pulse Oximetry 94 L 03/30/18 07:43 Oxygen-Last Documented O2 Percentage 2 Liters = 28% - Lab Result Diagrams: 03/30/18 05:25 03/30/18 05:25 Micro Results-Entire Visit: Microbiology 03/27/18 21:32 Urine Culture - Final Urine, Catheterized Escherichia Coli - Procedures and Test Procedures and Tests throughout Hospitalization: Therapy Orders & Screens 03/28/18 06:42 Oxygen NASAL CANNULA 2 lpm Comment: Diagnosis: small bowel obstruction Respiratory Therapy Assessment DAILY Comment: Diagnosis: small bowel obstruction Discharge Exam General Appearance: obese Neurologic Exam: alert, cooperative, No oriented x 3 Skin Exam: warm, dry Ears, Nose, Throat Exam: moist mucous membranes Neck Exam: non-tender, supple Respiratory Exam: normal breath sounds, lungs clear Cardiovascular Exam: regular rate/rhythm, No murmur Gastrointestinal/Abdomen Exam: soft, normal bowel sounds, No tenderness, No distention, No guarding, No ecchymosis Extremity Exam: normal inspection, No calf tenderness, No pedal edema Final Diagnosis/Problem List - Final Discharge Diagnosis/Problem (1) Small bowel obstruction, partial Status: Acute (2) Dementia Status: Chronic (3) HTN (hypertension) Status: Chronic (4) UTI (urinary tract infection) Status: Acute - Discharge Disposition: [place] [facility] Condition: Good Prescriptions: New Ciprofloxacin HCl [Cipro] 250 mg PO BID #10 tablet Continue Potassium Chloride 20 Meq Tab [Potassium Chloride 20 MEQ TABLET] 20 meq PO BID Furosemide [Lasix] 40 mg PO DAILY Magnesium Oxide 400 mg [Mag-Ox 400] 800 mg PO BID Docusate Sodium 100 mg [Colace 100 MG] 1 cap PO DAILY Acetaminophen 325 mg [Tylenol 325 mg] 650 mg PO DAILY Acetaminophen 325 mg [Tylenol 325 mg] 650 mg PO HS Atorvastatin Calcium 20 mg PO HS Lorazepam 0.5 mg [Ativan 0.5 MG] 0.25 mg PO HS #15 tablet Escitalopram Oxalate 10 mg [Lexapro 10 MG] 10 mg PO DAILY #30 tablet Pantoprazole 20 mg [Protonix 20MG Tablet] 20 mg PO BID Brimonidine Tartrate/Timolol [Combigan 0.2%-0.5% Eye Drops] 1 drop OP BID Acetaminophen 325 mg [Tylenol 325 mg] 650 mg PO Q4HPRN PRN PRN Reason: Pain And/Or Fever Sodium Phosphate,[place]-Dibasic [Enema] 1 applic [place] DIRECTIONS UNKNOWN PRN PRN Reason: Constipation Discontinued Smz/Tmp Ds Tablet [Bactrim Ds Tablet] 1 tab PO BID #8 tablet Instructions: Constipation, Adult (DC), Small Bowel Obstruction (DC) Follow up with: SHWETA PEREZ [Primary Care Provider] - 1 Week
== END 2018-03-30 10:00 | DRG 390 ==
LOC: ED 18:53 → MED SURG 03-28 03:18
PROVIDERS: ADMIT Family Medicine; ATTEND Family Medicine
DX: K56.600 Partial intestinal obstruction, unspecified as to cause (principal); K56.609 Unspecified intestinal obstruction, unspecified as to partial versus complete obstruction; K21.9 Gastro-esophageal reflux disease without esophagitis; K59.00 Constipation, unspecified; F03.90 Unspecified dementia, unspecified severity, without behavioral disturbance, psychotic disturbance, mood disturbance, and anxiety; I10 Essential (primary) hypertension; E11.9 Type 2 diabetes mellitus without complications; E78.00 Pure hypercholesterolemia, unspecified; Z79.899 Other long term (current) drug therapy
CPT/HCPCS: 36000; 36415; 74021; 74022; 74176; 80048; 80053; 81000; 83605; 83690; 83735; 84443; 84484; 85025; 85027; 87077; 87086; 87186; 94760; 96360; 96374; 96375; 99285; P9612; J2405; A9270-GY

== ENCOUNTER 2018-07-21 17:34 | Inpatient (IN) | payer MEDICARE ==
--- NOTE | 2018-07-21 17:55 | ERPHSYRPT ---
- History of Present Illness Time Seen by Provider: 07/21/18 17:49 Patient Subjective Stated Complaint: pt reports one episode of vomiting this afternoon. pt reports nausea. pt denies abd pain. Triage Nursing Assessment: pt is aox3, pupils perrl, afebrile, resps easy and non labored, radial pulses strong and equal, abd is soft and non tender with palpation, bowel sounds are present x4. skin pale warm and moist to touch. pt mucous membranes appear moist. Physician History: 82 y/o white female longterm pt presents with a vomiting this afternoon. pt currently denies nausea and denies abd pain. denies soa and denies cp. pt has a h/o bowel obstructions in the past Timing/Duration: today Activities at Onset: none Abdominal Pain Onset Location: generalized abdomen Pain Radiation: no radiation Severity of Pain-Max: mild Severity of Pain-Current: none Associated Symptoms: nausea, vomiting Previous symptoms: same symptoms as today Allergies/Adverse Reactions: No Known Drug Allergies Allergy (Verified 07/21/18 17:42) Home Medications: Potassium Chloride 20 Meq Tab [Potassium Chloride 20 MEQ TABLET] 20 meq PO BID 10/23/14 [History] Furosemide [Lasix] 40 mg PO DAILY 11/04/14 [History] Magnesium Oxide 400 mg [Mag-Ox 400] 800 mg PO BID 06/03/15 [History] Docusate Sodium 100 mg [Colace 100 MG] 1 cap PO DAILY 11/26/15 [History] Acetaminophen 325 mg [Tylenol 325 mg] 650 mg PO BID 03/28/17 [History] Atorvastatin Calcium 20 mg PO HS 04/29/17 [History] Pantoprazole 20 mg [Protonix 20MG Tablet] 20 mg PO BID 07/28/17 [History] Brimonidine Tartrate/Timolol [Combigan 0.2%-0.5% Eye Drops] 1 drop OP BID [History] Acetaminophen 325 mg [Tylenol 325 mg] 650 mg PO Q4HPRN PRN 03/28/18 [ History] Gabapentin [Neurontin] 300 mg PO BIDPRN PRN 07/21/18 [History] Polyethylene Glycol 3350 [Glycolax] 527 gm PO DAILY 07/21/18 [History] Hx Tetanus, Diphtheria Vaccination/Date Given: Yes Hx Influenza Vaccination/Date Given: Yes Hx Pneumococcal Vaccination/Date Given: Yes Immunizations Up to Date: Yes - Review of Systems Constitutional: No Symptoms, No Fever, No Weakness Eyes: No Symptoms Ears, Nose, & Throat: No Symptoms Respiratory: No Symptoms, No Cough, No Dyspnea Cardiac: No Symptoms, No Chest Pain, No Palpitations, No Syncope Abdominal/Gastrointestinal: Abdominal Pain (non now), Nausea, Vomiting Genitourinary Symptoms: No Symptoms Musculoskeletal: No Symptoms Skin: No Symptoms Neurological: No Symptoms Psychological: No Symptoms Endocrine: No Symptoms Hematologic/Lymphatic: No Symptoms Immunological/Allergic: No Symptoms All Other Systems: Reviewed and Negative - Past Medical History Pertinent Past Medical History: Yes Neurological History: Dementia ENT History: No Pertinent History Cardiac History: High Cholesterol, Hypertension Respiratory History: No Pertinent History Endocrine Medical History: Diabetes Type II Musculoskeletal History: No Pertinent History GI Medical History: GERD, Other History: No Pertinent History Psycho-Social History: No Pertinent History Female Reproductive Disorders: No Pertinent History Other Medical History: post procedural HTN, kidney infections, bowel obstructions & paralytic ileus. recalled from previous stay, pt confused - Past Surgical History Past Surgical History: Yes Neuro Surgical History: No Pertinent History Cardiac: No Pertinent History Respiratory: No Pertinent History Gastrointestinal: Cholecystectomy Genitourinary: No Pertinent History Musculoskeletal: No Pertinent History Female Surgical History: Hysterectomy Other Surgical History: Tonsils removed as child, [facility] did a stomach ulcer surgery about a year ago - Social History Smoking Status: Never smoker Exposure to second hand smoke: No Drug Use: none Patient Lives Alone: No - Female History Hx Now: No - Nursing Vital Signs Nursing Vital Signs: Initial Vital Signs Temperature 98.4 F 07/21/18 17:36 Pulse Rate 104 H 07/21/18 17:36 Respiratory Rate 20 07/21/18 17:36 Blood Pressure 160/89 07/21/18 17:36 O2 Sat by Pulse Oximetry 95 07/21/18 17:36 Pain Scale Pain Intensity 0 - Physical Exam General Appearance: no apparent distress, alert, anxiety Eye Exam: PERRL/EOMI, eyes nml inspection Ears, Nose, Throat Exam: normal ENT inspection, moist mucous membranes Neck Exam: normal inspection, non-tender, supple, full range of motion Respiratory Exam: normal breath sounds, lungs clear, airway intact, No chest tenderness, No respiratory distress, No accessory muscle use, No rhonchi, No wheezing, No stridor Cardiovascular Exam: regular rate/rhythm, normal heart sounds, normal peripheral pulses Gastrointestinal/Abdomen Exam: soft, normal bowel sounds, No guarding, No rebound Pelvic Exam: not done Rectal Exam: not done Back Exam: normal inspection, normal range of motion, No CVA tenderness, No vertebral tenderness Extremity Exam: normal inspection, normal range of motion, pelvis stable Neurologic Exam: alert, oriented x 3, cooperative, veterinary science teacher II-XII nml as tested Skin Exam: normal color, warm, dry Lymphatic Exam: No adenopathy SpO2 Interpretation: normal SpO2: 95 Oxygen Delivery: Room Air - Course Nursing assessment & vital signs reviewed: Yes EKG Interpreted by Me: RATE (98), NORMAL AXIS, Non-specific ST Changes, Other ( no sig change compared to ekg dated 11/04/14) Ordered Tests: Active Orders 24 hr Category Date Time Status ACCUCHECK [Accucheck] STAT Care 07/21/18 17:52 Active EKG-ER Only STAT Care 07/21/18 17:52 Active IV Insertion STAT Care 07/21/18 17:52 Active ABDOMEN AND PELVIS W/0 CONTRAS [CT] Stat Exams 07/21/18 17:58 Taken AMYLASE Stat Lab 07/21/18 18:25 Completed BLOOD CULTURE Stat Lab 07/21/18 Ordered CBC W DIFF Stat Lab 07/21/18 18:25 Completed CMP Stat Lab 07/21/18 18:25 Completed CULTURE,URINE Stat Lab 07/21/18 18:25 Received LIPASE Stat Lab 07/21/18 18:25 Completed Lactic Acid Stat Lab 07/21/18 18:51 Completed Manual Differential NC Stat Lab 07/21/18 18:25 Completed UA W/RFX UR CULTURE Stat Lab 07/21/18 18:25 Completed Medication Summary Generic Name Dose Route Start Last Admin Trade Name Freq PRN Reason Stop Dose Admin Sodium Chloride 1,000 mls @ 100 mls/hr 07/21/18 18:00 07/21/18 18:05 Sodium Chloride 0.9% 1000 Ml IV 08/20/18 17:59 100 mls/hr .Q10H LESLY Administration Discontinued Medications Generic Name Dose Route Start Last Admin Trade Name Freq PRN Reason Stop Dose Admin Ondansetron HCl 4 mg 07/21/18 17:57 07/21/18 18:06 Zofran 4 Mg/2 Ml Vial IV 07/21/18 17:58 4 mg STAT ONE Administration Ondansetron HCl Confirm 07/21/18 18:02 Zofran 4 Mg/2 Ml Vial Administered 07/21/18 18:03 Dose 4 mg .ROUTE .STK-MED ONE Lab/Rad Data: Laboratory Result Diagrams 07/21/18 18:25 07/21/18 18:25 Laboratory Results 07/21/18 07/21/18 07/21/18 Range/Units 18:51 18:25 18:25 WBC (4.0-10.5) K/mm3 RBC (4.1-5.4) M/mm3 Hgb (12.0-16.0) gm/dl Hct (35-47) % MCV (78-100) fl MCH (26-32) pg MCHC (32-36) g/dl RDW (11.5-14.0) % Plt Count (150-450) K/mm3 MPV (6-9.5) fl Gran % (36.0-66.0) % Eos # (Auto) (0-0.5) Absolute Lymphs (auto) (1.0-4.6) Absolute Monos (auto) (0.0-1.3) Lymphocytes % (24.0-44.0) % Monocytes % (0.0-12.0) % Eosinophils % (0.00-5.0) % Basophils % (0.0-0.4) % Absolute Granulocytes (1.4-6.9) Basophils # (0-0.4) Sodium 139 (137-145) mmol/L Potassium 4.3 (3.5-5.1) mmol/L Chloride 100 (98-107) mmol/L Carbon Dioxide 26 (22-30) mmol/L Anion Gap 17.2 H (5-15) MEQ/L BUN 30 H (7-17) mg/dL Creatinine 1.17 H (0.52-1.04) mg/dL Estimated GFR 47.2 ML/MIN Glucose 170 H (74-106) mg/dL Lactic Acid 1.7 (0.4-2.0) Calcium 10.3 H (8.4-10.2) mg/dL Total Bilirubin 0.50 (0.2-1.3) mg/dL AST 20 (14-36) U/L ALT 18 (0-35) U/L Alkaline Phosphatase 139 H (38-126) U/L Serum Total Protein 8.4 H (6.3-8.2) g/dL Albumin 4.7 (3.5-5.0) g/dL Amylase 94 (30-110) U/L Lipase 86 (23-300) U/L Urine Color KARLIE (YELLOW) Urine Appearance SLIGHTLY CLOUDY (CLEAR) Urine pH 5.0 (5-6) Ur Specific [place] 1.029 (1.005-1.025) Urine Protein NEGATIVE (Negative) Urine Ketones TRACE (NEGATIVE) Urine Blood MODERATE (0-5) Santy/ul Urine Nitrite NEGATIVE (NEGATIVE) Urine Bilirubin SMALL (NEGATIVE) Urine Urobilinogen 2 (0-1) mg/dL Ur Leukocyte Esterase TRACE (NEGATIVE) Urine WBC (Auto) 3-5 (0-5) /HPF Urine RBC (Auto) 16-25 (0-2) /HPF U Hyaline Cast (Auto) 26-50 (0-2) /LPF U Epithel Cells (Auto) MODERATE (FEW) /HPF Urine Bacteria (Auto) FEW (NEGATIVE) /HPF Urine Culture Reflexed YES (NO) Urine Glucose NEGATIVE (NEGATIVE) mg/dL 07/21/18 Range/Units 18:25 WBC 25.3 H* (4.0-10.5) K/mm3 RBC 5.31 (4.1-5.4) M/mm3 Hgb 15.0 (12.0-16.0) gm/dl Hct 47.9 H (35-47) % MCV 90.2 (78-100) fl MCH 28.2 (26-32) pg MCHC 31.3 L (32-36) g/dl RDW 13.8 (11.5-14.0) % Plt Count 303 (150-450) K/mm3 MPV 9.4 (6-9.5) fl Gran % 85.6 H (36.0-66.0) % Eos # (Auto) 0.21 (0-0.5) Absolute Lymphs (auto) 2.02 (1.0-4.6) Absolute Monos (auto) 1.35 H (0.0-1.3) Lymphocytes % 8.0 L (24.0-44.0) % Monocytes % 5.3 (0.0-12.0) % Eosinophils % 0.8 (0.00-5.0) % Basophils % 0.3 (0.0-0.4) % Absolute Granulocytes 21.66 H (1.4-6.9) Basophils # 0.07 (0-0.4) Sodium (137-145) mmol/L Potassium (3.5-5.1) mmol/L Chloride (98-107) mmol/L Carbon Dioxide (22-30) mmol/L Anion Gap (5-15) MEQ/L BUN (7-17) mg/dL Creatinine (0.52-1.04) mg/dL Estimated GFR ML/MIN Glucose (74-106) mg/dL Lactic Acid (0.4-2.0) Calcium (8.4-10.2) mg/dL Total Bilirubin (0.2-1.3) mg/dL AST (14-36) U/L ALT (0-35) U/L Alkaline Phosphatase (38-126) U/L Serum Total Protein (6.3-8.2) g/dL Albumin (3.5-5.0) g/dL Amylase (30-110) U/L Lipase (23-300) U/L Urine Color (YELLOW) Urine Appearance (CLEAR) Urine pH (5-6) Ur Specific [place] (1.005-1.025) Urine Protein (Negative) Urine Ketones (NEGATIVE) Urine Blood (0-5) Santy/ul Urine Nitrite (NEGATIVE) Urine Bilirubin (NEGATIVE) Urine Urobilinogen (0-1) mg/dL Ur Leukocyte Esterase (NEGATIVE) Urine WBC (Auto) (0-5) /HPF Urine RBC (Auto) (0-2) /HPF U Hyaline Cast (Auto) (0-2) /LPF U Epithel Cells (Auto) (FEW) /HPF Urine Bacteria (Auto) (NEGATIVE) /HPF Urine Culture Reflexed (NO) Urine Glucose (NEGATIVE) mg/dL - Progress Progress: improved, re-examined Progress Note: 07/21/18 20:13 pt currently states she is comfortable. no vomiting since her arrival at [address] carvajal. i reviewed pt hx, condition, lab, ekg and ct scan abd/pelvis-mod to high grade distal sbo;focal wall theckening and stricturing midsigmoid colon concerning for neoplasm; ant right pericardial soft tissue mass with invasion. possible invasive thymoma. dr. carvajal has been aware of the chest mass. sigmoid colon stricture new. is pt pcp. pt and family have refused surgical intervention in past. he accepts pt for admission. hold ngt now , ivf, antiemetics, unasyn. Discussed with : Tonia Counseled pt/family regarding: lab results, diagnosis, need for follow-up, rad results - Departure Time of Disposition: 20:18 Departure Disposition: In-patient Admission Clinical Impression: SBO (small bowel obstruction), Stricture of sigmoid colon, Pericardial mass Condition: Stable Critical Care Time: No Referrals: SHWETA PEREZ [Primary Care Provider] -
[2018-07-21] MEDS ORDERED: Zofran 4 MG/2 ML VIAL IV ONE (17:57)
[2018-07-21] MEDS ORDERED: Sodium Chloride 0.9% 1000 ML 1,000 ML IV SCH (18:00)
[2018-07-21] MEDS ORDERED: Zofran 4 MG/2 ML VIAL ONE (18:02)
[2018-07-21] MEDS ORDERED: Sodium Chloride 0.9% 1000 ML 1,000 ML ONE (18:02)
[2018-07-21 18:36] LABS: BASOPHIL % 0.3 % (0.0-0.4); Basophil (Absolute #) 0.07 (0-0.4); Eosinophil % 0.8 % (0.00-5.0); Eosinophil (Absolute #) 0.21 (0-0.5); Granulocyte Absolute (ANC) 21.66 (1.4-6.9); Granulocytes % 85.6 % (36.0-66.0); Hematocrit 47.9 % (35-47); Lymphocyte (Absolute #) 2.02 (1.0-4.6); Mean Cell Volume 90.2 fl (78-100); Mean Corpuscular Hemoglobin 28.2 pg (26-32); Mean Corpuscular Hgb Concent. 31.3 g/dl (32-36); Mean Platelet Volume 9.4 fl (6-9.5); Monocyte (Absolute #) 1.35 (0.0-1.3); Monocytes % 5.3 % (0.0-12.0); Platelet Count 303 K/mm3 (150-450); Red Blood Count 5.31 M/mm3 (4.1-5.4); Red Cell Distribution Width 13.8 % (11.5-14.0)
[2018-07-21 18:45] LABS: White Blood Count 25.3 K/mm3 (4.0-10.5)
[2018-07-21 18:52] LABS: Appearance SLIGHTLY CLOUDY (CLEAR); Bilirubin SMALL (NEGATIVE); Blood MODERATE Ery/ul (0-5); Glucose NEGATIVE (NEGATIVE); Ketones TRACE (NEGATIVE); Leukocyte Esterase TRACE (NEGATIVE); Nitrite NEGATIVE (NEGATIVE); Protein,Urine Dip NEGATIVE (Negative); Specific Gravity 1.029 (1.005-1.025); Urobilinogen 2 mg/dL (0-1)
[2018-07-21 18:53] LABS: ALBUMIN 4.7 g/dL (3.5-5.0); ANION GAP 17.2 MEQ/L (5-15); BILIRUBIN,TOTAL 0.5 mg/dL (0.2-1.3); Calcium 10.3 mg/dL (8.4-10.2); Creatinine 1 1.17 mg/dL (0.52-1.04); Potassium 4.3 mmol/L (3.5-5.1); Total Protein 8.4 g/dL (6.3-8.2)
[2018-07-21] MEDS ORDERED: Zofran 4 MG/2 ML VIAL IV PRN (20:52)
--- NOTE | 2018-07-21 21:41 | XRAY ---
Indication: Nausea and vomiting. Multiple contiguous axial images obtained through the abdomen and pelvis without contrast as ordered. Comparison: March 28, 2018. Lung bases demonstrates new 7 mm right lower lobe and 6 mm medial left lower lobe noncalcified nodules with respect to CT chest exam November 27, 2015. Stable mild bibasilar fibrosis/scarring. Heart is not enlarged. Partially visualized 3.2 x 4.5 cm anterior mediastinal soft tissue mass grossly similar in appearance to the CT chest exam. Stable moderate-sized hiatal hernia with partial intrathoracic stomach. Stomach demonstrate small amount of intraluminal radiopacity presumed ingested medication/bismuth. Small bowel loops again abnormally fluid distended up to 4.5 cm again with transition point seen infraumbilical midline concerning for partial small bowel obstruction. There is colonic bowel gas along with stable scattered colonic diverticulosis. Mid sigmoid colon now demonstrates focal wall thickening with pericolonic stranding and tiny pericolonic nodes concerning for malignancy. No free fluid/air. Again previous cholecystectomy, appendectomy, and hysterectomy. Stable hepatic calcified granuloma. Remaining liver, pancreas, spleen, adrenal glands, kidneys ureters, and bladder appear unremarkable for noncontrasted exam. Stable heavy aortoiliac calcifications without AAA. Osseous structures intact again with mild/moderate degenerative changes throughout the spine and mild double curvature scoliosis. No ventral or inguinal hernias. Impression: 1. Again abnormal fluid distended small bowel loops with transition point in the anterior mid abdomen favoring partial small bowel obstruction. 2. Focal wall thickening/stranding mid sigmoid colon with tiny pericolonic nodes concerning for malignancy. 3. New bibasilar subcentimeter noncalcified pulmonary nodules worrisome for metastasis. 4. Grossly stable partially visualized anterior mediastinal soft tissue mass dating back to CT chest November 27, 2015. Stable partial differential includes thymoma versus lymphoma versus metastasis. 5. Stable moderate-sized hiatal hernia and colonic diverticulosis. Comment: Preliminary interpretation was made by [facility]. No discrepancy. CTDI 23.29
[2018-07-21] MEDS ORDERED: Ativan 0.5 MG ONE (22:57)
[2018-07-21] MEDS ORDERED: Unasyn 1.5GM Vial ONE (22:58)
[2018-07-21] MEDS: Unasyn 1.5GM / NaCl 100ML 1.5 GM/100 ML IVPB IV SCH (23:40)
[2018-07-22 03:33] LABS: BAND 19 % (0.0-2.0); Basophil 1 % (0.0-1.0); Eosinophil 1 % (0.00-3.0); Lymphocytes 11 % (24-44); Monocyte 6 % (0.0-12.0); Neutrophils 62 % (36.0-66.0); Platelet Estimate NORMAL (NORMAL); Total Cells Counted 100; Toxic Granulation 1+
[2018-07-22 03:34] LABS: ANISOCYTOSIS 1+; Burr Cells RARE
[2018-07-22 06:07] LABS: BASOPHIL % 0.2 % (0.0-0.4); Basophil (Absolute #) 0.03 (0-0.4); Eosinophil % 0.3 % (0.00-5.0); Eosinophil (Absolute #) 0.05 (0-0.5); Granulocyte Absolute (ANC) 16.21 (1.4-6.9); Granulocytes % 85.3 % (36.0-66.0); Hematocrit 42.5 % (35-47); Hemoglobin 13.3 gm/dl (12.0-16.0); Lymphocytes % 8.9 % (24.0-44.0); Mean Cell Volume 91.6 fl (78-100); Mean Corpuscular Hemoglobin 28.7 pg (26-32); Mean Corpuscular Hgb Concent. 31.3 g/dl (32-36); Mean Platelet Volume 9.2 fl (6-9.5); Monocyte (Absolute #) 1.01 (0.0-1.3); Monocytes % 5.3 % (0.0-12.0); Platelet Count 326 K/mm3 (150-450); Red Blood Count 4.64 M/mm3 (4.1-5.4); Red Cell Distribution Width 13.9 % (11.5-14.0)
[2018-07-22 06:27] LABS: ANION GAP 15.6 MEQ/L (5-15); Creatinine 1 1.24 mg/dL (0.52-1.04); Potassium 4.5 mmol/L (3.5-5.1)
[2018-07-22] MEDS: Unasyn 1.5GM / NaCl 100ML 1.5 GM/100 ML IVPB IV SCH ×4 (09:20→21:36)
[2018-07-22] MEDS ORDERED: Ativan 2 MG/1 ML VIAL IV PRN (09:31)
--- NOTE | 2018-07-22 09:41 | PCM.HP ---
History of Present Illness - Chief Complaint Chief Complaint: Small Bowel obstruction Date: 07/22/18 History of Present Illness: is a 82 year old female. 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 She has had previous surgical consultation and was elected to treat these medically and they did not feel she was a good surgical candidate. She has had a mediastinal chest mass for several years that she has refused surgical evaluation of as well. She yesterday developed vomiting and not wanting to eat with fatigue. She was doing well prior to that [facility]. She was sent to the ED and found to have recurrence of the partial small bowel obstruction. She did have 2 episodes of vomitign on the floor and an NG was placed. She is feeling well now with no nausea and no abdominal pain and no shortness of breath. - Review of Systems Constitutional: No Fever, No Chills Eyes: No Symptoms Ears, Nose, & Throat: No Symptoms Respiratory: No Cough, No Short Of Breath Cardiac: No Chest Pain, No Edema, No Syncope Abdominal/Gastrointestinal: No Abdominal Pain, No Nausea, No Vomiting, No Diarrhea Genitourinary Symptoms: No Dysuria Musculoskeletal: No Back Pain, No Neck Pain Skin: No Rash Neurological: No Dizziness, No Focal Weakness, No Sensory Changes Psychological: No Symptoms Endocrine: No Symptoms Hematologic/Lymphatic: No Symptoms Immunological/Allergic: No Symptoms Medications & Allergies Home Medications: Home Medication List Potassium Chloride 20 Meq Tab [Potassium Chloride 20 MEQ TABLET] 20 meq PO BID 10/23/14 [History Confirmed 07/21/18] Furosemide [Lasix] 40 mg PO DAILY 11/04/14 [History Confirmed 07/21/18] Magnesium Oxide 400 mg [Mag-Ox 400] 800 mg PO BID 06/03/15 [History Confirmed 07/21/18] Docusate Sodium 100 mg [Colace 100 MG] 1 cap PO DAILY 11/26/15 [History Confirmed 07/21/18] Acetaminophen 325 mg [Tylenol 325 mg] 650 mg PO BID 03/28/17 [History Confirmed 07/21/18] Atorvastatin Calcium 20 mg PO HS 04/29/17 [History Confirmed 07/21/18] Escitalopram Oxalate 10 mg [Lexapro 10 MG] 10 mg PO DAILY #30 tablet [Rx Confirmed 07/21/18] Pantoprazole 20 mg [Protonix 20MG Tablet] 20 mg PO BID 07/28/17 [History Confirmed 07/21/18] Brimonidine Tartrate/Timolol [Combigan 0.2%-0.5% Eye Drops] 1 drop OP BID [History Confirmed 07/21/18] Acetaminophen 325 mg [Tylenol 325 mg] 650 mg PO Q4HPRN PRN 03/28/18 [ History Confirmed 07/21/18] Gabapentin [Neurontin] 300 mg PO BIDPRN PRN 07/21/18 [History Confirmed 07/21/18 ] Lorazepam 0.5 mg [Ativan 0.5 MG] 0.25 mg PO 1800 07/21/18 [History Confirmed 07/21/18] Lorazepam 0.5 mg [Ativan 0.5 MG] 0.5 mg PO HS 07/21/18 [History Confirmed 07/21/18] Polyethylene Glycol 3350 [Glycolax] 17 gm PO DAILY 07/21/18 [History Confirmed 07/21/18] Allergies/Adverse Reactions: Allergies Allergy/AdvReac Type Severity Reaction Status Date / Time No Known Drug Allergies Allergy Verified 07/21/18 17:42 - Past Medical History Past Medical History: Yes Neurological History: Dementia ENT History: No Pertinent History Cardiac History: High Cholesterol, Hypertension Respiratory History: No Pertinent History Endocrine Medical History: Diabetes Type II Musculoskelatal History: No Pertinent History GI Medical History: GERD, Other History: No Pertinent History Pyscho-Social History: No Pertinent History Reproductive Disorders: No Pertinent History Comment: post procedural HTN, kidney infections, bowel obstructions & paralytic ileus - Female History Are you now?: No - Past Surgical History Past Surgical History: Yes Neuro Surgical History: No Pertinent History Cardiac History: No Pertinent History Respiratory Surgery: No Pertinent History GI Surgical History: Cholecystectomy Genitourinary Surgical Hx: No Pertinent History Musculskeletal Surgical Hx: No Pertinent History Female Surgical History: Hysterectomy Other Surgical History: Tonsils removed as child, son [facility] did a stomach ulcer surgery - Social History Smoking Status: Never smoker Exposure to second hand smoke: No Alcohol: None Drug Use: none - Physical Exam Vital Signs: Vital Signs - 24 hr Temp Pulse Resp BP BP Pulse Ox 07/22/18 08:00 98.3 F 99 H 17 166/72 92 L 07/22/18 04:25 98.3 F 95 H 22 135/63 91 L 07/22/18 00:04 98.8 F 91 H 18 120/60 94 L 07/21/18 21:01 98.4 F 95 H 20 125/65 91 L 07/21/18 20:19 95 07/21/18 19:59 96 H 16 156/83 92 L 07/21/18 19:35 93 H 18 144/74 95 07/21/18 18:29 92 H 16 150/69 94 L 07/21/18 17:36 98.4 F 104 H 20 160/89 95 General Appearance: obese Neurologic Exam: alert, cooperative, No oriented x 3 (oriented to person and where she lives but not the hospital right now and not the time) Eye Exam: PERRL/EOMI, No scleral icterus, No pale conjunctivae Ears, Nose, Throat Exam: moist mucous membranes, other (NG in place with 200 mL out) Neck Exam: non-tender, supple Respiratory Exam: normal breath sounds, lungs clear Cardiovascular Exam: regular rate/rhythm, normal heart sounds, normal peripheral pulses Gastrointestinal/Abdomen Exam: soft, normal bowel sounds, No tenderness, No distention, No mass Results - Labs Lab/Micro Results: Accuchecks Accucheck Value: 141 Lab Results-Last 24 Hours 07/21/18 07/21/18 07/21/18 Range/Units 18:25 18:25 18:25 WBC 25.3 H* (4.0-10.5) K/mm3 RBC 5.31 (4.1-5.4) M/mm3 Hgb 15.0 (12.0-16.0) gm/dl Hct 47.9 H (35-47) % MCV 90.2 (78-100) fl MCH 28.2 (26-32) pg MCHC 31.3 L (32-36) g/dl RDW 13.8 (11.5-14.0) % Plt Count 303 (150-450) K/mm3 MPV 9.4 (6-9.5) fl Gran % 85.6 H (36.0-66.0) % Eos # (Auto) 0.21 (0-0.5) Absolute Lymphs (auto) 2.02 (1.0-4.6) Absolute Monos (auto) 1.35 H (0.0-1.3) Lymphocytes % 8.0 L (24.0-44.0) % Monocytes % 5.3 (0.0-12.0) % Eosinophils % 0.8 (0.00-5.0) % Basophils % 0.3 (0.0-0.4) % Absolute Granulocytes 21.66 H (1.4-6.9) Segmented Neutrophils 62 (36.0-66.0) % Band Neutrophils 19 H (0.0-2.0) % Lymphocytes (Manual) 11 L (24-44) % Monocytes (Manual) 6 (0.0-12.0) % Eosinophils (Manual) 1 (0.00-3.0) % Basophils (Manual) 1 (0.0-1.0) % Basophils # 0.07 (0-0.4) Toxic Granulation 1+ Platelet Estimate NORMAL (NORMAL) RBC Morphology ABNORMAL Anisocytosis 1+ Olegario Cells RARE Peripher Smr Path Cons Pending Sodium 139 (137-145) mmol/L Potassium 4.3 (3.5-5.1) mmol/L Chloride 100 (98-107) mmol/L Carbon Dioxide 26 (22-30) mmol/L Anion Gap 17.2 H (5-15) MEQ/L BUN 30 H (7-17) mg/dL Creatinine 1.17 H (0.52-1.04) mg/dL Estimated GFR 47.2 ML/MIN Glucose 170 H (74-106) mg/dL Lactic Acid (0.4-2.0) Calcium 10.3 H (8.4-10.2) mg/dL Total Bilirubin 0.50 (0.2-1.3) mg/dL AST 20 (14-36) U/L ALT 18 (0-35) U/L Alkaline Phosphatase 139 H (38-126) U/L Serum Total Protein 8.4 H (6.3-8.2) g/dL Albumin 4.7 (3.5-5.0) g/dL Amylase 94 (30-110) U/L Lipase 86 (23-300) U/L Urine Color KARLIE (YELLOW) Urine Appearance SLIGHTLY CLOUDY (CLEAR) Urine pH 5.0 (5-6) Ur Specific [place] 1.029 (1.005-1.025) Urine Protein NEGATIVE (Negative) Urine Ketones TRACE (NEGATIVE) Urine Blood MODERATE (0-5) Santy/ul Urine Nitrite NEGATIVE (NEGATIVE) Urine Bilirubin SMALL (NEGATIVE) Urine Urobilinogen 2 (0-1) mg/dL Ur Leukocyte Esterase TRACE (NEGATIVE) Urine WBC (Auto) 3-5 (0-5) /HPF Urine RBC (Auto) 16-25 (0-2) /HPF U Hyaline Cast (Auto) 26-50 (0-2) /LPF U Epithel Cells (Auto) MODERATE (FEW) /HPF Urine Bacteria (Auto) FEW (NEGATIVE) /HPF Urine Culture Reflexed YES (NO) Urine Glucose NEGATIVE (NEGATIVE) mg/dL 07/21/18 07/22/18 07/22/18 Range/Units 18:51 05:20 05:20 WBC 19.0 H (4.0-10.5) K/mm3 RBC 4.64 (4.1-5.4) M/mm3 Hgb 13.3 (12.0-16.0) gm/dl Hct 42.5 (35-47) % MCV 91.6 (78-100) fl MCH 28.7 (26-32) pg MCHC 31.3 L (32-36) g/dl RDW 13.9 (11.5-14.0) % Plt Count 326 (150-450) K/mm3 MPV 9.2 (6-9.5) fl Gran % 85.3 H (36.0-66.0) % Eos # (Auto) 0.05 (0-0.5) Absolute Lymphs (auto) 1.70 (1.0-4.6) Absolute Monos (auto) 1.01 (0.0-1.3) Lymphocytes % 8.9 L (24.0-44.0) % Monocytes % 5.3 (0.0-12.0) % Eosinophils % 0.3 (0.00-5.0) % Basophils % 0.2 (0.0-0.4) % Absolute Granulocytes 16.21 H (1.4-6.9) Segmented Neutrophils (36.0-66.0) % Band Neutrophils (0.0-2.0) % Lymphocytes (Manual) (24-44) % Monocytes (Manual) (0.0-12.0) % Eosinophils (Manual) (0.00-3.0) % Basophils (Manual) (0.0-1.0) % Basophils # 0.03 (0-0.4) Toxic Granulation Platelet Estimate (NORMAL) RBC Morphology Anisocytosis Eros Cells Peripher Smr Path Cons Sodium 141 (137-145) mmol/L Potassium 4.5 (3.5-5.1) mmol/L Chloride 98 (98-107) mmol/L Carbon Dioxide 31 H (22-30) mmol/L Anion Gap 15.6 H (5-15) MEQ/L BUN 38 H (7-17) mg/dL Creatinine 1.24 H (0.52-1.04) mg/dL Estimated GFR 44.1 ML/MIN Glucose 153 H (74-106) mg/dL Lactic Acid 1.7 (0.4-2.0) Calcium 9.0 (8.4-10.2) mg/dL Total Bilirubin (0.2-1.3) mg/dL AST (14-36) U/L ALT (0-35) U/L Alkaline Phosphatase (38-126) U/L Serum Total Protein (6.3-8.2) g/dL Albumin (3.5-5.0) g/dL Amylase (30-110) U/L Lipase (23-300) U/L Urine Color (YELLOW) Urine Appearance (CLEAR) Urine pH (5-6) Ur Specific [place] (1.005-1.025) Urine Protein (Negative) Urine Ketones (NEGATIVE) Urine Blood (0-5) Santy/ul Urine Nitrite (NEGATIVE) Urine Bilirubin (NEGATIVE) Urine Urobilinogen (0-1) mg/dL Ur Leukocyte Esterase (NEGATIVE) Urine WBC (Auto) (0-5) /HPF Urine RBC (Auto) (0-2) /HPF U Hyaline Cast (Auto) (0-2) /LPF U Epithel Cells (Auto) (FEW) /HPF Urine Bacteria (Auto) (NEGATIVE) /HPF Urine Culture Reflexed (NO) Urine Glucose (NEGATIVE) mg/dL Microbiology 07/21/18 18:25 Urine Culture - Preliminary Catherized NO GROWTH TO DATE Accuchecks Accucheck Value: 141 - Radiology Impressions Radiology Exams & Impressions: Radiology Procedures Category Date Time Status ABDOMEN AND PELVIS W/0 CONTRAS [CT] Stat Exams 07/21/18 17:58 Completed Assessment/Plan (1) Small bowel obstruction, partial Current Visit: Yes Status: Acute Assessment & Plan: NG placed she has had a bm now and the pain is resolved denies nausea now I discussed the surgical options with her of evaluation and colonoscopy evaluation fo the sigmoid mass that is new. She does not want this done. She wants to go back to [facility] and wait to see what happens with any potential cancer. SHe doesn't want to have any treatment or intervention for this. I discussed over the phone with her Son Minor and he confirms this is consistent with her wishes to not have any aggressive diagnostic evaluations unless it will improve her quality of life and does not want a surgery unless it was to treat something like an obstruction at this time. He would like to have it evaluated to see if the area is growing or changing in the future to help decide future decisions. Continue npo bowel rest and NG to low int suction back to [facility] when able to advance the diet. Code(s): K56.600 - PARTIAL INTESTINAL OBSTRUCTION, UNSPECIFIED TO CAUSE (2) Stricture of sigmoid colon Current Visit: Yes Status: Acute Code(s): K56.699 - OTHER INTESTNL OBST UNSP TO PARTIAL VERSUS COMPLETE OBST (3) Pericardial mass Current Visit: Yes Status: Acute Code(s): I31.9 - DISEASE OF PERICARDIUM, UNSPECIFIED (4) HTN (hypertension) Current Visit: Yes Status: Chronic Code(s): I10 - ESSENTIAL (PRIMARY) HYPERTENSION (5) Diabetes mellitus Current Visit: Yes Status: Chronic Qualifiers: Diabetes mellitus type: type 2 Code(s): E11.9 - TYPE 2 DIABETES MELLITUS WITHOUT COMPLICATIONS (6) Dementia Current Visit: Yes Status: Chronic Code(s): F03.90 - UNSPECIFIED DEMENTIA WITHOUT BEHAVIORAL DISTURBANCE
[2018-07-22] MEDS ORDERED: TYLENOL 325 MG PO SCH (10:00)
[2018-07-22] MEDS ORDERED: Protonix 20MG Tablet PO SCH (10:00)
[2018-07-22] MEDS ORDERED: NON-FORMULARY ITEM OP SCH (10:00)
[2018-07-22] MEDS: PROTONIX 40 MG IV IV SCH (10:15)
[2018-07-22] MEDS ORDERED: TYLENOL 325 MG PO PRN (10:51)
[2018-07-22] MEDS ORDERED: MEDICATION INTERVENTION MC SCH (11:30)
[2018-07-22] MEDS: Sodium Chloride 0.9% 1000 ML 1,000 ML IV SCH (15:14)
[2018-07-22] MEDS ORDERED: Ativan 0.5 MG PO SCH (22:00)
[2018-07-23] MEDS: Sodium Chloride 0.9% 1000 ML 1,000 ML IV SCH (00:40)
[2018-07-23 06:25] LABS: ALBUMIN 3.3 g/dL (3.5-5.0); ANION GAP 10.6 MEQ/L (5-15); BILIRUBIN,TOTAL 0.5 mg/dL (0.2-1.3); Calcium 7.7 mg/dL (8.4-10.2); Creatinine 1 0.99 mg/dL (0.52-1.04); Potassium 3.8 mmol/L (3.5-5.1)
[2018-07-23 06:28] LABS: BASOPHIL % 0.3 % (0.0-0.4); Basophil (Absolute #) 0.03 (0-0.4); Eosinophil % 2.1 % (0.00-5.0); Granulocytes % 66.5 % (36.0-66.0); Lymphocyte (Absolute #) 2.43 (1.0-4.6); Lymphocytes % 25.2 % (24.0-44.0); Mean Cell Volume 93.5 fl (78-100); Mean Corpuscular Hgb Concent. 30.6 g/dl (32-36); Monocyte (Absolute #) 0.57 (0.0-1.3); Monocytes % 5.9 % (0.0-12.0); Platelet Count 250 K/mm3 (150-450); Red Blood Count 3.85 M/mm3 (4.1-5.4); Red Cell Distribution Width 13.7 % (11.5-14.0); White Blood Count 9.6 K/mm3 (4.0-10.5)
[2018-07-23 06:30] LABS: Mean Corpuscular Hemoglobin 28.5 pg (26-32)
[2018-07-23] MEDS: Unasyn 1.5GM / NaCl 100ML 1.5 GM/100 ML IVPB IV SCH ×2 (09:13→13:13)
[2018-07-23] MEDS: PROTONIX 40 MG IV IV SCH (09:13)
--- NOTE | 2018-07-23 12:41 | PCM.DS ---
Discharge Summary Date of Admission: 07/21/18 20:17 Admitting Physician: DREW MCDONALD Primary Care Provider: DREW MCDONALD Allergies Allergies No Known Drug Allergies Allergy (Verified 07/21/18 17:42) Hospital Summary - Hospital Course Hospital Course: Pt is an 82 yo female pt of Dr. Mcdonald from [facility] with dementia, recurrent SBO, HTN, and DM who was admitted with SBO. On CT abd/pelvis she had findings consistent with SBO, as well as focal wall thickness mid sigmoid ( concern for malignancy), new pulmonary nodules (worrisome for metastases), anterior mediastinal mass (stable), mod HH, diverticulosis. Dr. Mcdonald talked with patient and her son Minor at length about these concerning findings and she refuses additional evaluation. On admission her WBC were 25.3. Today they are 9.6. She is currently tolerating a clear liquid diet. Had BM this morning. Would like to d/c back to [facility] today. Will advance diet to Full liquid this evening. If she tolerates that, advance to bland tomorrow and continue bland x 3d before returning to her previous diet. - Vitals & Intake/Output Vital Signs: Vital Signs Temperature 97.9 F 07/23/18 08:00 Pulse Rate 82 07/23/18 08:00 Respiratory Rate 18 07/23/18 08:00 Blood Pressure 142/64 07/23/18 08:00 O2 Sat by Pulse Oximetry 91 L 07/23/18 08:00 Intake & Output: Intake & Output 07/21/18 07/22/18 07/23/18 07/24/18 11:59 11:59 11:59 11:59 Intake Total 100 3717 Output Total 150 700 Balance -50 3017 Weight 105.1 kg - Lab Result Diagrams: 07/23/18 05:30 07/23/18 05:30 Lab Results-Last 24 Hrs: Lab Results-Last 24 Hours 07/23/18 07/23/18 Range/Units 05:30 05:30 WBC 9.6 (4.0-10.5) K/mm3 RBC 3.85 L (4.1-5.4) M/mm3 Hgb 11.0 L (12.0-16.0) gm/dl Hct 36.0 (35-47) % MCV 93.5 (78-100) fl MCH 28.5 (26-32) pg MCHC 30.6 L (32-36) g/dl RDW 13.7 (11.5-14.0) % Plt Count 250 (150-450) K/mm3 MPV 9.0 (6-9.5) fl Gran % 66.5 H (36.0-66.0) % Eos # (Auto) 0.20 (0-0.5) Absolute Lymphs (auto) 2.43 (1.0-4.6) Absolute Monos (auto) 0.57 (0.0-1.3) Lymphocytes % 25.2 (24.0-44.0) % Monocytes % 5.9 (0.0-12.0) % Eosinophils % 2.1 (0.00-5.0) % Basophils % 0.3 (0.0-0.4) % Absolute Granulocytes 6.40 (1.4-6.9) Basophils # 0.03 (0-0.4) Sodium 141 (137-145) mmol/L Potassium 3.8 (3.5-5.1) mmol/L Chloride 104 (98-107) mmol/L Carbon Dioxide 30 (22-30) mmol/L Anion Gap 10.6 (5-15) MEQ/L BUN 25 H (7-17) mg/dL Creatinine 0.99 (0.52-1.04) mg/dL Estimated GFR 57.2 ML/MIN Glucose 114 H (74-106) mg/dL Calcium 7.7 L (8.4-10.2) mg/dL Magnesium 2.0 (1.6-2.3) mg/dL Total Bilirubin 0.50 (0.2-1.3) mg/dL AST 15 (14-36) U/L ALT 12 (0-35) U/L Alkaline Phosphatase 91 (38-126) U/L Serum Total Protein 6.0 L (6.3-8.2) g/dL Albumin 3.3 L (3.5-5.0) g/dL Micro Results-Entire Visit: Microbiology 07/21/18 19:00 Blood Culture - Preliminary Blood NO GROWTH TO DATE 07/21/18 18:50 Blood Culture - Preliminary Blood NO GROWTH TO DATE 07/21/18 18:25 Urine Culture - Final Catherized NO GROWTH - Radiology Exams Ordered Rad Exams-Entire Visit: Radiology Procedures Category Date Time Status ABDOMEN AND PELVIS W/0 CONTRAS [CT] Stat Exams 07/21/18 17:58 Completed Discharge Exam General Appearance: no apparent distress, obese Neurologic Exam: alert, cooperative Skin Exam: normal color, warm, dry, No rash Respiratory Exam: normal breath sounds, lungs clear, No crackles/rales, No rhonchi, No wheezing Cardiovascular Exam: regular rate/rhythm, normal heart sounds, No murmur Gastrointestinal/Abdomen Exam: soft, normal bowel sounds, No tenderness, No distention, No mass, No guarding, No rebound Extremity Exam: normal inspection Final Diagnosis/Problem List - Final Discharge Diagnosis/Problem (1) Small bowel obstruction, partial Current Visit: Yes Status: Resolved Assessment & Plan: Appears resolved. Clinically doing well so will discharge to [facility] today. (2) Dementia Current Visit: Yes Status: Chronic (3) Diabetes mellitus Current Visit: Yes Status: Chronic (4) HTN (hypertension) Current Visit: Yes Status: Chronic (5) Mediastinal mass Current Visit: No Status: Chronic Assessment & Plan: with CT concerning for metastases. Discussed by Dr. Radu siddiqui pt and son Minor and she refuses any further workup. - Discharge Disposition: DC TO [facility] Condition: Stable Prescriptions: New Amoxicillin/Potassium Clav [Augmentin 875-125 Tablet] 875 mg PO BID #10 tablet Continue Potassium Chloride 20 Meq Tab [Potassium Chloride 20 MEQ TABLET] 20 meq PO BID Furosemide [Lasix] 40 mg PO DAILY Magnesium Oxide 400 mg [Mag-Ox 400] 800 mg PO BID Docusate Sodium 100 mg [Colace 100 MG] 1 cap PO DAILY Acetaminophen 325 mg [Tylenol 325 mg] 650 mg PO BID Atorvastatin Calcium 20 mg PO HS Escitalopram Oxalate 10 mg [Lexapro 10 MG] 10 mg PO DAILY #30 tablet Pantoprazole 20 mg [Protonix 20MG Tablet] 20 mg PO BID Brimonidine Tartrate/Timolol [Combigan 0.2%-0.5% Eye Drops] 1 drop OP BID Acetaminophen 325 mg [Tylenol 325 mg] 650 mg PO Q4HPRN PRN PRN Reason: Pain And/Or Fever Polyethylene Glycol 3350 [Glycolax] 17 gm PO DAILY Gabapentin [Neurontin] 300 mg PO BIDPRN PRN PRN Reason: Pain Lorazepam 0.5 mg [Ativan 0.5 MG] 0.5 mg PO HS Lorazepam 0.5 mg [Ativan 0.5 MG] 0.25 mg PO 1800 Additional Instructions: KAYLEIGH PEREZ ORDERS; FULL LIQUID DIET TODAY IF TOLERATES FULL LIQUID DIET - MAY ADVANCE TO BLAND TOMORROW BLAND DIET X 3 DAYS, THEN MAY RETURN TO PREVIOUS DIET ORDERS SEE ATTACHED MED LIST FOR CURRENT MED ORDERS RESUME ALL OTHER PREVIOUS ORDERS Follow up with: DREW MCDONALD [Primary Care Provider] - 1 Week
[2018-07-23 14:26] VITALS: BP 145/65; PULSE 79; O2SAT 95
== END 2018-07-23 15:00 | DRG 388 ==
LOC: ED 17:34 → MED SURG 20:17
PROVIDERS: ADMIT Family Medicine; ATTEND Family Medicine
DX: K56.600 Partial intestinal obstruction, unspecified as to cause (principal); J98.59 Other diseases of mediastinum, not elsewhere classified; I31.9 Disease of pericardium, unspecified; F03.90 Unspecified dementia, unspecified severity, without behavioral disturbance, psychotic disturbance, mood disturbance, and anxiety; K56.699 Other intestinal obstruction unspecified as to partial versus complete obstruction; Z79.899 Other long term (current) drug therapy; I10 Essential (primary) hypertension; E78.00 Pure hypercholesterolemia, unspecified; E11.9 Type 2 diabetes mellitus without complications; K21.9 Gastro-esophageal reflux disease without esophagitis
CPT/HCPCS: 36000; 36415; 74176; 80048; 80053; 81001; 82150; 82962; 83036; 83605; 83690; 83735; 85025; 85060; 87040; 87086; 93005; 96360; 96361; 96374; 99285; P9612; J0295; J2405; A9270-GY

== ENCOUNTER 2019-12-16 10:47 | Emergency (ER) | payer MEDICARE ==
--- NOTE | 2019-12-16 11:39 | ERPHSYRPT ---
- History of Present Illness Time Seen by Provider: 12/16/19 11:15 Historian: patient Exam Limitations: no limitations Patient Subjective Stated Complaint: Vomiting Triage Nursing Assessment: Patient brought into ED via EMS and transferred to bed with assist of 2. Patient A+O X3. Patient's skin pink, warm and dry. patient compains of vomiting. Patient denies pain or discomfort. Patient's abdomen round and hard with hypoactive bowel sounds. Physician History: Patient is an 84-year-old female resident at [facility] presents to our ED for evaluation of possible obstruction. Per report patient has been vomiting. Patient has a history of recurrent small bowel obstruction. Her only symptomology is nausea and vomiting. Patient denies pain. Patient has no chest pain or shortness of breath. No abdominal pain. Patient has not vomited today. Her last bout of emesis was last night. Timing/Duration: yesterday Activities at Onset: none Quality: other (Patient denies abdominal pain.) Severity of Pain-Max: none Severity of Pain-Current: none Modifying Factors: Improves With: nothing Associated Symptoms: nausea, vomiting, No back, No chest pain, No diaphoresis, No diarrhea, No fever/chills, No fatigue, No headache, No heartburn, No loss of appetite, No weakness, No other Previous symptoms: no recent treatment Allergies/Adverse Reactions: No Known Drug Allergies Allergy (Verified 12/16/19 11:20) Home Medications: Potassium Chloride 20 Meq Tab [Potassium Chloride 20 MEQ TABLET] 20 meq PO BID 10/23/14 [History] Furosemide [Lasix] 40 mg PO DAILY 11/04/14 [History] Magnesium Oxide 400 mg [Mag-Ox 400] 800 mg PO BID 06/03/15 [History] Docusate Sodium 100 mg [Colace 100 MG] 1 cap PO DAILY 11/26/15 [History] Acetaminophen 325 mg [Tylenol 325 mg] 650 mg PO BID 03/28/17 [History] Atorvastatin Calcium 20 mg PO HS 04/29/17 [History] Pantoprazole 20 mg [Protonix 20MG Tablet] 20 mg PO BID 07/28/17 [History] Brimonidine Tartrate/Timolol [Combigan 0.2%-0.5% Eye Drops] 1 drop OP BID [History] Acetaminophen 325 mg [Tylenol 325 mg] 650 mg PO Q4HPRN PRN 03/28/18 [ History] Gabapentin [Neurontin] 300 mg PO BIDPRN PRN 07/21/18 [History] Lorazepam 0.5 mg [Ativan 0.5 MG] 0.25 mg PO 1800 07/21/18 [History] Lorazepam 0.5 mg [Ativan 0.5 MG] 0.5 mg PO HS 07/21/18 [History] Polyethylene Glycol 3350 [Glycolax] 17 gm PO DAILY 07/21/18 [History] Hx Tetanus, Diphtheria Vaccination/Date Given: Yes Hx Influenza Vaccination/Date Given: Yes Hx Pneumococcal Vaccination/Date Given: Yes Immunizations Up to Date: Yes Travel Risk - International Travel Have you traveled outside of the country in past 3 weeks: No Have you or anyone close to you been diagnosed with or: No Do your reside in a community with a known COVID-19 case?: Yes If Yes where:: [facility] - Coronavirus Screening Has patient experienced Coronavirus symptoms: No - Review of Systems Constitutional: No Symptoms, No Fever, No Chills Eyes: No Symptoms Ears, Nose, & Throat: No Symptoms Respiratory: No Symptoms, No Cough, No Dyspnea Cardiac: No Symptoms, No Chest Pain, No Edema, No Syncope Abdominal/Gastrointestinal: No Symptoms, Nausea, Vomiting, No Abdominal Pain, No Diarrhea Genitourinary Symptoms: No Symptoms, No Dysuria Musculoskeletal: No Symptoms, No Back Pain, No Neck Pain Skin: No Symptoms, No Rash Neurological: No Symptoms, No Dizziness, No Focal Weakness, No Sensory Changes Psychological: No Symptoms Endocrine: No Symptoms Hematologic/Lymphatic: No Symptoms Immunological/Allergic: No Symptoms All Other Systems: Reviewed and Negative - Past Medical History Pertinent Past Medical History: Yes Neurological History: Dementia ENT History: No Pertinent History Cardiac History: High Cholesterol, Hypertension Respiratory History: No Pertinent History Endocrine Medical History: Diabetes Type II Musculoskeletal History: No Pertinent History GI Medical History: GERD, Other History: No Pertinent History Psycho-Social History: No Pertinent History Female Reproductive Disorders: No Pertinent History Other Medical History: post procedural HTN, kidney infections, bowel obstructions & paralytic ileus. recalled from previous stay, pt confused - Past Surgical History Past Surgical History: Yes Neuro Surgical History: No Pertinent History Cardiac: No Pertinent History Respiratory: No Pertinent History Gastrointestinal: Cholecystectomy Genitourinary: No Pertinent History Musculoskeletal: No Pertinent History Female Surgical History: Hysterectomy Other Surgical History: Tonsils removed as child, son states [facility] about a year ago - Social History Smoking Status: Never smoker Exposure to second hand smoke: No Drug Use: none Patient Lives Alone: No ([facility]) - Female History Hx Now: No - Nursing Vital Signs Nursing Vital Signs: Initial Vital Signs Pulse Rate 91 H 12/16/19 11:04 Respiratory Rate 16 12/16/19 11:04 Blood Pressure 129/76 12/16/19 11:04 O2 Sat by Pulse Oximetry 95 12/16/19 11:04 Pain Scale Pain Intensity 0 - Physical Exam General Appearance: no apparent distress, alert, other (Patient sitting up in bed. She is conversant well-appearing and in no acute distress. Patient denies abdominal pain. No pain at all at this time.) Eye Exam: PERRL/EOMI, eyes nml inspection Ears, Nose, Throat Exam: normal ENT inspection, pharynx normal, other (Somewhat dry appearing oral mucous membranes.), No TM abnormal (R), No TM abnormal (L) Neck Exam: normal inspection, non-tender, supple, full range of motion Respiratory Exam: normal breath sounds, lungs clear, No respiratory distress Cardiovascular Exam: regular rate/rhythm, normal heart sounds Gastrointestinal/Abdomen Exam: soft, No tenderness, No mass Pelvic Exam: not done Rectal Exam: deferred Back Exam: normal inspection, normal range of motion, No CVA tenderness, No vertebral tenderness Extremity Exam: normal inspection, normal range of motion, pelvis stable Neurologic Exam: alert, oriented x 3, cooperative, normal mood/affect, nml cerebellar function, sensation nml, No motor deficits Skin Exam: normal color, warm, dry SpO2 Interpretation: normal SpO2: 95 O2 Delivery: Room Air - Course Nursing assessment & vital signs reviewed: Yes EKG Interpreted by Me: RATE (83), Sinus Rhythm, NORMAL AXIS, Other (TWI / flattening anterolaterally) - CT Exams Abdomen/Pelvis CT Interpretation: Tele-radiologist Report (Lung bases show bilateral pulmonary nodules favoring metastatic disease. There is pericardiac soft tissue mass favoring metastatic adenopathy. There is an ileus versus enteritis. Diverticulosis. Sigmoid colon worsening bowel wall thickening with stranding favoring malignancy. Liver lesions favoring metastatic disease osteopenia and DJD.) Ordered Tests: Active Orders 24 hr Category Date Time Status ACCUCHECK [Accucheck] STAT Care 12/16/19 14:40 Active EKG-ER Only STAT Care 12/16/19 12:19 Active Huang [Catheter-[place] Huang] STAT Care 12/16/19 12:06 Active IV Insertion STAT Care 12/16/19 12:06 Active ABDOMEN AND PELVIS W/0 CONTRAS [CT] Stat Exams 12/16/19 12:19 Completed CBC W DIFF Stat Lab 12/16/19 13:28 Completed CMP Stat Lab 12/16/19 13:28 Completed CULTURE,URINE Stat Lab 12/16/19 13:46 Received LIPASE Stat Lab 12/16/19 13:28 Completed TROPONIN Q3H Lab 12/16/19 13:28 Completed TROPONIN Q3H Lab 12/16/19 15:30 Ordered TROPONIN Q3H Lab 12/16/19 18:30 Ordered TROPONIN Q3H Lab 12/16/19 21:30 Ordered TROPONIN Q3H Lab 12/17/19 00:30 Ordered UA W/RFX UR CULTURE Stat Lab 12/16/19 13:46 Completed Transfer Order Routine Transfer 12/16/19 Ordered Medication Summary Discontinued Medications Generic Name Dose Route Start Last Admin Trade Name Freq PRN Reason Stop Dose Admin Fluconazole 150 mg 12/16/19 14:24 12/16/19 14:34 Diflucan PO 12/16/19 14:25 150 mg ONCE STA Administration Sodium Chloride 1,000 mls @ 999 mls/hr 12/16/19 14:02 12/16/19 14:06 Sodium Chloride 0.9% 1000 Ml IV 12/16/19 15:02 999 mls/hr .Q1H1M STA Administration Sodium Chloride Confirm 12/16/19 14:05 Sodium Chloride 0.9% 1000 Ml Administered 12/16/19 14:06 Dose 1,000 mls @ ud .ROUTE .STK-MED ONE Insulin Human Regular 2 unit 12/16/19 14:30 12/16/19 14:52 Humulin R IV 12/16/19 14:31 Not Given STAT ONE Insulin Human Regular Confirm 05/18/20 14:34 Humulin R Administered 12/16/19 14:35 Dose 2 unit .ROUTE .STK-MED ONE Lab/Rad Data: Laboratory Result Diagrams 12/16/19 13:28 12/16/19 13:28 Laboratory Results 12/16/19 12/16/19 12/16/19 Range/Units 13:46 13:28 13:28 WBC (4.0-10.5) K/mm3 RBC (4.1-5.4) M/mm3 Hgb (12.0-16.0) gm/dl Hct (35-47) % MCV (78-100) fl MCH (26-32) pg MCHC (32-36) g/dl RDW (11.5-14.0) % Plt Count (150-450) K/mm3 MPV (7.5-11.0) fl Gran % (36.0-66.0) % Eos # (Auto) (0-0.5) Absolute Lymphs (auto) (1.0-4.6) Absolute Monos (auto) (0.0-1.3) Lymphocytes % (24.0-44.0) % Monocytes % (0.0-12.0) % Eosinophils % (0.00-5.0) % Basophils % (0.0-0.4) % Absolute Granulocytes (1.4-6.9) Basophils # (0-0.4) Sodium 136 L (137-145) mmol/L Potassium 3.9 (3.5-5.1) mmol/L Chloride 99 (98-107) mmol/L Carbon Dioxide 27 (22-30) mmol/L Anion Gap 13.9 (5-15) MEQ/L BUN 31 H (7-17) mg/dL Creatinine 1.26 H (0.52-1.04) mg/dL Estimated GFR 43.1 ML/MIN Glucose 106 (74-106) mg/dL Calcium 8.4 (8.4-10.2) mg/dL Total Bilirubin 0.50 (0.2-1.3) mg/dL AST 21 (14-36) U/L ALT 11 (0-35) U/L Alkaline Phosphatase 173 H (38-126) U/L Troponin I < 0.012 (0.000-0.034) ng/mL Serum Total Protein 6.7 (6.3-8.2) g/dL Albumin 3.6 (3.5-5.0) g/dL Lipase 42 (23-300) U/L Urine Color YELLOW (YELLOW) Urine Appearance CLOUDY (CLEAR) Urine pH 5.0 (5-6) Ur Specific [place] 1.024 (1.005-1.025) Urine Protein NEGATIVE (Negative) Urine Ketones NEGATIVE (NEGATIVE) Urine Blood NEGATIVE (0-5) Santy/ul Urine Nitrite NEGATIVE (NEGATIVE) Urine Bilirubin NEGATIVE (NEGATIVE) Urine Urobilinogen NEGATIVE (0-1) mg/dL Ur Leukocyte Esterase NEGATIVE (NEGATIVE) Urine WBC (Auto) 3-5 (0-5) /HPF Urine RBC (Auto) 0-2 (0-2) /HPF U Epithel Cells (Auto) RARE (FEW) /HPF Urine Bacteria (Auto) PACKED (NEGATIVE) /HPF Urine Mucus (Auto) SLIGHT (NEGATIVE) /HPF Urine Yeast (Budding) Rare (NEGATIVE) /HPF Urine Culture Reflexed YES (NO) Urine Glucose NEGATIVE (NEGATIVE) mg/dL 12/16/19 Range/Units 13:28 WBC 16.7 H (4.0-10.5) K/mm3 RBC 4.42 (4.1-5.4) M/mm3 Hgb 11.3 L (12.0-16.0) gm/dl Hct 36.5 (35-47) % MCV 82.6 (78-100) fl MCH 25.6 L (26-32) pg MCHC 31.0 L (32-36) g/dl RDW 15.4 H (11.5-14.0) % Plt Count 469 H (150-450) K/mm3 MPV 8.6 (7.5-11.0) fl Gran % 72.7 H (36.0-66.0) % Eos # (Auto) 0.22 (0-0.5) Absolute Lymphs (auto) 3.27 (1.0-4.6) Absolute Monos (auto) 1.04 (0.0-1.3) Lymphocytes % 19.6 L (24.0-44.0) % Monocytes % 6.2 (0.0-12.0) % Eosinophils % 1.3 (0.00-5.0) % Basophils % 0.2 (0.0-0.4) % Absolute Granulocytes 12.11 H (1.4-6.9) Basophils # 0.04 (0-0.4) Sodium (137-145) mmol/L Potassium (3.5-5.1) mmol/L Chloride (98-107) mmol/L Carbon Dioxide (22-30) mmol/L Anion Gap (5-15) MEQ/L BUN (7-17) mg/dL Creatinine (0.52-1.04) mg/dL Estimated GFR ML/MIN Glucose (74-106) mg/dL Calcium (8.4-10.2) mg/dL Total Bilirubin (0.2-1.3) mg/dL AST (14-36) U/L ALT (0-35) U/L Alkaline Phosphatase (38-126) U/L Troponin I (0.000-0.034) ng/mL Serum Total Protein (6.3-8.2) g/dL Albumin (3.5-5.0) g/dL Lipase (23-300) U/L Urine Color (YELLOW) Urine Appearance (CLEAR) Urine pH (5-6) Ur Specific [place] (1.005-1.025) Urine Protein (Negative) Urine Ketones (NEGATIVE) Urine Blood (0-5) Santy/ul Urine Nitrite (NEGATIVE) Urine Bilirubin (NEGATIVE) Urine Urobilinogen (0-1) mg/dL Ur Leukocyte Esterase (NEGATIVE) Urine WBC (Auto) (0-5) /HPF Urine RBC (Auto) (0-2) /HPF U Epithel Cells (Auto) (FEW) /HPF Urine Bacteria (Auto) (NEGATIVE) /HPF Urine Mucus (Auto) (NEGATIVE) /HPF Urine Yeast (Budding) (NEGATIVE) /HPF Urine Culture Reflexed (NO) Urine Glucose (NEGATIVE) mg/dL - Progress Progress: improved Progress Note: 12/16/19 15:06 Patient reassessed. She is tolerating p.o. Work-up significant for possible metastatic disease. UA sent for culture. No nausea or vomiting observed while in our ED. Patient tolerated p.o. Physical exam suggested mild dehydration. IV fluids administered. Case discussed with patient's primary physician, Dr. Turner. The CAT scan findings of possible metastatic disease and primary CA will be worked up as an outpatient. 12/16/19 15:[address] Leonel Will see patient in: office Counseled pt/family regarding: lab results, diagnosis, need for follow-up, rad results - Departure Departure Disposition: Home Clinical Impression: Metastatic disease, Colon cancer metastasized to liver, Liver lesion, Lymphadenopathy, Ileus, Diverticulosis, Osteopenia, DJD (degenerative joint disease), Hiatal hernia, Nausea & vomiting, Leukocytosis, Yeast cystitis Condition: Stable Critical Care Time: No Referrals: SHWETA PEREZ [Primary Care Provider] - Additional Instructions: Discharge/Care Plan MORE COVARRUBIAS was seen on 12/16/19 in the Emergency Room. The patient was counseled regarding Diagnosis,Lab results, Imaging studies, need for follow up and when to return to the Emergency Room. Prescriptions given: Discharge Note I have spoken with the patient and/or caregivers. I have explained the patient' s condition, diagnosis and treatment plan based on the information available to me at this time. I have answered the patient's and/or caregiver's questions and addressed any concerns. The patient and/or caregivers have as good understanding of the patient's diagnosis, condition and treatment plan as can be expected at this point. The vital signs have been stable. The patient's condition is stable and appropriate for discharge from the emergency department. The patient will pursue further outpatient evaluation with the primary care physician or other designated or consulting physician as outlined in the discharge instructions. The patient and/or caregivers are agreeable to this plan of care and follow-up instructions have been explained in detail. The patient and/or caregivers have received these instruction. The patient/and or caregivers are aware that any significant change in condition or worsening of symptoms should prompt an immediate return to this or the closest emergency department or call 911.
--- NOTE | 2019-12-16 13:03 | XRAY ---
Indication: Diarrhea. Possible obstruction. Multiple contiguous axial images obtained through the abdomen and pelvis without contrast as ordered. Comparison: July 21, 2018. Lung bases demonstrates markedly increased multiple bilateral pulmonary nodules again favor metastasis. Heart is not enlarged. New incompletely visualized 1.5 x1.8 cm right pericardiac soft tissue mass probably metastatic adenopathy. Hiatal hernia appears smaller. Noncontrasted stomach unremarkable. Noncontrasted small bowel loops are now mild/moderately fluid distended throughout with synchronous fluid leveling, ileus versus enteritis. Right lower quadrant bowel loop now demonstrates dense intraluminal density presumed ingested barium versus medication/bismuth. Again mild scattered colonic diverticulosis. Mid to proximal sigmoid colon demonstrate worsening bowel wall thickening with mild stranding again worrisome for malignancy. Liver demonstrates new multiple hypodense lesions worrisome for metastasis, largest right lobe measuring 4.6 x 4.9 cm. No free fluid/air. Again previous cholecystectomy and hysterectomy. New Huang catheter drains the urinary bladder. Remaining pancreas, spleen, adrenal glands, kidneys, and ureters unremarkable for noncontrast exam. There remains very scattered aortoiliac calcifications without AAA. Osseous structures again demonstrates osteopenia, mild/moderate degenerative changes throughout the thoracolumbar spine, mild lumbar dextroscoliosis, and mild bilateral hip degenerative arthropathy. Impression: 1. Markedly worsening pulmonary metastasis. New right pericardial soft tissue mass probably metastatic adenopathy. 2. Interval worsening sigmoid bowel wall thickening and stranding again concerning for malignancy. 3. New diffuse hepatic metastasis. 4. Mild diffuse fluid distended small bowel loops with synchronous fluid leveling, ileus versus enteritis. 5. Again incidental findings including hiatal hernia, colonic diverticulosis, and chronic bony findings. New Huang catheter in situ.
[2019-12-16 13:25] LABS: Absolute Neutrophil Ct (ANC) 12.11 (1.4-6.9); BASOPHIL % 0.2 % (0.0-0.4); Basophil (Absolute #) 0.04 (0-0.4); Eosinophil % 1.3 % (0.00-5.0); Eosinophil (Absolute #) 0.22 (0-0.5); Hematocrit 36.5 % (35-47); Hemoglobin 11.3 gm/dl (12.0-16.0); Lymphocyte (Absolute #) 3.27 (1.0-4.6); Lymphocytes % 19.6 % (24.0-44.0); Mean Cell Volume 82.6 fl (78-100); Mean Corpuscular Hemoglobin 25.6 pg (26-32); Mean Platelet Volume 8.6 fl (7.5-11.0); Monocyte (Absolute #) 1.04 (0.0-1.3); Monocytes % 6.2 % (0.0-12.0); Neutrophil % 72.7 % (36.0-66.0); Platelet Count 469 K/mm3 (150-450); Red Blood Count 4.42 M/mm3 (4.1-5.4); Red Cell Distribution Width 15.4 % (11.5-14.0); White Blood Count 16.7 K/mm3 (4.0-10.5)
[2019-12-16 13:34] LABS: ALBUMIN 3.6 g/dL (3.5-5.0); ANION GAP 13.9 MEQ/L (5-15); BILIRUBIN,TOTAL 0.5 mg/dL (0.2-1.3); Calcium 8.4 mg/dL (8.4-10.2); Creatinine 1 1.26 mg/dL (0.52-1.04); Potassium 3.9 mmol/L (3.5-5.1); Total Protein 6.7 g/dL (6.3-8.2)
[2019-12-16] MEDS ORDERED: Sodium Chloride 0.9% 1000 ML 1,000 ML IV STA (14:02)
[2019-12-16] MEDS ORDERED: Sodium Chloride 0.9% 1000 ML 1,000 ML ONE (14:05)
[2019-12-16 14:18] LABS: Appearance CLOUDY (CLEAR); Bacteria PACKED /HPF (NEGATIVE); Bilirubin NEGATIVE (NEGATIVE); Blood NEGATIVE Ery/ul (0-5); Epithelial Cells RARE /HPF (FEW); Glucose NEGATIVE (NEGATIVE); Ketones NEGATIVE (NEGATIVE); Leukocyte Esterase NEGATIVE (NEGATIVE); Mucus SLIGHT /HPF (NEGATIVE); Nitrite NEGATIVE (NEGATIVE); Protein,Urine Dip NEGATIVE (Negative); RBC 0-2 /HPF (0-2); Specific Gravity 1.024 (1.005-1.025); Urobilinogen NEGATIVE mg/dL (0-1)
[2019-12-16 14:19] VITALS: BP 148/61; PULSE 84
[2019-12-16 14:19] LABS: Budding Yeast Rare /HPF (NEGATIVE)
[2019-12-16 14:23] VITALS: O2SAT 95
[2019-12-16] MEDS ORDERED: DIFLUCAN PO STA (14:24)
[2019-12-16] MEDS: HUMULIN R IV ONE ×2 (14:34→14:52)
[2019-12-16] MEDS ORDERED: HUMULIN R ONE (14:34)
== END 2019-12-16 16:36 | disposition home or self-care (01) ==
LOC: ED 10:47
DX: C18.9 Malignant neoplasm of colon, unspecified (principal); C78.7 Secondary malignant neoplasm of liver and intrahepatic bile duct; R59.1 Generalized enlarged lymph nodes; K56.0 Paralytic ileus; K57.90 Diverticulosis of intestine, part unspecified, without perforation or abscess without bleeding; M85.80 Other specified disorders of bone density and structure, unspecified site; M19.90 Unspecified osteoarthritis, unspecified site; K44.9 Diaphragmatic hernia without obstruction or gangrene; R11.2 Nausea with vomiting, unspecified; D72.829 Elevated white blood cell count, unspecified; B37.41 Candidal cystitis and urethritis; Z79.899 Other long term (current) drug therapy; I10 Essential (primary) hypertension; F03.90 Unspecified dementia, unspecified severity, without behavioral disturbance, psychotic disturbance, mood disturbance, and anxiety; E78.00 Pure hypercholesterolemia, unspecified; E11.9 Type 2 diabetes mellitus without complications; K21.9 Gastro-esophageal reflux disease without esophagitis
CPT/HCPCS: 36000; 36415; 51702; 74176; 80053; 81001; 82962; 83690; 84484; 85025; 87077; 87086; 87186; 93005; 96360; 99285; J1815; A9270-GY